=== PATIENT | male | born 1930 | race Caucasian/White ===

== ENCOUNTER → 2016-08-24 | Outpatient (CLI) | payer OTHER ==
[~2016-08-24] MED LIST: ADVIN25/60 INH; ALBUAER2 INH; AMLO-110 PO; ASPEC81 PO; AZITTAB PO; B-COTAB18 PO; FLUO0.0566 TOP; HYDR5SYP11 PO; HYT/2 PO; LOSA1TAB PO; LOSA25TA18 PO; MAGNTAB4 PO; METF-384 PO; METO-217 PO; NTRGSL/4 UT; PRIM50TA29 PO; PRLSR20 PO; SIMV20TA2 PO
--- NOTE | 2016-08-24 12:39 | MAMMOGRAPHY REPORT ---
MALE UNILATERAL LEFT DIGITAL DIAGNOSTIC MAMMOGRAM WITH CAD AND TARGETED LEFT ULTRASOUND: 08/24/2016 CLINICAL HISTORY: The patient reports a palpable lump and associated tenderness in the left breast. TECHNIQUE: Current study was also evaluated with a Computer Aided Detection (CAD) system. Left CC and MLO images were obtained. COMPARISON: Comparison is made to exams dated: 09/23/2015 mammogram and 09/23/2015 ultrasound - [facility]. BREAST COMPOSITION: The tissue of the left breast is predominantly fatty. FINDINGS: There is flame-shaped fibroglandular tissue is seen within the left subareolar breast, co nsistent with benign gynecomastia. This is stable compared to the 09/23/2015 exam. The remainder of the left breast is negative, without suspicious masses, calcifications, or areas of architectural d istortion noted. Targeted ultrasound was performed of the area of the palpable lump pointed out by the patient, in th e left breast at 12:00 periareolar region. Ultrasound was also performed of the left subareolar elen ast. Gynecomastia is again noted in the left breast which corresponds with the palpable lump, witho ut evidence of a mass or other suspicious sonographic abnormality. IMPRESSION: ACR BI-RADS CATEGORY 2: BENIGN, TARGETED ULTRASOUND ACR BI-RADS CATEGORY 2: BENIGN Left breast gynecomastia, stable compared to the August 2015 exam, which accounts for the palpable le ft breast lump. There is no mammographic or targeted sonographic evidence of malignancy. Recommend clinical follow-up as to the possible underlying cause. The patient has been verbally notified of the results. Approximately 10% of breast cancers are not detected with mammography. A negative mammographic repor t should not delay biopsy if a clinically suggestive mass is present. Shivani Lee M.D. /:08/24/2016 11:55:06 Compliance And Control Analyst: Leena HARRIS)([place]), [facility] letter sent: Normal 1/2 BI-RADS Code: ACR BI-RADS Category 2: Benign Ultrasound BI-RADS: ACR BI-RADS Category 2: Benign
== END | disposition home or self-care (01) ==
LOC: C.MAMM 10:59
PROVIDERS: ATTEND General Practice
DX: N64.4 Mastodynia (principal); N62 Hypertrophy of breast

== ENCOUNTER 2016-09-08 09:05 | Emergency (ER) | payer OTHER ==
[~2016-09-08] VITALS: Ht 160 cm; Wt 70.7 kg
[~2016-09-08 09:05] MED LIST changes: -AZITTAB PO; -FLUO0.0566 TOP; -HYDR5SYP11 PO; -LOSA1TAB PO; -LOSA25TA18 PO; -PRIM50TA29 PO
[2016-09-08 09:09] VITALS: TEMP 36.9; Ht 160 cm; Wt 70.7 kg
[2016-09-08] MEDS ORDERED: DEXAMETHASONE SOD INJ 4 MG/ML VIAL IM STA (09:21)
[2016-09-08] MEDS ORDERED: ALBUT/IPRATROP 3MG/0.5MG NEB 3 ML VIAL INH STA (09:21)
[2016-09-08] MEDS ORDERED: HYDROCODONE/HOMATROPINE SYRUP 5MG/1.5MG 5ML UDP PO STA (09:21)
[2016-09-08] MEDS ORDERED: AZITHROMYCIN 250 MG TAB PO STA (09:21)
--- NOTE | 2016-09-08 09:47 | DIAGNOSTIC IMAGING REPORT ---
CHEST 2 VIEWS ROUTINE CLINICAL HISTORY: EVALUATE RESPIRATORY DISTRESS.DYSPNEA, cough dyspnea COMPARISON STUDY: 10/22/2014 FINDINGS: The bones soft tissues and hemidiaphragms are normal. The cardiomediastinal silhouette is normal. The lungs are clear. The pulmonary vasculature is normal. Bipolar cardiac pacemaker in good position. Bilateral shoulder arthroplasties. IMPRESSION: Negative chest. Electronically signed by: Sanjay Mtz M.D. 09/08/2016 9:45 AM Dictated Date/Time: 09/08/2016 9:44 AM
[2016-09-08] MEDS ORDERED: PRIM50TA29 PO (09:56)
[2016-09-08] MEDS ORDERED: FLUO0.0566 TOP (09:56)
[2016-09-08] MEDS ORDERED: LOSA25TA18 PO (09:56)
[2016-09-08] MEDS ORDERED: LOSA1TAB PO (09:56)
[2016-09-08 11:00] VITALS: BP 165/76; PULSE 73; O2SAT 91
[2016-09-08] MEDS ORDERED: AZITTAB PO (11:19)
[2016-09-08] MEDS ORDERED: HYDR5SYP11 PO (11:19)
--- NOTE | 2016-09-08 11:21 | EMERGENCY ROOM VISIT NOTE ---
History Report prepared by Niraj: Kristel Polanco Under the Supervision of: Dr. Aquilino Soriano D.O. First contact with patient: 09:16 Chief Complaint: COUGH Stated Complaint: COUGH, CHEST PAIN History of Present Illness The patient is a 86 year old male who presents to the Emergency Room with complaints of a persistent cough starting 3 days ago. The cough is not productive. He reports SOB and sore throat. He had an ear ache on Monday also. [facility] and [facility] fine then. The cough persisted until today and [facility] he was told to present to [facility]. He has an inhaler at home which he has not been using. He has a history of diabetes and COPD. Source of History: patient Onset: 3 days ago Position: other (global) Quality: other (cough) Timing: other (persistent) Associated Symptoms: + SOB, + sorethroat Note: Pt reports ear ache. Review of Systems See HPI for pertinent positives & negatives. A total of 10 systems reviewed and were otherwise negative. 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 (14) Hypertension Nos (15) Inguinal hernia (16) Old Myocardial Infarct (17) Pure Hypercholesterolem (18) SHOULDER ARTHROSCOPY (19) Transient ischemic attack Family History Diabetes mellitus FHx: cancer Hypertension Social History Smoking Status: Former Smoker Alcohol Use: none Marital Status: Housing Status: lives with significant other Occupation Status: retired Current/Historical Medications Scheduled Amlodipine (Norvasc), 10 MG PO QAM Aspirin Enteric Coated (Ecotrin Or Generic *), 81 MG PO DAILY Azithromycin (Zithromax Z-Jose), 0 PO UD B-Complex Vitamins (Vitamin B Complex), 1 TAB PO 1200 Fluocinonide (Fluocinonide), 1 APPLN TOP BID Losartan Potassium (Cozaar), 25 MG PO DAILY@1200 Magnesium Chloride (Slow-Mag Tab), 64 MG PO BID Metformin Hcl (Glucophage), 500 MG PO BID Metoprolol Succinate (Toprol Xl), 25 MG PO QAM Nitroglycerin (Nitrostat), 0.4 MG UT PRN Omeprazole (Prilosec), 20 MG PO QPM Primidone (Mysoline), 25 MG PO BID Simvastatin (Zocor), 10 MG PO QPM Terazosin Hcl (Hytrin), 2 MG PO HS Scheduled PRN Albuterol (Ventolin Hfa), 2 PUFF INH QID PRN for SOB/Wheezing Fluticasone Prop/Salmeterol (Advair Diskus 250/50 60 Dose), 1 PUFF INH BID PRN for MD ORDER Hydrocodone W/ Homatropine (Hycodan 5/1.5MG 5 Ml), 5 ML PO Q6H PRN for coug Allergies Coded Allergies: Lisinopril (Verified Allergy, Unknown, HIVES, 09/08/16) Physical Exam Vital Signs Date Time Temp Pulse Resp B/P Pulse Ox O2 Delivery O2 Flow Rate FiO2 09/08/16 11:00 73 18 165/76 91 Room Air 09/08/16 09:36 Room Air 09/08/16 09:09 36.9 87 20 174/85 95 Room Air Physical Exam CONSTITUTIONAL/VITAL SIGNS: Reviewed / noted above. GENERAL: Non-toxic in appearance. INTEGUMENTARY: Warm, dry, and [place]. HEAD: Normocephalic. EYES: without scleral icterus or trauma. ENT/OROPHARYNX: clear and moist. Hoarseness in his voice. LYMPHADENOPATHY/NECK: Is supple without lymphadenopathy or meningismus. RESPIRATORY: Lungs clear and equal. Occasional cough. CARDIOVASCULAR: Regular rate and rhythm. GI/ABDOMEN: Soft and nontender. No organomegaly or pulsatile mass. No rebound or guarding. Normal bowel sounds. EXTREMITIES: Warm and well perfused. BACK: No CVA tenderness. NEUROLOGICAL: Intact without focal deficits. PSYCHIATRIC: normal affect. MUSCULOSKELETAL: Normally developed with good muscle tone. Medical Decision & Procedures ER Provider Diagnostic Interpretation: X ray results and stated below per my interpretation and radiology interpretation. CHEST 2 VIEWS ROUTINE CLINICAL HISTORY: EVALUATE RESPIRATORY DISTRESS.DYSPNEA, cough dyspnea COMPARISON STUDY: 10/22/2014 FINDINGS: The bones soft tissues and hemidiaphragms are normal. The cardiomediastinal silhouette is normal. The lungs are clear. The pulmonary vasculature is normal. Bipolar cardiac pacemaker in good position. Bilateral shoulder arthroplasties. IMPRESSION: Negative chest. Electronically signed by: Sanjay Mtz M.D. 09/08/2016 9:45 AM Dictated Date/Time: 09/08/2016 9:44 AM Medications Administered Medications (Trade) Dose Ordered Sig/Zaida Route Start Time Stop Time Status Last Admin Dose Admin Albuterol/ Ipratropium (Duoneb) 3 ml NOW STAT INH 09/08/16 09:21 09/08/16 09:24 DC 09/08/16 09:21 3 ML Dexamethasone Sodium Phosphate (Decadron Inj) 10 mg NOW STAT IM 09/08/16 09:21 09/08/16 09:24 DC 09/08/16 09:30 10 MG Azithromycin (Zithromax Tab) 500 mg NOW STAT PO 09/08/16 09:21 09/08/16 09:24 DC 09/08/16 09:30 500 MG Hydrocodone Bit/ Homatropine Methylb (Hycodan Syrup) 5 ml NOW STAT PO 09/08/16 09:21 09/08/16 09:24 DC 09/08/16 09:29 5 ML ED Course 0917: Previous medical records were reviewed. The patient was evaluated in room B12B. A complete history and physical examination was performed. 0921: Hycodan Syrup 5 ml PO, Azithromycin 500 mg PO, Decadron Inj 10 mg IM, Duoneb 3 ml INH. 1125: On reevaluation, the patient is resting comfortably. I discussed the results and findings with the patient. He verbalized agreement of the treatment plan. He was discharged home. Medical Decision the differential was considered includes acute myocardial infarction, acute coronary syndrome, myocarditis, pericarditis, pericardial effusions /tamponade, esophageal perforation, pulmonary embolism, pneumonia, pneumothorax, cardiomyopathy, congestive heart, anemia , COPD/asthma exacerbation. This is an 86-year-old male who presents to the ED with a chief complaint of a cough. The patient states that he has had a cough for the past 3 days. He reports shortness of breath. His cough is nonproductive. He does have hoarseness as well as a sore throat. His vital signs are stable. His physical exam reveals hoarseness in his voice. He does have an occasional nonproductive cough. His lungs are clear. He is in no respiratory distress. His vital signs are stable and his arms saturations are normal. Chest x-ray did not show acute disease. The patient was treated with Hycodan by mouth, DuoNeb treatment , Zithromax by mouth and Decadron IM. He is felt to be stable for discharge. Hycodan and Zithromax to be prescribed. Impression Primary Impression: Acute bronchitis Scribe Attestation The scribe's documentation has been prepared under my direction and personally reviewed by me in its entirety. I confirm that the note above accurately reflects all work, treatment, procedures, and medical decision making performed by me. Departure Information Dispostion Home / Self-Care Prescriptions Hydrocodone W/ Homatropine (HYCODAN 5/1.5MG 5 ML) 1 Syp Syp 5 ML PO Q6H Y for coug for 5 Days, #100 ML Prov: Aquilino Soriano D.O. 09/08/16 Azithromycin (ZITHROMAX Z-JOSE) 250 Mg Tab 0 PO UD, #1 PKT 2 TABS DAY 1, THEN 1 TAB DAILY FOR 4 DAYS Prov: Aquilino Soriano D.O. 09/08/16 Referrals Gisel Limon DO (PCP) Patient Instructions My [facility] Additional Instructions Hycodan as prescribed/as needed for cough. Zithromax: As prescribed for infection. Follow-up with your doctor as needed. Use your albuterol inhalers or nebulizers as needed. Return for any concerns or worsening.
[2017-03-14] MEDS ORDERED: CYAN10005 PO (15:51)
[2017-03-14] MEDS ORDERED: [UNRECOGNIZED DRUG - CODE] PO (15:51)
[2017-03-14] MEDS ORDERED: SYMIN160 INH (15:51)
[2017-03-14] MEDS ORDERED: ASPI81TA28 PO (15:51)
[2017-03-14] MEDS ORDERED: TPRSR25 PO (15:51)
[2017-03-14] MEDS ORDERED: MAGN500C PO (15:51)
[2017-04-17] MEDS ORDERED: ERGO500011 PO (10:42)
== END 2016-09-08 11:27 | disposition home or self-care (01) ==
LOC: C.EDB 09:07
DX: J44.0 Chronic obstructive pulmonary disease with (acute) lower respiratory infection (principal); E11.9 Type 2 diabetes mellitus without complications; I25.10 Atherosclerotic heart disease of native coronary artery without angina pectoris; K21.9 Gastro-esophageal reflux disease without esophagitis; Z98.1 Arthrodesis status; I10 Essential (primary) hypertension; I25.2 Old myocardial infarction; E78.00 Pure hypercholesterolemia, unspecified; Z86.73 Personal history of transient ischemic attack (TIA), and cerebral infarction without residual deficits; Z83.3 Family history of diabetes mellitus; Z80.9 Family history of malignant neoplasm, unspecified; Z82.49 Family history of ischemic heart disease and other diseases of the circulatory system; Z79.82 Long term (current) use of aspirin; Z79.899 Other long term (current) drug therapy

== ENCOUNTER 2017-04-14 05:11 | Inpatient (IN) | payer OTHER ==
[~2017-04-14] VITALS: Ht 170.2 cm; Wt 67.6 kg
[~2017-04-14 05:11] MED LIST changes: -ADVIN25/60 INH; -ALBUAER2 INH; -ASPEC81 PO; +ASPI81TA28 PO; +CYAN10005 PO; -HYT/2 PO; +LOSA1TAB PO; +MAGN500C PO; -MAGNTAB4 PO; -METO-217 PO; +PRIM50TA29 PO; +SYMIN160 INH; +TPRSR25 PO; +[UNRECOGNIZED DRUG - CODE] PO
[2017-04-14 05:32] LABS: BASO % 0.6 %; BASO ABS # 0.06 K/uL (0-0.2); COMPLETE YES; EOS % 5.6 %; IG% 0.4 %; LYMPH % 30.4 %; LYMPH ABS # 3.13 K/uL (1.2-3.4); MEAN CELL VOLUME 101.1 fL (80-100); MEAN CORPUSCULAR HEMOGLOBIN 35.4 pg (25-34); MEAN PLATELET VOLUME 10.1 fL (7.4-10.4); MONO % 11.1 %; NEUT % 51.9 %; PLATELET COUNT 347 K/uL (130-400); RED BLOOD COUNT 3.56 M/uL (4.7-6.1)
--- NOTE | 2017-04-14 05:33 | EMERGENCY ROOM VISIT NOTE ---
History Report prepared by Niraj: Magy Gupta Under the Supervision of: Dr. Nara Connolly D.O. First contact with patient: 05:14 Stated Complaint: ABDOMINAL PAIN History of Present Illness The patient is a 87 year old male who presents to the Emergency Room with complaints of persistent abdominal pain that started a couple of hours ago. The patient notes he woke up in the middle of night with severe abdominal pain and chest pain. He states he went to the bathroom and felt like his abdomen was "on fire". He also notes he has also been experiencing left shoulder pain. The patient received pain medications and zofran from EMS but said they only helped a little bit. He notes he was feeling nauseous but did not vomit. The patient denies having chest pain or shoulder pain in the ED at this time. He has never had a heart attack in the past. Before he went to bed last night, he felt fine. The patient states he previously had a hernia repair in the RLQ. Source of History: patient Onset: a couple of hours ago Position: abdomen (LLQ) Quality: other (felt like his abdomen was "on fire") Timing: other (persistent) Associated Symptoms: + chest pain, + nausea, No vomiting Note: Additional symptoms: left shoulder pain. Review of Systems See HPI for pertinent positives & negatives. A total of 10 systems reviewed and were otherwise negative. 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 (14) Hypertension Nos (15) Inguinal hernia (16) Old Myocardial Infarct (17) Pure Hypercholesterolem (18) SHOULDER ARTHROSCOPY (19) Transient ischemic attack Family History Diabetes mellitus FHx: cancer Hypertension Social History Smoking Status: Former Smoker Alcohol Use: none Marital Status: Housing Status: lives with significant other Occupation Status: retired Current/Historical Medications Scheduled Amlodipine (Norvasc), 5 MG PO QAM Aspirin (Aspirin Ec), 81 MG PO QAM Atorvastatin (Lipitor), 10 MG PO DAILY B-Complex Vitamins (Vitamin B Complex), 1 TAB PO 1200 Cyanocobalamin (Vitamin B-12), 1,000 MCG PO NOON Losartan Potassium (Cozaar), 25 MG PO DAILY@1200 Magnesium (Magnesium), 200 MG PO HS Metformin Hcl (Glucophage), 1,000 MG PO BID Metoprolol Succinate (Metoprolol Succinate ER), 37.5 MG PO BID Nitroglycerin (Nitrostat), 0.4 MG UT PRN Omeprazole (Prilosec), 20 MG PO QPM Primidone (Mysoline), 25 MG PO BID Terazosin HCl (Terazosin HCl), 5 MG PO HS Scheduled PRN Budesonide/Formoterol Fumarate (Symbicort 160/4.5 Inhaler ), 2 PUFFS INH BID PRN for Shortness of Breath Allergies Coded Allergies: Lisinopril (Verified Allergy, Unknown, HIVES, 04/03/17) Physical Exam Vital Signs Date Time Temp Pulse Resp B/P (MAP) Pulse Ox O2 Delivery O2 Flow Rate FiO2 04/14/17 07:20 74 18 201/94 04/14/17 06:05 207/81 04/14/17 05:36 36.4 04/14/17 05:32 34.6 04/14/17 05:25 68 04/14/17 05:21 72 18 217/84 95 Room Air Physical Exam HEENT: Head - normocephalic and atraumatic Slight scleral icterus in eyes. Extraocular eye muscles are intact, and sclera are anicteric. Nose - moist nasal mucosa without discharge. Mouth - moist buccal mucosa. Oropharynx is nonerythematous and there is no tonsillar exudate or edema noted. Neck: Supple; no JVD, nuchal rigidity, cervical lymphadenopathy. Heart: Regular rate and rhythm. There is a normal S1 and S2 with no murmurs, clicks, or gallops appreciated. Lungs: Clear to auscultation bilaterally with no wheezes, rales, or rhonchi. Abdomen: Epigastric pain with palpation. Distended. Hypoactive bowel sounds. Pain with palpation to right lower quadrant. Extremities: No evidence of cyanosis, clubbing, or edema. There are easily palpable peripheral pulses. Skin: Pale and dry with good turgor. Medical Decision & Procedures ER Provider Diagnostic Interpretation: Radiology results as stated below per my review and the radiologist's interpretation: CHEST/ABDOMEN X-RAY:: No obvious free air, moderate colonic fecal retention and possible fecal impaction. ABD/PELVIS IV CONTRAST ONLY CT DOSE: 302.23 mGy.cm HISTORY: Pain eval for sbo TECHNIQUE: Multiaxial CT images of the abdomen and pelvis were performed following the use of intravenous contrast. A dose lowering technique was utilized adhering to the principles of ALARA. COMPARISON STUDY: 03/06/2011 FINDINGS: Minimal basilar dependent interstitial change. Mild fatty infiltration liver. No evidence for gallbladder distention and possibility of several very small gallbladder polyps. Hyperdense cyst mid aspect left kidney with a small simple cyst upper pole left kidney. No evidence for urinary tract obstructive change. No evidence for hydronephrosis or hydroureter. The bowel pattern is considered nonobstructive. The appendix is normal. Findings of chronic sigmoid diverticulosis. No evidence for acute diverticulitis. IMPRESSION: 1. Chronic sigmoid diverticulosis. 2. No evidence for acute diverticulitis. 3. Several very small gallbladder polyps. 4. Nonobstructive bowel pattern. The above report was generated using voice recognition software. It may contain grammatical, syntax or spelling errors. Electronically signed by: Sanjay Mtz M.D. 04/14/2017 6:45 AM Dictated Date/Time: 04/14/2017 6:41 AM Laboratory Results 04/14/17 05:19 Red Blood Count 3.56, Mean Corpuscular Volume 101.1, Mean Corpuscular Hemoglobin 35.4, Mean Corpuscular Hemoglobin Concent 35.0, Mean Platelet Volume 10.1, Neutrophils (%) (Auto) 51.9, Lymphocytes (%) (Auto) 30.4, Monocytes (%) ( Auto) 11.1, Eosinophils (%) (Auto) 5.6, Basophils (%) (Auto) 0.6, Neutrophils # (Auto) 5.35, Lymphocytes # (Auto) 3.13, Monocytes # (Auto) 1.14, Eosinophils # ( Auto) 0.58, Basophils # (Auto) 0.06 04/14/17 05:19 Test 04/14/17 05:19 04/14/17 05:21 04/14/17 05:26 White Blood Count 10.30 K/uL (4.8-10.8) Red Blood Count 3.56 M/uL (4.7-6.1) Hemoglobin 12.6 g/dL (14.0-18.0) Hematocrit 36.0 % (42-52) Mean Corpuscular Volume 101.1 fL (80-100) Mean Corpuscular Hemoglobin 35.4 pg (25-34) Mean Corpuscular Hemoglobin Concent 35.0 g/dl (32-36) Platelet Count 347 K/uL (130-400) Mean Platelet Volume 10.1 fL (7.4-10.4) Neutrophils (%) (Auto) 51.9 % Lymphocytes (%) (Auto) 30.4 % Monocytes (%) (Auto) 11.1 % Eosinophils (%) (Auto) 5.6 % Basophils (%) (Auto) 0.6 % Neutrophils # (Auto) 5.35 K/uL (1.4-6.5) Lymphocytes # (Auto) 3.13 K/uL (1.2-3.4) Monocytes # (Auto) 1.14 K/uL (0.11-0.59) Eosinophils # (Auto) 0.58 K/uL (0-0.5) Basophils # (Auto) 0.06 K/uL (0-0.2) RDW Standard Deviation 65.3 fL (36.4-46.3) RDW Coefficient of Variation 17.7 % (11.5-14.5) Immature Granulocyte % (Auto) 0.4 % Immature Granulocyte # (Auto) 0.04 K/uL (0.00-0.02) Nucleated RBC Absolute Count (auto) 0.03 K/uL (0-0) Nucleated Red Blood Cells % 0.3 % Anion Gap 11.0 mmol/L (3-11) Est Creatinine Clear Calc Drug Dose 37.9 ml/min Estimated GFR () 56.7 Estimated GFR (Non- 49.0 BUN/Creatinine Ratio 20.2 (10-20) Calcium Level 8.4 mg/dl (8.5-10.1) Total Bilirubin 0.3 mg/dl (0.2-1) Direct Bilirubin < 0.1 mg/dl (0-0.2) Aspartate Amino Transf (AST/SGOT) 15 U/L (15-37) Alanine Aminotransferase (ALT/SGPT) 31 U/L (12-78) Alkaline Phosphatase 58 U/L (45-117) Creatine Kinase MB 1.5 ng/ml (0.5-3.6) Troponin I < 0.015 ng/ml (0-0.045) Pro-B-Type Natriuretic Peptide 211 pg/ml (0-1800) Total Protein 7.0 gm/dl (6.4-8.2) Albumin 3.7 gm/dl (3.4-5.0) Lipase 186 U/L (73-393) Creatine Kinase MB Ratio (0-3.0) Urine Color YELLOW Urine Appearance CLEAR (CLEAR) Urine pH >= 9.0 (4.5-7.5) Urine Specific [place] 1.012 (1.000-1.030) Urine Protein 2+ (NEG) Urine Glucose (UA) 1+ (NEG) Urine Ketones NEG (NEG) Urine Occult Blood NEG (NEG) Urine Nitrite NEG (NEG) Urine Bilirubin NEG (NEG) Urine Urobilinogen NEG (NEG) Urine Leukocyte Esterase NEG (NEG) Urine WBC (Auto) 1-5 /hpf (0-5) Urine RBC (Auto) 0-4 /hpf (0-4) Urine Hyaline Casts (Auto) 0 /lpf (0-5) Urine Epithelial Cells (Auto) 5-10 /lpf (0-5) Urine Bacteria (Auto) NEG (NEG) Laboratory results per my review. Medications Administered Medications (Trade) Dose Ordered Sig/Zaida Route Start Time Stop Time Status Last Admin Dose Admin Ondansetron HCl (Zofran Inj) 4 mg [facility] ONCE .ROUTE 04/14/17 06:01 04/14/17 06:02 DC 04/14/17 06:04 4 MG Sodium Chloride 1,000 ml @ 125 mls/hr Q8H STAT IV 04/14/17 07:28 04/14/17 15:27 04/14/17 07:31 125 MLS/HR Procedure Medications administered: 0601: Zofran Inj 4 mg IV ECG Indication: abdominal pain Rate (beats per minute): 90 Rhythm: atrial fibrillation Findings: no acute ischemic change, no ectopy ED Course 0514: Past medical records reviewed. The patient was evaluated in room B9. A complete history and physical exam was performed. He twelve-lead EKG was obtained. Labs were drawn as above. 0600: The patient is vomiting. I will administer medication to help his nausea. 0601: Zofran Inj 4 mg IV. The patient had an obstruction series as described above. 0650: Upon reevaluation, the patient is feeling much better. He belched a lot and his abdomen is no longer distended. I discussed findings and results with him. He verbalized agreement of the treatment plan. He is going to try drinking water and see how it goes. 0710: The patient drank water and vomited immediately after. He is now going to try sonia skip. The family reveals that the patient ate a large amount of prime rib last night for his birthday. 0725: I reassessed the patient and he is still unable to keep any fluids down. The patient will be evaluated for further management. Medical Decision The patient is a 87 year old male who presents to the ED with abdominal pain. Differential diagnosis includes diverticulitis, colitis, small bowel obstruction , ischemic bowel, ulcerative disease, aortic dissection, cardiac ischemia, pancreatitis. Lab results show: Mildly anemic Hemoglobin 12.6 Normal WBC BUN 26 Creatinine 1.3 Glucose 217 Lipase and LT's are normal Cardiac enzymes are negative Urinalysis is unremarkable. Patient awoke with some abdominal pain. He then had significant nausea and vomiting. His abdominal pain seems to have been relieved but he continues with persistent nausea and vomiting. CT scan of the abdomen and pelvis showed no evidence of a bowel obstruction. Twelve-lead EKG was unremarkable and cardiac enzymes were negative. He has had no further chest pain while here in the emergency department. I discussed the case with the [facility] Hospitalist and they will evaluate for further management. Medication Reconcilliation Current Medication List: was personally reviewed by me Blood Pressure Screening Patient's blood pressure: Elevated blood pressure Blood pressure disposition: Elevated BP felt to be situational (from vomiting and pain) Consults Time Called: 729 Consulting Physician: Paul Trent [facility] Hospitalist Returned Call: [phone] Impression Primary Impression: Intractable vomiting Additional Impression: Chest pain at rest Scribe Attestation The scribe's documentation has been prepared under my direction and personally reviewed by me in its entirety. I confirm that the note above accurately reflects all work, treatment, procedures, and medical decision making performed by me. Departure Information Dispostion Being Evaluated By Hospitalist Referrals Salome Bingham M.D. (PCP) Problem Qualifiers Primary Impression: Intractable vomiting Vomiting type: unspecified Nausea presence: with nausea Qualified Codes: R11.2 - Nausea with vomiting, unspecified
[2017-04-14] MEDS ORDERED: ATOR10TA82 PO (05:38)
[2017-04-14] MEDS ORDERED: MAGN200T3 PO (05:41)
[2017-04-14 05:42] LABS: ALT/SGPT 31 U/L (12-78); AST/SGOT 15 U/L (15-37); BLOOD UREA NITROGEN 26 mg/dl (7-18); BUN/CREATININE RATIO 20.2 (10-20); CALCIUM 8.4 mg/dl (8.5-10.1); CARBON DIOXIDE 24 mmol/L (21-32); CHLORIDE 102 mmol/L (98-107); CREATININE 1.31 mg/dl (0.60-1.40); GLUCOSE 217 mg/dl (70-99); POTASSIUM 3.5 mmol/L (3.5-5.1); SODIUM 137 mmol/L (136-145)
[2017-04-14 05:48] LABS: ALKALINE PHOSPHATASE 58 U/L (45-117)
[2017-04-14 05:51] LABS: URINE APPEARANCE CLEAR (CLEAR); URINE BILIRUBIN NEG (NEG); URINE COLOR YELLOW; URINE NITRITE NEG (NEG); URINE PH >= 9.0 (4.5-7.5); URINE SPECIFIC GRAVITY 1.012 (1.000-1.030); UROBILINOGEN NEG (NEG)
[2017-04-14 05:52] LABS: MANUAL MICROSCOPIC REQUIRED? NO; REVIEW REQ? NO
[2017-04-14 05:53] LABS: SULFASALICYLIC ACID POS (NEG)
[2017-04-14] MEDS ORDERED: ONDANSETRON INJ 2 MG/ML 2 ML VIAL ONE (06:01)
[2017-04-14] MEDS ORDERED: OPTIRAY 320 IV PRN (06:15)
--- NOTE | 2017-04-14 06:46 | DIAGNOSTIC IMAGING REPORT ---
ABD/PELVIS IV CONTRAST ONLY CT DOSE: 302.23 mGy.cm HISTORY: Pain eval for sbo TECHNIQUE: Multiaxial CT images of the abdomen and pelvis were performed following the use of intravenous contrast. A dose lowering technique was utilized adhering to the principles of ALARA. COMPARISON STUDY: 03/06/2011 FINDINGS: Minimal basilar dependent interstitial change. Mild fatty infiltration liver. No evidence for gallbladder distention and possibility of several very small gallbladder polyps. Hyperdense cyst mid aspect left kidney with a small simple cyst upper pole left kidney. No evidence for urinary tract obstructive change. No evidence for hydronephrosis or hydroureter. The bowel pattern is considered nonobstructive. The appendix is normal. Findings of chronic sigmoid diverticulosis. No evidence for acute diverticulitis. IMPRESSION: 1. Chronic sigmoid diverticulosis. 2. No evidence for acute diverticulitis. 3. Several very small gallbladder polyps. 4. Nonobstructive bowel pattern. The above report was generated using voice recognition software. It may contain grammatical, syntax or spelling errors. Electronically signed by: Sanjay Mtz M.D. 04/14/2017 6:45 AM Dictated Date/Time: 04/14/2017 6:41 AM
--- NOTE | 2017-04-14 06:58 | DIAGNOSTIC IMAGING REPORT ---
ABDOMEN 2VIEW W/PA CHEST RTN CLINICAL HISTORY: eval for sbo COMPARISON STUDY: 09/08/2016 FINDINGS: Permanent bipolar cardiac pacemaker in good position bilateral shoulder arthroplasties. Lungs are clear. No evidence of pneumothorax. Nonobstructive bowel pattern. Degenerative change lumbar spine. IMPRESSION: No acute process of the chest or abdomen. The above report was generated using voice recognition software. It may contain grammatical, syntax or spelling errors. Electronically signed by: Sanjay Mtz M.D. 04/14/2017 6:56 AM Dictated Date/Time: 04/14/2017 6:55 AM
[2017-04-14] MEDS ORDERED: SODIUM CHLORIDE 0.9% 1000ML 1,000 ML IV STA (07:28)
[2017-04-14 08:15] VITALS: O2SAT 95; Ht 170.2 cm; Wt 67.6 kg
[2017-04-14] MEDS ORDERED: ONDANSETRON INJ 2 MG/ML 2 ML VIAL IV STA (08:22)
[2017-04-14] MEDS ORDERED: ACETAMINOPHEN 325 MG TAB PO PRN (09:00)
[2017-04-14] MEDS ORDERED: GLUCOSE 10 TABS/TUBE PO PRN (09:00)
[2017-04-14] MEDS ORDERED: DEXTROSE 50% 50 ML SYR IV PRN (09:00)
[2017-04-14] MEDS ORDERED: ONDANSETRON INJ 2 MG/ML 2 ML VIAL IV PRN (09:00)
[2017-04-14] MEDS ORDERED: GLUCAGON FOR INJ 1 MG VIAL SQ PRN (09:00)
[2017-04-14] MEDS ORDERED: GLUCOSE 40% GEL 15 GM TUBE PO PRN (09:00)
[2017-04-14] MEDS ORDERED: NITROGLYCERIN 0.4 MG SL PER TAB CHARGE UT SCH (09:15)
[2017-04-14] MEDS ORDERED: BUDESONIDE/FORMOTEROL FUMARATE 160/4.5 60 PUFFS/INHALER INH PRN (09:15)
[2017-04-14] MEDS ORDERED: SODIUM CHLORIDE 0.9% 1000ML 1,000 ML IV SCH (09:30)
[2017-04-14 09:45] VITALS: BP 185/78; PULSE 65; TEMP 36.6; O2SAT 94
[2017-04-14] MEDS: POLYETHYLENE (MIRALAX) 17 GM PACK PO SCH (09:48)
[2017-04-14] MEDS ORDERED: PNEUMOCOCCAL POLYSACCHARIDES 25 MCG/0.5 ML VIAL/SYR IM. ONE (10:00)
[2017-04-14] MEDS ORDERED: PNEUMOCOCCAL ADMINISTRATION CHARGE ONE (10:00)
[2017-04-14] MEDS ORDERED: AMLODIPINE BESYLATE 5 MG TAB PO SCH (10:00)
[2017-04-14] MEDS: LOSARTAN POTASSIUM 25 MG TAB PO SCH (10:07)
[2017-04-14] MEDS: CYANOCOBALAMIN 500 MCG TAB (VIT B-12) PO SCH (10:07)
[2017-04-14] MEDS: METOPROLOL SUCC 25MG EXT REL TAB PO SCH ×2 (10:08→21:09)
[2017-04-14 10:09] LABS: INR 0.9 (0.9-1.1)
--- NOTE | 2017-04-14 10:37 | History and Physical ---
History & Physical Date & Time of Service: Apr 14, 2017 at 09:54 Chief Complaint: Intractable Vomiting Primary Care Physician: Salome Bingham M.D. 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 Patient was in a normal state of health last evening when he went out to dinner with family to celebrate his birthday. Per family, patient ate a large rare steak. Woke up early this morning with burning lower abdominal pain with some radiation to his chest. Had associated nausea, sweating , dizziness chills. Vomited food contents multiple times. Denies hematemesis. Came to ER by EMS for further evaluation. Abdominal pain has decreased and radiation of pain to chest has resolved. Patient still nauseous with episodes of vomiting since arrival. Still complaining of feeling as though the room is spinning. 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 Pain medication and zofran have helped improve symptoms. In ER, was thought to be in A Fib at 90bpm on EKG but cardiology confirmed rhythm as normal sinus with PACs. Endorses palpitations and fatigue. 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 Molina. Denies any fever, chills, headache, visual changes, CP, SOB, diarrhea, LE swelling. Past Medical/Surgical History Medical Problems: (1) Asthma with COPD Status: Chronic (2) Coronary Atherosclerosis Of [place] Coronary Vessel Status: Chronic (3) Diabetes mellitus, type II Status: Chronic (4) Diastolic HF (heart failure) Status: Chronic (5) Diverticulosis Colon (W/O Ment Of Hemorrhage) Status: Chronic (6) GERD (gastroesophageal reflux disease) Status: Chronic (7) HLD (hyperlipidemia) Status: Chronic (8) HTN (hypertension) Status: Chronic (9) Tachy-kirstie syndrome Status: Chronic Family History Diabetes mellitus FHx: cancer Hypertension Social History Smoking Status: Former Smoker Marital Status: Housing status: lives with family Occupational Status: retired Immunizations History of Influenza Vaccine: Yes Influenza Vaccine Date: Feb 17, 2011 History of Tetanus Vaccine?: Yes Tetanus Immunization Date: Aug 06, 2012 History of Pneumococcal: Unknown Pneumococcal Date: Sep 06, 2010 History of Hepatitis B Vaccine: No Multi-Drug Resistant Organisms History of MDRO: No Allergies Coded Allergies: Lisinopril (Verified Allergy, Unknown, HIVES, 04/03/17) Home Medications Scheduled Amlodipine (Norvasc), 5 MG PO QAM Aspirin (Aspirin Ec), 81 MG PO QAM Atorvastatin (Lipitor), 10 MG PO DAILY B-Complex Vitamins (Vitamin B Complex), 1 TAB PO 1200 Cyanocobalamin (Vitamin B-12), 1,000 MCG PO NOON Losartan Potassium (Cozaar), 25 MG PO DAILY@1200 Magnesium (Magnesium), 200 MG PO HS Metformin Hcl (Glucophage), 1,000 MG PO BID Metoprolol Succinate (Metoprolol Succinate ER), 37.5 MG PO BID Nitroglycerin (Nitrostat), 0.4 MG UT PRN Omeprazole (Prilosec), 20 MG PO QPM Primidone (Mysoline), 25 MG PO BID Terazosin HCl (Terazosin HCl), 5 MG PO HS Scheduled PRN Budesonide/Formoterol Fumarate (Symbicort 160/4.5 Inhaler ), 2 PUFFS INH BID PRN for Shortness of Breath Review of Systems Ten systems reviewed and negative except as noted in the HPI. Physical Exam Vital Signs Date Time Temp Pulse Resp B/P (MAP) Pulse Ox O2 Delivery O2 Flow Rate FiO2 04/14/17 09:45 36.6 65 17 185/78 (113) 94 Room Air 04/14/17 08:15 95 Room Air 04/14/17 08:00 182/84 04/14/17 07:20 74 18 201/94 04/14/17 06:05 207/81 04/14/17 05:36 36.4 04/14/17 05:32 34.6 04/14/17 05:25 68 04/14/17 05:21 72 18 217/84 95 Room Air General Appearance: no apparent distress, + mild distress (Pale, sweating, ill appearing) Head: normocephalic, atraumatic Eyes: normal inspection, PERRL, sclerae normal ENT: normal ENT inspection, hearing grossly normal, pharynx normal (Dry mucous membranes ) Neck: supple, thyroid normal, no JVD, trachea midline Respiratory/Chest: chest non-tender, lungs clear, normal breath sounds, no respiratory distress, no accessory muscle use Cardiovascular: normal peripheral pulses, + irregularly irregular Abdomen/GI: soft (Distended but soft ), + tenderness (LLQ tenderness ), + pertinent finding (Hypoactive bowel sounds) Back: normal inspection Extremities/Musculoskelatal: normal inspection, no calf tenderness, no pedal edema Neurologic/Psych: no motor/sensory deficits, alert, normal mood/affect, oriented x 3 Skin: normal color, warm/dry, no rash Diagnostics Laboratory Results Results Past 24 Hours Test 04/14/17 05:19 04/14/17 05:21 04/14/17 05:26 04/14/17 09:37 Range/Units White Blood Count 10.30 4.8-10.8 K/uL Red Blood Count 3.56 4.7-6.1 M/uL Hemoglobin 12.6 14.0-18.0 g/dL Hematocrit 36.0 42-52 % Mean Corpuscular Volume 101.1 80-100 fL Mean Corpuscular Hemoglobin 35.4 25-34 pg Mean Corpuscular Hemoglobin Concent 35.0 32-36 g/dl Platelet Count 347 130-400 K/uL Mean Platelet Volume 10.1 7.4-10.4 fL Neutrophils (%) (Auto) 51.9 % Lymphocytes (%) (Auto) 30.4 % Monocytes (%) (Auto) 11.1 % Eosinophils (%) (Auto) 5.6 % Basophils (%) (Auto) 0.6 % Neutrophils # (Auto) 5.35 1.4-6.5 K/uL Lymphocytes # (Auto) 3.13 1.2-3.4 K/uL Monocytes # (Auto) 1.14 0.11-0.59 K/uL Eosinophils # (Auto) 0.58 0-0.5 K/uL Basophils # (Auto) 0.06 0-0.2 K/uL RDW Standard Deviation 65.3 36.4-46.3 fL RDW Coefficient of Variation 17.7 11.5-14.5 % Immature Granulocyte % (Auto) 0.4 % Immature Granulocyte # (Auto) 0.04 0.00-0.02 K/uL Nucleated RBC Absolute Count (auto) 0.03 0-0 K/uL Nucleated Red Blood Cells % 0.3 % Sodium Level 137 136-145 mmol/L Potassium Level 3.5 3.5-5.1 mmol/L Chloride Level 102 98-107 mmol/L Carbon Dioxide Level 24 21-32 mmol/L Anion Gap 11.0 3-11 mmol/L Blood Urea Nitrogen 26 7-18 mg/dl Creatinine 1.31 0.60-1.40 mg/dl Est Creatinine Clear Calc Drug Dose 37.9 ml/min Estimated GFR () 56.7 Estimated GFR (Non- 49.0 BUN/Creatinine Ratio 20.2 10-20 Random Glucose 217 70-99 mg/dl Calcium Level 8.4 8.5-10.1 mg/dl Total Bilirubin 0.3 0.2-1 mg/dl Direct Bilirubin < 0.1 0-0.2 mg/dl Aspartate Amino Transf (AST/SGOT) 15 15-37 U/L Alanine Aminotransferase (ALT/SGPT) 31 12-78 U/L Alkaline Phosphatase 58 45-117 U/L Creatine Kinase MB 1.5 0.5-3.6 ng/ml Troponin I < 0.015 0-0.045 ng/ml Pro-B-Type Natriuretic Peptide 211 0-1800 pg/ml Total Protein 7.0 6.4-8.2 gm/dl Albumin 3.7 3.4-5.0 gm/dl Lipase 186 73-393 U/L Creatine Kinase MB Ratio 0-3.0 Urine Color YELLOW Urine Appearance CLEAR CLEAR Urine pH >= 9.0 4.5-7.5 Urine Specific [place] 1.012 1.000-1.030 Urine Protein 2+ NEG Urine Glucose (UA) 1+ NEG Urine Ketones NEG NEG Urine Occult Blood NEG NEG Urine Nitrite NEG NEG Urine Bilirubin NEG NEG Urine Urobilinogen NEG NEG Urine Leukocyte Esterase NEG NEG Urine WBC (Auto) 1-5 0-5 /hpf Urine RBC (Auto) 0-4 0-4 /hpf Urine Hyaline Casts (Auto) 0 0-5 /lpf Urine Epithelial Cells (Auto) 5-10 0-5 /lpf Urine Bacteria (Auto) NEG NEG Diagnostic Radiology CT abd/pelvis: IMPRESSION: 1. Chronic sigmoid diverticulosis. 2. No evidence for acute diverticulitis. 3. Several very small gallbladder polyps. 4. Nonobstructive bowel pattern. Chest/abdomen XR: IMPRESSION: No acute process of the chest or abdomen. 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 Intractable nausea/vomiting: -Likely viral gastroenteritis -IVF resuscitation -Antiemetics -Pain control Abdominal pain: -Likely 2/2 constipation, gastro -TTP of LLQ, slightly distended -Chronic h/o constipation but did have bowel movement this AM -CT abd pelvis without any acute diverticulitis, bowel obstruction -Milk of mag enema Tachy kirstie syndrome: -S/p pacemaker placement in 2014 -Endorsing palpitations on exam -Initial EKG looked like a fib but is NS with PACs -Pacemaker interrogation without any A Fib -Cont metoprolol -Monitor on tele CAD: -No active CP, EKG without ischemic changes -Continue baby aspirin, statin HTN: -Elevated 2/2 pain -BP historically elevated in hospital setting, per chart review -Gave morning amlodipine, metoprolol -Monitor and give IV hydralazine if indicated DM II: uncontrolled -Hgb a1c of 12 in Feb 2017 -Hold home agents -SSI while in-patient -BSG checks AC HS Asthma/COPD: -Stable -Denies cough, SOB -Cont home inhalers Diastolic HF: -Echo (10/10) with mild concentric LVH, preserved EF of 60-65% -Compensated -Continue home regimen DVT Ppx: SQ heparin Code status: FULL PCP: Ashly Dispo: Plan to return home once medically stable Patient seen in collaboration with Dr. Miller. Please see addendum. ADDENDUM: I have seen and evaluated the patient and discussed the case with the provider above. I was only able to perform a limited exam on my initial visit with the patient today as he consistently vomited at least 2 times while I was in the room. A phenergan suppository was given and Zofran IV was scheduled with good result. Later he was more spry and was able to stand up at the side of the bed and urinate into a urinal with minimal assistance. There were normal cranial nerves, no nystagmus on exam, cerebellar function tests were normal although patient was unable to walk without assist 2/[address] head was performed and was negative for stroke findings. Repeat troponin was negative and suspect chest pain was related to heartburn overnight after his big holiday dinner and insomnia. Otherwise physical exam was unremarkable. Cont supportive care as above and monitor progress. I otherwise agree with the assessment and plan as stated. IV hydralazine was started later in the day, as well as Lantus with stricter parameters to tighten control of blood glucose. DO Paul Level of Care Telemetry Advanced Directives Existing Living Will: No Existing Power of Compacting Machine Operator/Tender: No Resuscitation Status FULL RESUSCITATION VTE Prophylaxis VTE Risk Assessment Done? Y/N: Yes Risk Level: Moderate
[2017-04-14] MEDS ORDERED: POTASSIUM CHLORIDE INJ 40 MEQ in SODIUM CHLORIDE 0.9% 1000ML 1,000 ML IV SCH (11:00)
[2017-04-14] MEDS ORDERED: INSULIN ASPART 100 UNITS/ML 3 ML PEN SC SCH ×2 (11:00→18:00)
[2017-04-14] MEDS ORDERED: MILK AND MOLASSES ENEMA PR ONE (11:30)
[2017-04-14 11:55] LABS: INFLUENZA A PCR Neg for Influ A (NEG); INFLUENZA B PCR Neg for Influ B (NEG)
[2017-04-14] MEDS ORDERED: NON-FORMULARY MEDICATION (B-Complex Vitamins (Vitamin B Complex) 1 TAB) PO SCH (12:00)
[2017-04-14 14:58] VITALS: BP_SYST 194; BP_SYST 196; BP_DIAS 79; BP_DIAS 89; PULSE 74; TEMP 36.4; O2SAT 94
[2017-04-14] MEDS ORDERED: PROMETHAZINE HCL 12.5 MG SUPP PR ONE (15:00)
[2017-04-14] MEDS ORDERED: D5NSS + 20MEQ KCL 1,000 ML IV SCH (15:00)
--- NOTE | 2017-04-14 15:36 | DIAGNOSTIC IMAGING REPORT ---
HEAD CT NONCONTRAST CT DOSE: 638.56 mGycm HISTORY: Vomiting. Dizziness. TECHNIQUE: Multiaxial CT images of the head were performed without the use of intravenous contrast. Automated exposure control was utilized for this study. A dose lowering technique was utilized adhering to the principles of ALARA. Comparison: Head CT 10/22/2014. Findings: The paranasal sinuses and mastoid air cells are clear. The calvarium and skull base are intact. There is no mass, hematoma, midline shift, acute infarct. White matter hypodensity is nonspecific but suggestive of microvascular ischemic change. The ventricles and sulci demonstrate mild age-related involutional changes. Impression: No acute intracranial abnormality. Atrophy and microvascular ischemic changes. Electronically signed by: Greg Gray M.D. 04/14/2017 3:35 PM Dictated Date/Time: 04/14/2017 3:29 PM
[2017-04-14] MEDS: ONDANSETRON INJ 2 MG/ML 2 ML VIAL IV SCH (15:47)
[2017-04-14] MEDS ORDERED: NURSING VERBAL MED ORDER ONE ×2 (16:45→23:00)
[2017-04-14] MEDS: NSS + 20MEQ KCL 1000ML 1,000 ML IV SCH (19:25)
[2017-04-14 20:04] VITALS: BP 192/79; PULSE 76; TEMP 36.3; O2SAT 97
[2017-04-14] MEDS ORDERED: NON-FORMULARY MEDICATION (Magnesium 200 MG) PO SCH (21:00)
[2017-04-14] MEDS: HEPARIN SOD 5000 UNIT/0.5 ML CARP SQ SCH (21:10)
[2017-04-14] MEDS: INSULIN GLARGINE SOLOSTAR 100 UNITS/ML 3 ML PEN SC SCH (21:11)
[2017-04-14] MEDS: PRIMIDONE 50 MG TAB PO SCH (21:12)
[2017-04-14] MEDS: PANTOprazole SOD 40 MG TAB PO SCH (21:12)
[2017-04-14] MEDS ORDERED: HydrALAZINE HCL 20 MG/ML VIAL IV. STA (23:06)
[2017-04-14] MEDS ORDERED: HydrALAZINE HCL 20 MG/ML VIAL IV. PRN (23:15)
[2017-04-14 23:55] VITALS: BP 159/78; PULSE 81; TEMP 37.1; O2SAT 94
[2017-04-15] VITALS (7 sets, daily range): BP systolic 153–179; BP diastolic 66–83; PULSE 65–80; TEMP 36.7–37.2; O2SAT 91–96
[2017-04-15] MEDS: ONDANSETRON INJ 2 MG/ML 2 ML VIAL IV SCH ×5 (00:03→23:36)
[2017-04-15] MEDS ORDERED: INSULIN ASPART 100 UNITS/ML 3 ML PEN SC ONE (01:00)
[2017-04-15] MEDS: NSS + 20MEQ KCL 1000ML 1,000 ML IV SCH (05:17)
[2017-04-15] MEDS ORDERED: AMLODIPINE BESYLATE 5 MG TAB PO ONE (06:22)
[2017-04-15 07:20] LABS: HEMATOCRIT 32.1 % (42-52); MEAN CELL VOLUME 101.9 fL (80-100); MEAN CORPUSCULAR HEMOGLOBIN 34.9 pg (25-34); MEAN CORPUSCULAR HGB CONC 34.3 g/dl (32-36); PLATELET COUNT 297 K/uL (130-400); RED BLOOD COUNT 3.15 M/uL (4.7-6.1); WHITE BLOOD COUNT 14.05 K/uL (4.8-10.8)
[2017-04-15 07:26] LABS: ESTIMATED AVERAGE GLUCOSE 151 mg/dl; HA1C FLAG Normal (Normal); PROTHROMBIN TIME (PATIENT) 10.6 SECONDS (9.0-12.0)
[2017-04-15] MEDS: ASPIRIN 81 MG ECTAB PO SCH (07:50)
[2017-04-15] MEDS: ATORVASTATIN 10 MG TAB PO SCH (07:50)
[2017-04-15] MEDS: METOPROLOL SUCC 25MG EXT REL TAB PO SCH ×2 (07:51→21:33)
[2017-04-15] MEDS: POLYETHYLENE (MIRALAX) 17 GM PACK PO SCH (07:51)
[2017-04-15] MEDS: CYANOCOBALAMIN 500 MCG TAB (VIT B-12) PO SCH (07:51)
[2017-04-15 07:52] LABS: BUN/CREATININE RATIO 23.3 (10-20); CALCIUM 7.6 mg/dl (8.5-10.1); CREATININE 1.08 mg/dl (0.60-1.40); MAGNESIUM 1.6 mg/dl (1.8-2.4); POTASSIUM 3.9 mmol/L (3.5-5.1)
[2017-04-15 07:53] LABS: PHOSPHORUS 2.7 mg/dl (2.5-4.9)
[2017-04-15] MEDS: INSULIN ASPART 100 UNITS/ML 3 ML PEN SC SCH ×4 (07:55→21:00)
[2017-04-15] MEDS: HEPARIN SOD 5000 UNIT/0.5 ML CARP SQ SCH ×2 (07:55→21:28)
[2017-04-15] MEDS: INSULIN GLARGINE SOLOSTAR 100 UNITS/ML 3 ML PEN SC SCH ×2 (07:55→21:28)
[2017-04-15] MEDS: PRIMIDONE 50 MG TAB PO SCH ×2 (07:56→21:35)
[2017-04-15] MEDS ORDERED: MAG SULFATE IV SCH (09:00)
[2017-04-15] MEDS ORDERED: CALCIUM GLUCONATE IV SCH (09:00)
[2017-04-15] MEDS ORDERED: POLYETHYLENE (MIRALAX) 17 GM PACK PO SCH (09:00)
[2017-04-15] MEDS ORDERED: [UNRECOGNIZED DRUG - OTHER] IV SCH (09:00)
[2017-04-15] MEDS: LOSARTAN POTASSIUM 25 MG TAB PO SCH (12:20)
[2017-04-15] MEDS ORDERED: LOSARTAN POTASSIUM 25 MG TAB PO ONE (13:00)
[2017-04-15] MEDS ORDERED: HydrALAZINE HCL 20 MG/ML VIAL IV. STA (16:22)
--- NOTE | 2017-04-15 16:48 | Progress Note ---
Medicine Progress Note Date & Time of Visit: Apr 15, 2017 at 09:36. Subjective 87 yoM presents with intractable nausea and vomiting yesterday morning. He was put on IV Zofran scheduled and had a good response to a phenergan suppository with some IVF. He tolerated clear liquids this morning without issue and progressed to tolerating solids today for lunch. Earlier this morning he denied any abdominal pain, fevers, chills, or nausea and was feeling weak generally but improved from yesterday. Objective Last 8 Hrs Date Time Temp Pulse Resp B/P (MAP) Pulse Ox O2 Delivery O2 Flow Rate FiO2 04/15/17 07:45 Room Air 04/15/17 04:43 36.9 80 18 172/83 (112) 96 Room Air 04/15/17 04:00 95 Room Air Physical Exam: GEN: WNWD, in no acute distress, alert and appropriate HEENT: NC/AT, normal sclerae, MMM CARDIO: reg rate, S1/2 heard without m/g/r LUNGS: CTA bilaterally, no crackles, rales or wheezes, good diaphragmatic excursion ABD: +BS, soft, non-tender, non-distended, no rebound or guarding EXTREMITY: RP and DP palpable 2+ bilat, no LE swelling or edema, extremities are warm and well-perfused NEURO: CN 2-12 grossly intact, no gross focal deficits. MUSC: moves all extremities equally, no gross focal deficits. SKIN: warm and dry Laboratory Results: 04/15/17 06:47 04/15/17 06:47 Test 04/14/17 00:00 04/14/17 05:19 04/14/17 05:21 04/14/17 05:26 Influenza Type A (RT-PCR) Neg for Influ A (NEG) Influenza Type B (RT-PCR) Neg for Influ B (NEG) Immature Granulocyte % (Auto) 0.4 % White Blood Count 10.30 K/uL (4.8-10.8) Red Blood Count 3.56 M/uL (4.7-6.1) Hemoglobin 12.6 g/dL (14.0-18.0) Hematocrit 36.0 % (42-52) Mean Corpuscular Volume 101.1 fL (80-100) Mean Corpuscular Hemoglobin 35.4 pg (25-34) Mean Corpuscular Hemoglobin Concent 35.0 g/dl (32-36) Platelet Count 347 K/uL (130-400) Mean Platelet Volume 10.1 fL (7.4-10.4) Neutrophils (%) (Auto) 51.9 % Lymphocytes (%) (Auto) 30.4 % Monocytes (%) (Auto) 11.1 % Eosinophils (%) (Auto) 5.6 % Basophils (%) (Auto) 0.6 % Neutrophils # (Auto) 5.35 K/uL (1.4-6.5) Lymphocytes # (Auto) 3.13 K/uL (1.2-3.4) Monocytes # (Auto) 1.14 K/uL (0.11-0.59) Eosinophils # (Auto) 0.58 K/uL (0-0.5) Basophils # (Auto) 0.06 K/uL (0-0.2) Immature Granulocyte # (Auto) 0.04 K/uL (0.00-0.02) Total Bilirubin 0.3 mg/dl (0.2-1) Direct Bilirubin < 0.1 mg/dl (0-0.2) Aspartate Amino Transf (AST/SGOT) 15 U/L (15-37) Alanine Aminotransferase (ALT/SGPT) 31 U/L (12-78) Alkaline Phosphatase 58 U/L (45-117) Creatine Kinase MB 1.5 ng/ml (0.5-3.6) Pro-B-Type Natriuretic Peptide 211 pg/ml (0-1800) Total Protein 7.0 gm/dl (6.4-8.2) Albumin 3.7 gm/dl (3.4-5.0) Lipase 186 U/L (73-393) Creatine Kinase MB Ratio (0-3.0) Urine Color YELLOW Urine Appearance CLEAR (CLEAR) Urine pH >= 9.0 (4.5-7.5) Urine Specific [place] 1.012 (1.000-1.030) Urine Protein 2+ (NEG) Urine Glucose (UA) 1+ (NEG) Urine Ketones NEG (NEG) Urine Occult Blood NEG (NEG) Urine Nitrite NEG (NEG) Urine Bilirubin NEG (NEG) Urine Urobilinogen NEG (NEG) Urine Leukocyte Esterase NEG (NEG) Urine WBC (Auto) 1-5 /hpf (0-5) Urine RBC (Auto) 0-4 /hpf (0-4) Urine Hyaline Casts (Auto) 0 /lpf (0-5) Urine Epithelial Cells (Auto) 5-10 /lpf (0-5) Urine Bacteria (Auto) NEG (NEG) Test 04/14/17 09:37 04/14/17 15:01 04/15/17 06:47 04/15/17 07:33 Thyroid Stimulating Hormone (TSH) 2.120 uIu/ml (0.300-4.500) Troponin I < 0.015 ng/ml (0-0.045) Red Blood Count 3.15 M/uL (4.7-6.1) Mean Corpuscular Volume 101.9 fL (80-100) Mean Corpuscular Hemoglobin 34.9 pg (25-34) Mean Corpuscular Hemoglobin Concent 34.3 g/dl (32-36) RDW Standard Deviation 66.5 fL (36.4-46.3) RDW Coefficient of Variation 18.1 % (11.5-14.5) Mean Platelet Volume 10.0 fL (7.4-10.4) Nucleated RBC Absolute Count (auto) 0.02 K/uL (0-0) Nucleated Red Blood Cells % 0.2 % Prothrombin Time 10.6 SECONDS (9.0-12.0) Prothromb Time International Ratio 1.0 (0.9-1.1) Anion Gap 7.0 mmol/L (3-11) Est Creatinine Clear Calc Drug Dose 45.9 ml/min Estimated GFR () 71.6 Estimated GFR (Non- 61.8 BUN/Creatinine Ratio 23.3 (10-20) Estimated Average Glucose 151 mg/dl Hemoglobin A1c 6.9 % (4.5-5.6) Calcium Level 7.6 mg/dl (8.5-10.1) Phosphorus Level 2.7 mg/dl (2.5-4.9) Magnesium Level 1.6 mg/dl (1.8-2.4) Bedside Glucose 178 mg/dl (70-99) Test 04/15/17 09:40 25-Hydroxy Vitamin D Total 21.8 ng/ml (30-100) Last 24 Hours Test 04/14/17 09:37 04/14/17 11:31 04/14/17 15:01 04/14/17 17:53 Prothrombin Time 10.0 SECONDS Prothromb Time International Ratio 0.9 Thyroid Stimulating Hormone (TSH) 2.120 uIu/ml Bedside Glucose 286 mg/dl 271 mg/dl Troponin I < 0.015 ng/ml Test 04/14/17 20:39 04/15/17 01:25 04/15/17 06:47 04/15/17 07:33 Bedside Glucose 241 mg/dl 162 mg/dl 178 mg/dl White Blood Count 14.05 K/uL Red Blood Count 3.15 M/uL Hemoglobin 11.0 g/dL Hematocrit 32.1 % Mean Corpuscular Volume 101.9 fL Mean Corpuscular Hemoglobin 34.9 pg Mean Corpuscular Hemoglobin Concent 34.3 g/dl RDW Standard Deviation 66.5 fL RDW Coefficient of Variation 18.1 % Platelet Count 297 K/uL Mean Platelet Volume 10.0 fL Nucleated RBC Absolute Count (auto) 0.02 K/uL Nucleated Red Blood Cells % 0.2 % Prothrombin Time 10.6 SECONDS Prothromb Time International Ratio 1.0 Sodium Level 139 mmol/L Potassium Level 3.9 mmol/L Chloride Level 107 mmol/L Carbon Dioxide Level 25 mmol/L Anion Gap 7.0 mmol/L Blood Urea Nitrogen 25 mg/dl Creatinine 1.08 mg/dl Est Creatinine Clear Calc Drug Dose 45.9 ml/min Estimated GFR () 71.6 Estimated GFR (Non- 61.8 BUN/Creatinine Ratio 23.3 Random Glucose 169 mg/dl Estimated Average Glucose 151 mg/dl Hemoglobin A1c 6.9 % Calcium Level 7.6 mg/dl Phosphorus Level 2.7 mg/dl Magnesium Level 1.6 mg/dl Test 04/15/17 09:35 Assessment & Plan 87 yoM presents with intractable nausea and vomiting yesterday morning. He was put on IV Zofran scheduled and had a good response to a phenergan suppository with some IVF. He tolerated clear liquids this morning without issue and progressed to tolerating solids today for lunch. Earlier this morning he denied any abdominal pain, fevers, chills, or nausea and was feeling weak generally but improved from yesterday. 1. Nausea and vomiting-resolved. Will change Zofran back to PRN. IVF were stopped. Electrolytes were replaced. 2. Abdominal pain -resolved. Was likely 2/2 constipation with an improvement with pain and abdominal distention after MOM enema yesterday. 3. Sick sinus syndrome s/p pacemaker in 2015. Interrogation performed and no atrial fibrillation was present. Atrial fibrillation seen on initial EKG was not considered to be afib per Cardiology. cont metoprolol 4. CAD-had some chest pain prior to arrival, however, this resolved and has not returned. Workup including serial cardiac enzymes was negative. PM interrogation as above. Suspect patient had heartburn after his birthday dinner while lying flat with insomnia overnight. Cont ASA 81 and statin for medical management. 5. HTN-elevated. Per chart review he does have a h/o elevated BP while in the hospital. Losartan was increased to 50mg daily and amlodipine was increased to 10mg. Cont PRN hydralazine as needed. 6. DMII-was uncontrolled but improved with addition of Lantus and tightening of BS control. 7. COPD-not on home oxygen, stable. Cont home inhalers. 8. Chronic diastolic heart failure-compensated. 9. Leukocytosis-likely stress response 10. vitamin D insufficiency-replacing with ergocalciferol x 12 weeks. 11. Multiple falls at home-patient reported this to me. vit D replacement as above. PT/OT evaluation pending. I discussed with his the importance of removing obstacles such as runner rugs in the home and encouraged her to bring this up at the PCP follow-up appointment. She verbalized understanding with intent to comply. DVT Ppx: SQ heparin Code status: FULL PCP: Ashly Dispo: Plan to return home once medically stable; pending PT evaluation. I called the and spoke with her by phone and updated her on the plan. All questions were answered to her satisfaction. Rosalia Miller DO [facility] Hospitalist Current Inpatient Medications: Current Inpatient Medications Medications (Trade) Dose Ordered Sig/Zaida Route Start Time Stop Time Status Last Admin Dose Admin Ioversol (Optiray 320) 100 ml UD PRN IV 04/14/17 06:15 04/18/17 06:14 Acetaminophen (Tylenol Tab) 650 mg Q4H PRN PO 04/14/17 09:00 05/14/17 08:59 Glucose (Glucose 40% Gel) 15-30 GRAMS 15 GRAMS... UD PRN PO 04/14/17 09:00 05/14/17 08:59 Glucose (Glucose Chew Tab) 4-8 Tablets 4 Tabl... UD PRN PO 04/14/17 09:00 05/14/17 08:59 Dextrose (Dextrose 50% 50ML Syringe) 25-50ML OF 50% DW IV FOR... UD PRN IV 04/14/17 09:00 05/14/17 08:59 Glucagon (Glucagon Inj) 1 mg UD PRN SQ 04/14/17 09:00 05/14/17 08:59 Aspirin (Ecotrin Tab) 81 mg QAM PO 04/15/17 09:00 05/15/17 08:59 04/15/17 07:50 81 MG Atorvastatin Calcium (Lipitor Tab) 10 mg DAILY PO 04/15/17 09:00 05/15/17 08:59 04/15/17 07:50 10 MG Budesonide/ Formoterol Fumarate (Symbicort 160/ 4.5 Inh) 2 puffs BID PRN INH 04/14/17 09:15 05/14/17 09:14 Cyanocobalamin (Vitamin B-12 Tab) 1,000 mcg DAILY PO 04/14/17 12:00 05/14/17 11:59 04/15/17 07:51 1,000 MCG Losartan Potassium (coZAAR TAB) 25 mg DAILY@1200 PO 04/14/17 12:00 05/14/17 11:59 04/14/17 10:07 25 MG Metoprolol Succinate (Toprol Xl Tab) 37.5 mg BID PO 04/14/17 10:00 05/14/17 09:59 04/15/17 07:51 37.5 MG Nitroglycerin (Nitrostat Tab) 0.4 mg PRN UT 04/14/17 09:15 05/14/17 09:14 Primidone (Mysoline Tab) 25 mg BID PO 04/14/17 21:00 05/14/17 20:59 04/15/17 07:56 25 MG Terazosin HCl (Hytrin Cap) 5 mg HS PO 04/14/17 21:00 05/14/17 20:59 04/14/17 21:12 5 MG Pantoprazole Sodium (Protonix Tab) 40 mg QPM PO 04/14/17 21:00 05/14/17 20:59 04/14/17 21:12 40 MG Polyethylene (Miralax Powder Packet) 17 gm DAILY PO 04/14/17 10:00 05/15/17 08:59 04/15/17 07:51 17 GM Heparin Sodium (Porcine) (Heparin Sq 5000 Unit/0.5ml) 5,000 unit Q12 SQ 04/14/17 21:00 05/14/17 20:59 04/15/17 07:55 5,000 UNIT Ondansetron HCl (Zofran Inj) 4 mg Q6 IV 04/14/17 15:00 05/14/17 14:59 04/15/17 05:52 4 MG Potassium Chloride/Sodium Chloride 1,000 ml @ 100 mls/hr Q10H IV 04/14/17 19:00 05/14/17 18:59 04/15/17 05:17 100 MLS/HR Insulin Glargine (Lantus Solostar Pen) 10 units Q12 SC 04/14/17 21:00 05/14/17 20:59 04/15/17 07:55 10 UNITS Insulin Aspart (novoLOG ASPART) SLIDING SCALE If C... ACHS SC 04/15/17 06:30 05/15/17 06:29 04/15/17 07:55 5 UNITS Hydralazine HCl (HydrALAZINE INJ) 10 mg Q6H PRN IV. 04/14/17 23:15 05/14/17 23:14 Amlodipine Besylate (Norvasc Tab) 10 mg QAM PO 04/16/17 09:00 05/14/17 09:59 Magnesium Sulfate 4 gm/Calcium Gluconate 2000 mg/ Sodium Chloride 528 ml @ 125 mls/hr Q4H14M IV 04/15/17 09:00 04/15/17 13:13 04/15/17 09:34 125 MLS/HR
[2017-04-15] MEDS ORDERED: ERGOCALCIFEROL 50,000 INTER.UNIT CAP PO SCH (18:00)
[2017-04-15] MEDS: PANTOprazole SOD 40 MG TAB PO SCH (21:33)
[2017-04-16] MEDS ORDERED: LORAZEPAM 0.5 MG TAB PO STA (01:48)
[2017-04-16 04:11] VITALS: BP 176/72; PULSE 84; TEMP 36.8; O2SAT 92
[2017-04-16] MEDS: ONDANSETRON INJ 2 MG/ML 2 ML VIAL IV SCH (05:52)
[2017-04-16 07:11] LABS: HEMATOCRIT 29.9 % (42-52); MEAN CELL VOLUME 100.3 fL (80-100); MEAN CORPUSCULAR HEMOGLOBIN 34.9 pg (25-34); MEAN CORPUSCULAR HGB CONC 34.8 g/dl (32-36); MEAN PLATELET VOLUME 9.6 fL (7.4-10.4); PLATELET COUNT 259 K/uL (130-400); RED BLOOD COUNT 2.98 M/uL (4.7-6.1); WHITE BLOOD COUNT 10.53 K/uL (4.8-10.8)
[2017-04-16] MEDS: AMLODIPINE BESYLATE 5 MG TAB PO SCH (07:33)
[2017-04-16] MEDS: LOSARTAN POTASSIUM 50 MG TAB PO SCH (07:33)
[2017-04-16] MEDS: METOPROLOL SUCC 25MG EXT REL TAB PO SCH ×2 (07:33→19:59)
[2017-04-16] MEDS: PRIMIDONE 50 MG TAB PO SCH ×2 (07:33→20:00)
[2017-04-16] MEDS: CYANOCOBALAMIN 500 MCG TAB (VIT B-12) PO SCH (07:33)
[2017-04-16] MEDS: ATORVASTATIN 10 MG TAB PO SCH (07:33)
[2017-04-16] MEDS: ASPIRIN 81 MG ECTAB PO SCH (07:33)
[2017-04-16] MEDS: POLYETHYLENE (MIRALAX) 17 GM PACK PO SCH (07:34)
[2017-04-16] MEDS: HEPARIN SOD 5000 UNIT/0.5 ML CARP SQ SCH ×2 (07:35→20:59)
[2017-04-16 07:43] VITALS: BP_SYST 147; BP_SYST 168; BP_DIAS 67; BP_DIAS 75; PULSE 60; PULSE 75; TEMP 36.7; O2SAT 94; O2SAT 97
[2017-04-16 07:48] LABS: BUN/CREATININE RATIO 17.3 (10-20); CALCIUM 8.4 mg/dl (8.5-10.1); CREATININE 1.09 mg/dl (0.60-1.40); MAGNESIUM 2.1 mg/dl (1.8-2.4); POTASSIUM 3.7 mmol/L (3.5-5.1)
[2017-04-16] MEDS: INSULIN ASPART 100 UNITS/ML 3 ML PEN SC SCH ×4 (08:04→20:55)
[2017-04-16] MEDS: INSULIN GLARGINE SOLOSTAR 100 UNITS/ML 3 ML PEN SC SCH ×2 (08:04→20:59)
[2017-04-16 11:25] VITALS: O2SAT 97
[2017-04-16 14:25] VITALS: BP 129/75; PULSE 64; TEMP 36.9; O2SAT 93
--- NOTE | 2017-04-16 14:25 | Progress Note ---
Medicine Progress Note Date & Time of Visit: Apr 16, 2017 at 0900. Subjective 87 yoM presents with intractable nausea and vomiting which resolved within 24 hours with scheduled Zofran and a phenergan suppository. He has progressed to tolerating PO but began to feel some bloating without acute abdominal pain last night and this morning. He is on scheduled Miralax and last BM was two days ago. PT evaluation still pending. -tolerating PO but having some bloating -encouraged ambulation with assist today -denies abdominal pain, but reports some chronic abdominal pain in his LLQ -denies nausea or vomiting and no fevers or chills. Objective Last 8 Hrs Date Time Temp Pulse Resp B/P (MAP) Pulse Ox O2 Delivery O2 Flow Rate FiO2 04/16/17 11:25 97 Room Air 04/16/17 08:00 Room Air 04/16/17 07:43 36.7 60 18 168/75 (106) 97 Physical Exam: GEN: WNWD, in no acute distress, alert and appropriate HEENT: NC/AT, normal sclerae, MMM CARDIO: reg rate, S1/2 heard without m/g/r LUNGS: CTA bilaterally, no crackles, rales or wheezes, good diaphragmatic excursion ABD: +BS, soft, slight discomfort in LLQ (baseline per patient), non-distended, no rebound or guarding EXTREMITY: RP and DP palpable 2+ bilat, no LE swelling or edema, extremities are warm and well-perfused NEURO: CN 2-12 grossly intact, no gross focal deficits. MUSC: moves all extremities equally, no gross focal deficits. SKIN: warm and dry Laboratory Results: 04/16/17 06:46 04/16/17 06:46 Test 04/14/17 00:00 04/14/17 05:19 04/14/17 05:21 04/14/17 05:26 Influenza Type A (RT-PCR) Neg for Influ A (NEG) Influenza Type B (RT-PCR) Neg for Influ B (NEG) Immature Granulocyte % (Auto) 0.4 % White Blood Count 10.30 K/uL (4.8-10.8) Red Blood Count 3.56 M/uL (4.7-6.1) Hemoglobin 12.6 g/dL (14.0-18.0) Hematocrit 36.0 % (42-52) Mean Corpuscular Volume 101.1 fL (80-100) Mean Corpuscular Hemoglobin 35.4 pg (25-34) Mean Corpuscular Hemoglobin Concent 35.0 g/dl (32-36) Platelet Count 347 K/uL (130-400) Mean Platelet Volume 10.1 fL (7.4-10.4) Neutrophils (%) (Auto) 51.9 % Lymphocytes (%) (Auto) 30.4 % Monocytes (%) (Auto) 11.1 % Eosinophils (%) (Auto) 5.6 % Basophils (%) (Auto) 0.6 % Neutrophils # (Auto) 5.35 K/uL (1.4-6.5) Lymphocytes # (Auto) 3.13 K/uL (1.2-3.4) Monocytes # (Auto) 1.14 K/uL (0.11-0.59) Eosinophils # (Auto) 0.58 K/uL (0-0.5) Basophils # (Auto) 0.06 K/uL (0-0.2) Immature Granulocyte # (Auto) 0.04 K/uL (0.00-0.02) Total Bilirubin 0.3 mg/dl (0.2-1) Direct Bilirubin < 0.1 mg/dl (0-0.2) Aspartate Amino Transf (AST/SGOT) 15 U/L (15-37) Alanine Aminotransferase (ALT/SGPT) 31 U/L (12-78) Alkaline Phosphatase 58 U/L (45-117) Creatine Kinase MB 1.5 ng/ml (0.5-3.6) Pro-B-Type Natriuretic Peptide 211 pg/ml (0-1800) Total Protein 7.0 gm/dl (6.4-8.2) Albumin 3.7 gm/dl (3.4-5.0) Lipase 186 U/L (73-393) Creatine Kinase MB Ratio (0-3.0) Urine Color YELLOW Urine Appearance CLEAR (CLEAR) Urine pH >= 9.0 (4.5-7.5) Urine Specific [place] 1.012 (1.000-1.030) Urine Protein 2+ (NEG) Urine Glucose (UA) 1+ (NEG) Urine Ketones NEG (NEG) Urine Occult Blood NEG (NEG) Urine Nitrite NEG (NEG) Urine Bilirubin NEG (NEG) Urine Urobilinogen NEG (NEG) Urine Leukocyte Esterase NEG (NEG) Urine WBC (Auto) 1-5 /hpf (0-5) Urine RBC (Auto) 0-4 /hpf (0-4) Urine Hyaline Casts (Auto) 0 /lpf (0-5) Urine Epithelial Cells (Auto) 5-10 /lpf (0-5) Urine Bacteria (Auto) NEG (NEG) Test 04/14/17 09:37 04/14/17 15:01 04/15/17 06:47 04/15/17 09:40 Thyroid Stimulating Hormone (TSH) 2.120 uIu/ml (0.300-4.500) Troponin I < 0.015 ng/ml (0-0.045) Nucleated RBC Absolute Count (auto) 0.02 K/uL (0-0) Nucleated Red Blood Cells % 0.2 % Prothrombin Time 10.6 SECONDS (9.0-12.0) Prothromb Time International Ratio 1.0 (0.9-1.1) Estimated Average Glucose 151 mg/dl Hemoglobin A1c 6.9 % (4.5-5.6) Phosphorus Level 2.7 mg/dl (2.5-4.9) 25-Hydroxy Vitamin D Total 21.8 ng/ml (30-100) Test 04/16/17 06:46 04/16/17 11:33 Red Blood Count 2.98 M/uL (4.7-6.1) Mean Corpuscular Volume 100.3 fL (80-100) Mean Corpuscular Hemoglobin 34.9 pg (25-34) Mean Corpuscular Hemoglobin Concent 34.8 g/dl (32-36) RDW Standard Deviation 66.4 fL (36.4-46.3) RDW Coefficient of Variation 18.0 % (11.5-14.5) Mean Platelet Volume 9.6 fL (7.4-10.4) Anion Gap 1.0 mmol/L (3-11) Est Creatinine Clear Calc Drug Dose 45.5 ml/min Estimated GFR () 70.9 Estimated GFR (Non- 61.1 BUN/Creatinine Ratio 17.3 (10-20) Calcium Level 8.4 mg/dl (8.5-10.1) Magnesium Level 2.1 mg/dl (1.8-2.4) Bedside Glucose 143 mg/dl (70-99) Last 24 Hours Test 04/15/17 16:34 04/15/17 19:58 04/16/17 06:46 04/16/17 07:23 Bedside Glucose 116 mg/dl 166 mg/dl 155 mg/dl White Blood Count 10.53 K/uL Red Blood Count 2.98 M/uL Hemoglobin 10.4 g/dL Hematocrit 29.9 % Mean Corpuscular Volume 100.3 fL Mean Corpuscular Hemoglobin 34.9 pg Mean Corpuscular Hemoglobin Concent 34.8 g/dl RDW Standard Deviation 66.4 fL RDW Coefficient of Variation 18.0 % Platelet Count 259 K/uL Mean Platelet Volume 9.6 fL Sodium Level 133 mmol/L Potassium Level 3.7 mmol/L Chloride Level 106 mmol/L Carbon Dioxide Level 26 mmol/L Anion Gap 1.0 mmol/L Blood Urea Nitrogen 19 mg/dl Creatinine 1.09 mg/dl Est Creatinine Clear Calc Drug Dose 45.5 ml/min Estimated GFR () 70.9 Estimated GFR (Non- 61.1 BUN/Creatinine Ratio 17.3 Random Glucose 130 mg/dl Calcium Level 8.4 mg/dl Magnesium Level 2.1 mg/dl Test 04/16/17 11:33 Bedside Glucose 143 mg/dl Assessment & Plan 87 yoM presents with intractable nausea and vomiting which resolved within 24 hours with scheduled Zofran and a phenergan suppository. He has progressed to tolerating PO but began to feel some bloating without acute abdominal pain last night and this morning. He is on scheduled Miralax and last BM was two days ago. PT evaluation still pending. 1. Nausea and vomiting-resolved. Will change Zofran back to PRN. IVF were stopped. Electrolytes were replaced. 2. Abdominal pain -resolved. Was likely 2/2 constipation with an improvement with pain and abdominal distention after MOM enema yesterday. 3. Bloating-poss related to system adjusting to food after significant vomiting from acute GI illness. Bowel sounds are present, no acute abdominal pain present and no distention on exam. No imaging at this point but will consider KUB if symptoms worsen. 3. Sick sinus syndrome s/p pacemaker in 2014. Interrogation performed and no atrial fibrillation was present. Atrial fibrillation seen on initial EKG was not considered to be afib per Cardiology. cont metoprolol 4. CAD-had some chest pain prior to arrival, however, this resolved and has not returned. Workup including serial cardiac enzymes was negative. PM interrogation as above. Suspect patient had heartburn after his birthday dinner while lying flat with insomnia overnight. Cont ASA 81 and statin for medical management of known CAD. 5. HTN-still elevated. Will consider increasing losartan to 100mg daily. Was increased to 50mg yesterday so it is still early to see full response. Hydralazine PRN. 6. DMII-controlled on ISS/glargine with carb coverage. 7. COPD-not on home oxygen, stable. Cont home inhalers. 8. Chronic diastolic heart failure-compensated. 9. Leukocytosis-likely stress response, resolved. 10. vitamin D insufficiency-replacing with ergocalciferol x 12 weeks. 11. Multiple falls at home-patient reported this to me. vit D replacement as above. PT/OT evaluation pending. I discussed with his the importance of removing obstacles such as runner rugs in the home and encouraged her to bring this up at the PCP follow-up appointment. She verbalized understanding with intent to comply. DVT Ppx: SQ heparin Code status: FULL PCP: Ashly Dispo: Plan to return home once medically stable; pending PT evaluation. Rosalia Miller DO [facility] Hospitalist Current Inpatient Medications: Current Inpatient Medications Medications (Trade) Dose Ordered Sig/Zaida Route Start Time Stop Time Status Last Admin Dose Admin Ioversol (Optiray 320) 100 ml UD PRN IV 04/14/17 06:15 04/18/17 06:14 Acetaminophen (Tylenol Tab) 650 mg Q4H PRN PO 04/14/17 09:00 05/14/17 08:59 Glucose (Glucose 40% Gel) 15-30 GRAMS 15 GRAMS... UD PRN PO 04/14/17 09:00 05/14/17 08:59 Glucose (Glucose Chew Tab) 4-8 Tablets 4 Tabl... UD PRN PO 04/14/17 09:00 05/14/17 08:59 Dextrose (Dextrose 50% 50ML Syringe) 25-50ML OF 50% DW IV FOR... UD PRN IV 04/14/17 09:00 05/14/17 08:59 Glucagon (Glucagon Inj) 1 mg UD PRN SQ 04/14/17 09:00 05/14/17 08:59 Aspirin (Ecotrin Tab) 81 mg QAM PO 04/15/17 09:00 05/15/17 08:59 04/16/17 07:33 81 MG Atorvastatin Calcium (Lipitor Tab) 10 mg DAILY PO 04/15/17 09:00 05/15/17 08:59 04/16/17 07:33 10 MG Budesonide/ Formoterol Fumarate (Symbicort 160/ 4.5 Inh) 2 puffs BID PRN INH 04/14/17 09:15 05/14/17 09:14 Cyanocobalamin (Vitamin B-12 Tab) 1,000 mcg DAILY PO 04/14/17 12:00 05/14/17 11:59 04/16/17 07:33 1,000 MCG Metoprolol Succinate (Toprol Xl Tab) 37.5 mg BID PO 04/14/17 10:00 05/14/17 09:59 04/16/17 07:33 37.5 MG Nitroglycerin (Nitrostat Tab) 0.4 mg PRN UT 04/14/17 09:15 05/14/17 09:14 Primidone (Mysoline Tab) 25 mg BID PO 04/14/17 21:00 05/14/17 20:59 04/16/17 07:33 25 MG Terazosin HCl (Hytrin Cap) 5 mg HS PO 04/14/17 21:00 05/14/17 20:59 04/15/17 21:35 5 MG Pantoprazole Sodium (Protonix Tab) 40 mg QPM PO 04/14/17 21:00 05/14/17 20:59 04/15/17 21:33 40 MG Polyethylene (Miralax Powder Packet) 17 gm DAILY PO 04/14/17 10:00 05/15/17 08:59 04/16/17 07:34 17 GM Heparin Sodium (Porcine) (Heparin Sq 5000 Unit/0.5ml) 5,000 unit Q12 SQ 04/14/17 21:00 05/14/17 20:59 04/16/17 07:35 5,000 UNIT Insulin Glargine (Lantus Solostar Pen) 10 units Q12 SC 04/14/17 21:00 05/14/17 20:59 04/16/17 08:04 10 UNITS Insulin Aspart (novoLOG ASPART) SLIDING SCALE If C... ACHS SC 04/15/17 06:30 05/15/17 06:29 04/16/17 12:37 9 UNITS Hydralazine HCl (HydrALAZINE INJ) 10 mg Q6H PRN IV. 04/14/17 23:15 05/14/17 23:14 Amlodipine Besylate (Norvasc Tab) 10 mg QAM PO 04/16/17 09:00 05/14/17 09:59 04/16/17 07:33 10 MG Losartan Potassium (coZAAR TAB) 50 mg QAM PO 04/16/17 09:00 05/16/17 08:59 04/16/17 07:33 50 MG Ergocalciferol (Vitamin D Cap) 50,000 interunit Q7D@1800 PO 04/15/17 18:00 05/15/17 17:59 04/15/17 18:16 50,000 INTERUNIT
[2017-04-16] MEDS: PANTOprazole SOD 40 MG TAB PO SCH (19:58)
[2017-04-16 20:00] VITALS: O2SAT 93
[2017-04-16 23:42] VITALS: BP_SYST 120; BP_SYST 128; BP_DIAS 61; BP_DIAS 63; PULSE 64; PULSE 71; TEMP 36.5; TEMP 37; O2SAT 94; O2SAT 95
[2017-04-17] VITALS: O2SAT 93; O2SAT 98
[2017-04-17 04:55] VITALS: BP 148/70; PULSE 60; TEMP 36.4; O2SAT 92
[2017-04-17 06:24] LABS: BUN/CREATININE RATIO 13.6 (10-20); CALCIUM 8.2 mg/dl (8.5-10.1); CREATININE 1.21 mg/dl (0.60-1.40); POTASSIUM 3.9 mmol/L (3.5-5.1)
[2017-04-17 07:37] VITALS: BP 156/78; PULSE 57; TEMP 36.5; O2SAT 97
[2017-04-17] MEDS: CYANOCOBALAMIN 500 MCG TAB (VIT B-12) PO SCH (07:57)
[2017-04-17] MEDS: AMLODIPINE BESYLATE 5 MG TAB PO SCH (07:57)
[2017-04-17] MEDS: ASPIRIN 81 MG ECTAB PO SCH (07:57)
[2017-04-17] MEDS: ATORVASTATIN 10 MG TAB PO SCH (07:57)
[2017-04-17] MEDS: PRIMIDONE 50 MG TAB PO SCH (07:58)
[2017-04-17] MEDS: LOSARTAN POTASSIUM 50 MG TAB PO SCH (07:58)
[2017-04-17] MEDS: METOPROLOL SUCC 25MG EXT REL TAB PO SCH (07:58)
[2017-04-17] MEDS: POLYETHYLENE (MIRALAX) 17 GM PACK PO SCH (07:59)
[2017-04-17] MEDS: INSULIN ASPART 100 UNITS/ML 3 ML PEN SC SCH ×2 (08:01→12:13)
[2017-04-17] MEDS: INSULIN GLARGINE SOLOSTAR 100 UNITS/ML 3 ML PEN SC SCH (08:02)
[2017-04-17 08:10] VITALS: O2SAT 97
[2017-04-17] MEDS: HEPARIN SOD 5000 UNIT/0.5 ML CARP SQ SCH (08:50)
[2017-04-17] MEDS ORDERED: ERGO500011 PO (10:42)
--- NOTE | 2017-04-17 10:51 | Discharge Summary ---
Discharge Summary Date of Service Apr 17, 2017. Discharge Summary Admission Date: Apr 14, 2017 at 07:59 Discharge Date: Apr 17, 2017 Discharge Disposition: Home with services Principal Diagnosis: nausea and vomiting-resolved abdominal pain-resolved Sick sinus syndrome s.p pacemaker in 2014 CAD HTN DMII COPD Chronic diastolic heart failure Leukocytosis vitamin D insuficiency Ambulatory dysfunction Multiple falls at home Procedures: Pacemaker interrogation-04/17 Vaccinations: None. Consultations: None. Pending Studies/Follow-Up: see instructions below. Medication Reconciliation New Medications: Ergocalciferol (Vitamin D 21754 Unit) 50,000 Unit Cap 14740 INTERUNIT PO Q7D@1800 for 90 Days, #12 CAP Take one pill weekly for 12 weeks. Continued Medications: Amlodipine (Norvasc) 5 Mg Tab 5 MG PO QAM Aspirin (Aspirin Ec) 81 Mg Tab 81 MG PO QAM Atorvastatin (Lipitor) 10 Mg Tab 10 MG PO DAILY, TAB B-Complex Vitamins (Vitamin B Complex) 1 Tab Tab 1 TAB PO 1200 Budesonide/Formoterol Fumarate (Symbicort 160/4.5 Inhaler ) Aero 2 PUFFS INH BID PRN for Shortness of Breath, INHALER Cyanocobalamin (Vitamin B-12) 1,000 Mcg Tab 1000 MCG PO NOON, TAB Losartan Potassium (Cozaar) 25 Mg Tab 25 MG PO DAILY@1200 Magnesium (Magnesium) 200 Mg Tab 200 MG PO HS Metformin Hcl (Glucophage) 1,000 Mg Tab 1000 MG PO BID Metoprolol Succinate (Metoprolol Succinate ER) 25 Mg Tabcr 37.5 MG PO BID Nitroglycerin (Nitrostat) 0.4 Mg Tab 0.4 MG UT PRN Omeprazole (Prilosec) 20 Mg Capcr 20 MG PO QPM Primidone (Mysoline) 50 Mg Tab 25 MG PO BID Terazosin HCl (Terazosin HCl) 5 Mg Cap 5 MG PO HS Admission Information HPI (per Admitting provider): This is a 87yo M with a PMH of Tachybrady syndrome s/p PM in 2014, HTN, diastolic HF, CAD, HLD and asthma in COPD who presents with nausea/vomiting that began at 4am today. Patient was in a normal state of health last evening when he went out to dinner with family to celebrate his birthday. Per family, patient ate a large rare steak. Woke up early this morning with burning lower abdominal pain with some radiation to his chest. Had associated nausea, sweating , dizziness chills. Vomited food contents multiple times. Denies hematemesis. Came to ER by EMS for further evaluation. Abdominal pain has decreased and radiation of pain to chest has resolved. Patient still nauseous with episodes of vomiting since arrival. Still complaining of feeling as though the room is spinning. States that he has chronic bouts of constipation but had one hard bowel movement this morning [employer]. Pain medication and zofran have helped improve symptoms. In ER, was thought to be in A Fib at 90bpm on EKG but cardiology confirmed rhythm as normal sinus with PACs. Endorses palpitations and fatigue. 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 Denies any problems since then, and recently had a follow-up with his manager pharmaceutical, Dr. Molina. Denies any fever, chills, headache, visual changes, CP, SOB, diarrhea, LE swelling. Physical Exam (per Admitting): General Appearance: no apparent distress, + mild distress (Pale, sweating, ill appearing) Head: normocephalic, atraumatic Eyes: normal inspection, PERRL, sclerae normal ENT: normal ENT inspection, hearing grossly normal, pharynx normal (Dry mucous membranes ) Neck: supple, thyroid normal, no JVD, trachea midline Respiratory/Chest: chest non-tender, lungs clear, normal breath sounds, no respiratory distress, no accessory muscle use Cardiovascular: normal peripheral pulses, + irregularly irregular Abdomen/GI: soft (Distended but soft ), + tenderness (LLQ tenderness ), + pertinent finding (Hypoactive bowel sounds) Back: normal inspection Extremities/Musculoskelatal: normal inspection, no calf tenderness, no pedal edema Neurologic/Psych: no motor/sensory deficits, alert, normal mood/affect, oriented x 3 Skin: normal color, warm/dry, no rash Hospital Course 87 yoM presents with intractable nausea and vomiting which resolved within 24 hours with scheduled Zofran and a phenergan suppository. He had eaten a large meal the night before for his birthday and was unable to sleep following this. 1. Nausea and vomiting-resolved. Will change Zofran back to PRN. IVF were stopped. Electrolytes were replaced. 2. Abdominal pain -resolved. Was likely 2/2 constipation with an improvement with pain and abdominal distention after MOM enema yesterday. 3. Bloating-poss related to system adjusting to food after significant vomiting from acute GI illness. Bowel sounds are present, no acute abdominal pain present and no distention on exam. No imaging at this point but will consider KUB if symptoms worsen. 3. Sick sinus syndrome s/p pacemaker in 2015. Interrogation performed and no atrial fibrillation was present. Atrial fibrillation seen on initial EKG was not considered to be afib per Cardiology. Cont metoprolol 4. CAD-had some chest pain prior to arrival, however, this resolved and has not returned. Workup including serial cardiac enzymes was negative. PM interrogation as above. Suspect patient had heartburn after his birthday dinner while lying flat with insomnia overnight. Cont ASA 81 and statin for medical management of known CAD. 5. HTN-still elevated. Will consider increasing losartan to 100mg daily. Was increased to 50mg yesterday so it is still early to see full response. Hydralazine PRN. 6. DMII-controlled on ISS/glargine with carb coverage. 7. COPD-not on home oxygen, stable. Cont home inhalers. 8. Chronic diastolic heart failure-compensated. 9. Leukocytosis-likely stress response, resolved. 10. vitamin D insufficiency-replacing with ergocalciferol x 12 weeks. 11. Multiple falls at home-patient reported this to me. vit D replacement as above. PT/OT evaluation pending. I discussed with his the importance of removing obstacles such as runner rugs in the home and encouraged her to bring this up at the PCP follow-up appointment. She verbalized understanding with intent to comply. On day of discharge he was tolerating PO and abdominal exam was unremarkable aside from some chronic LLQ pain that was at his baseline. Abdomen was soft and non-distended with bowel sounds present. He was tolerating PO, mentating and ambulating at baseline. PT/OT had evaluated him and recommended it was safe to send him home. He was prescribed a walker at discharge for assistance with walking at home. He was afebrile and hemodynamically stable and had moved his bowels daily. He was sent home in good condition with close PCP follow-up. Total time spent on discharge = 60 minutes This includes examination of the patient, discharge planning, medication reconciliation, and communication with other providers. Discharge Instructions [facility] [address] [place] [address] Discharge Medical Patient Name: Lucas Torrez Unit Number: [id number] Date of : 1930 Patient Status: Admitted Inpatient Attending Doctor: Rosalia Miller DO DI: Medical v4 Discharge Instructions Date of Service Apr 17, 2017. Admission Reason for Admission: Intractable Vomiting Discharge Discharge Diagnosis / Problem: Nausea and vomiting-resolved. Discharge Goals Goal(s): Prevent Disease Progression Activity Recommendations Activity Limitations: per Instructions/Follow-up section . Instructions / Follow-Up Instructions / Follow-Up Please take all medications as instructed. You have been placed on ERGOCALCIFEROL which is a vitamin D replacement to be take once weekly for 12 weeks. I recommend Home Health for Physical and Occupational therapy as you transition home with your history of falls. You were also provided with a prescription for a walker. Please continue to discuss the fall frequency with your primary care physician who may be able to provide more resources. You have a follow-up appointment with Dr. Limon for 04/24 @ 11:00 for follow- up from this hospitalization. It was a pleasure taking care of you! Call if you have any questions or problems. You can reach a [facility] hospitalist on duty at [facility] 24 hours a day by calling [phone]. Take care of yourself. Rosalia Miller DO [facility] Hospitalist Current Hospital Diet Patient's current hospital diet: Diabetes Type 2 Diet Discharge Diet Recommended Diet: Diabetes Type 2 Diet Procedures Procedures Performed: pacemaker interrogation-04/17 Pending Studies Studies pending at discharge: no Laboratory Results Hemoglobin A1c Test 04/15/17 06:47 Range/Units Estimated Average Glucose 151 mg/dl Hemoglobin A1c 6.9 H 4.5-5.6 % Medical Emergencies . Who to Call and When: Medical Emergencies: If at any time you feel your situation is an emergency, please call 911 immediately. . Non-Emergent Contact Non-Emergency issues call your: Primary Care Provider . . "Provider Documentation" section prepared by Rosalia Miller. . VTE Core Measure Inpt VTE Proph given/why not?: Unfractionated heparin SQ Additional Copies To Gisel Limon,DO
[2017-04-17 11:09] VITALS: BP 156/78; PULSE 57; TEMP 36.5; O2SAT 97
== END 2017-04-17 12:28 | disposition home or self-care (01) | DRG 392 ==
LOC: EDBD 05:11 → C.EDB 05:12 → C.MED 07:59 → ENRESERV 08:44
PROVIDERS: ADMIT Hospitalist; ATTEND Hospitalist
DX: A08.4 Viral intestinal infection, unspecified (principal); I50.32 Chronic diastolic (congestive) heart failure; I49.5 Sick sinus syndrome; E11.65 Type 2 diabetes mellitus with hyperglycemia; J45.909 Unspecified asthma, uncomplicated; K21.9 Gastro-esophageal reflux disease without esophagitis; I11.0 Hypertensive heart disease with heart failure; I25.2 Old myocardial infarction; J44.9 Chronic obstructive pulmonary disease, unspecified; I25.10 Atherosclerotic heart disease of native coronary artery without angina pectoris; K59.00 Constipation, unspecified; Z79.82 Long term (current) use of aspirin; Z79.84 Long term (current) use of oral hypoglycemic drugs; Z79.899 Other long term (current) drug therapy; Z95.0 Presence of cardiac pacemaker; Z86.73 Personal history of transient ischemic attack (TIA), and cerebral infarction without residual deficits; Z87.891 Personal history of nicotine dependence; Z83.3 Family history of diabetes mellitus

== ENCOUNTER → 2017-05-01 | Day surgery (SDC) | payer OTHER ==
[2017-04-18 13:40] VITALS: Ht 162.6 cm; Wt 65.0 kg
[~2017-05-01] VITALS: Ht 162.6 cm; Wt 65.0 kg
[~2017-05-01] MED LIST changes: +500ML BSS 0.3ML EPI 1:1000PF IRRIG ONE; +ACETAMINOPHEN 325 MG TAB PO PRN; +AMVISC PLUS 0.8ML SYRINGE INT OCU ONE; +ATOR10TA82 PO; +ATROPINE SULFATE 0.1 MG/ML 5ML SYR IV PRN; +BRIMONIDINE TART 0.2% OP SOLN PER DROP CHARGE ONE; +BSS FLUSH ONE; +ENDOCOAT 0.85ML SYRINGE INT OCU ONE; +ERGO500011 PO; +EpHEDrine SULFATE INJ 50 MG/ML AMP IV PRN; +EpINEphrine INJ 1MG/ML AMP 1 MG/ML AMP ONE; +FENTANYL CITRATE INJ 50 MCG/1 ML 2 ML VIAL IV PRN; +FLUMAZENIL 0.1 MG/1 ML 10 ML VIAL IV PRN; +HYDROmorphone INJ 2 MG/ML SYR/VIAL IV PRN; +LABETALOL HCL IV 5 MG/ML 20ML IV PRN; +LACTATED RINGER'S 1000ML 500 ML IV SCH; +LIDOCAINE 4% OP SOLN DROP CHARGE ONE; +LIDOCAINE 4% OP SOLN DROP CHARGE OPR SCH; +LIDOCAINE HCL 1% MPF 2 ML VIAL ONE; +MAGN200T3 PO; -MAGN500C PO; +MEPERIDINE HCL 25 MG/ML CARP IV PRN; +MIDAZOLAM HCL 1 MG/ML 2ML VIAL ONE; +MIX: 3ML BSS AND 1ML EPI(PF) TOP ONE; +MOXIFLOXACIN OPH SOLN PER DROP CHARGE ONE; +NALOXONE HCL 0.4 MG/1 ML VIAL/CARP IV PRN; +ONDANSETRON INJ 2 MG/ML 2 ML VIAL IV PRN; +PHENYLEPHRINE 100MCG/ML 5ML SYR IV PRN; +POVIDONE-IODINE OP SOLN 30 ML BTL ONE; +PROPARACAINE 0.5% OP SOLN PER DROP CHARGE OPR SCH; -SIMV20TA2 PO; +TOBRAMYCIN/DEXAMETHASONE OPH OINT PER APPLN CHARGE ONE; +VISCOAT 0.5ML SYRINGE INT OCU ONE
[2017-05-01] MEDS: PHENYLEPHRINE HCL 2.5% OP SOLN PER DROP CHARGE OPR SCH ×2 (06:50→06:57)
[2017-05-01] MEDS: TROPICAMIDE 1% OP SOLN PER DROP CHARGE OPR SCH ×2 (06:51→06:58)
[2017-05-01] MEDS: CYCLOPENTOLATE HCL 1% OP SOLN PER DROP CHARGE OPR SCH ×2 (06:52→06:59)
[2017-05-01] MEDS: KETOROLAC 0.5% OP SOLN PER DROP CHARGE OPR SCH ×2 (06:54→07:00)
[2017-05-01] MEDS: MOXIFLOXACIN OPH SOLN PER DROP CHARGE OPR SCH ×2 (06:55→07:01)
--- NOTE | 2017-05-01 07:06 | History & Physical Bridge - SC ---
H&P Re-Evaluation Bridge Note: I have examined the patient, reviewed the History & Physical and in the interval since the performance of the History & Physical I have noted the following changes of clinical significance: No changes noted
--- NOTE | 2017-05-01 08:04 | Discharge Instructions-SurgCtr ---
Discharge Instructions Date of Service May 01, 2017. Visit Reason for Visit: Cataract Right Eye Discharge Discharge Diagnosis / Problem: cataract right eye Discharge Goals Goal(s): Improve function Medications Stopped Medications Name(s): Stopped Metformin 04/28/17 Activity Recommendations Activity Limitations: per Instructions/Follow-up section Lifting Limitations: no more than 5 pounds Anesthesia . Post Anesthesia Instructions: If you have had General Anesthesia or IV Sedation: * Do not drive today. * Resume driving when surgeon permits. * Do not make important decisions or sign legal documents today. * Call surgeon for: 1. Temperature elevations greater than 101 degrees F. 2. Uncontrollable pain. 3. Excessive bleeding. 4. Persistent nausea and vomiting. 5. Medication intolerance (nausea, vomiting or rash). * For nausea and vomiting use only clear liquids such as: tea, soda, bouillon until nausea subsides, then gradually increase diet as tolerated. * If you have any concerns or questions, call your surgeon's office. If physician is unavailable and it is an emergency, call 911 or go to the nearest emergency room. . Instructions / Follow-Up Instructions / Follow-Up ACTIVITY RECOMMENDATIONS: * Light activities * You may walk outside, read, watch television. * Mild irritation and blurred vision are common for the first few days, redness around the white part of the eye is common. MEDICATIONS: Resume previous medications unless instructed otherwise by your surgeon. Eye drops (today and tomorrow): Gatifloxacin - one drop in operative eye every 2 hours while awake Prednisolone 1% - one drop in operative eye every 2 hours while awake Ilevro - one drop operative eye 1 times daily SPECIAL CARE INSTRUCTIONS: * If any problems or concerns, please call Dr. Zepeda's office at . * Keep plastic shield taped over eye to sleep at night. * Keep plastic shield taped over eye except to administer eye drops. * Keep plastic shield on until office visit the following day. FOLLOW UP VISIT: Follow-up with Dr. Zepeda in the [place] office as scheduled. If not already scheduled, please call the office at . Diet Recommendations Home Diet: resume previous diet Procedures Procedures Performed: Right Eye Cataract Phacoemulsification With Intraocular Lens Implant Pending Studies Studies pending at discharge: no Medical Emergencies . Who to Call and When: Medical Emergencies: If at any time you feel your situation is an emergency, please call 911 immediately. . Non-Emergent Contact Non-Emergency issues call your: [facility] . . "Provider Documentation" section prepared by Demario Zepeda. .
[2017-05-01 08:06] VITALS: TEMP 36.2
--- NOTE | 2017-05-01 08:06 | [facility] Operative Report ---
Operative Report Operative Date May 01, 2017. Pre-Operative Diagnosis Right Eye Cataract Post-Operative Diagnosis Same Procedure(s) Performed Right Eye Cataract Phacoemulsification With Intraocular Lens Implant Surgeon Dr. Zepeda Veneer Jointer Offbearer Surgeon(s) None Estimated Blood Loss None Findings cataract right eye Fluids (cc crystalloids) see anesthesia record Specimens None Drains none Anesthesia local with sedation Complication(s) None Disposition Recovery Room / PACU Implants [id number] 23.0 Indications decreased vision right eye Description of Procedure After informed consent was obtained in the holding area the patient was wheeled back to the operating room where cardiac monitoring leads and oxygen by nasal cannula was administered by Anesthesia. Gentle IV sedation was given, and the patient's right eye was prepped and draped in usual sterile fashion. A wire lid speculum was placed into the right eye and the operating microscope was swung into position. Using 0.12 forceps and a Supersharp blade a paracentesis port was made 2 o'clock hours away from the 9 o'clock position of the patient's right eye. 1% non-preserved Lidocaine was then injected into the anterior chamber for anesthesia. A mixture of 1ml non preserved epinephrine in 3ml of BSS was injected to aid with pupillary dilation. A 2.0 mm keratotome blade was then used to make a shelved clear corneal incision at the 9 o'clock position of the right eye. Amvisc was injected into the anterior chamber and a cystotome and Utrata forceps were used to perform a curvilinear capsulorrhexis. BSS on a hydrodissection cannula was used to hydrodissect the lens nucleus away from the capsular bag. The phacoemulsification handpiece was then used in a stop and chop fashion to remove the lens nucleus. The irrigation and aspiration handpiece was then used to remove the residual cortical material. Amvisc was injected into the capsular bag and anterior chamber and a [employer]ch [employer] Lomb MX60 23.0 Diopter intraocular lens was injected into the capsular bag. Irrigation and aspiration handpiece was used to remove the residual viscoelastic material. The wounds were hydrated and noted to be watertight. The wire lid speculum was removed from the eye. Vigamox, Brimonidine, and TobraDex ointment were placed on the eye and it was shielded. It should be noted that EndoCoat was used extensively during the case to protect the cornea endothelium. DISPOSITION: The patient tolerated the procedure well and was wheeled to the post anesthesia care unit in stable condition. I attest to the content of the Intraoperative Record and any orders documented therein. Any exceptions are noted below. I attest to the content of the Intraoperative Record and any orders documented therein. Any exceptions are noted below.
[2017-05-01 08:32] VITALS: BP 161/77; PULSE 66; O2SAT 99
--- NOTE | 2017-05-01 08:32 | Anesthesia Progress Nt - [facility] ---
Anesthesia Post Op Note Date & Time May 01, 2017 at 08:32 Vital Signs Pain Intensity: 0 Vital Signs Past 12 Hours Date Time Temp Pulse Resp B/P (MAP) Pulse Ox O2 Delivery O2 Flow Rate FiO2 05/01/17 08:06 36.2 62 18 163/76 (105) 97 Room Air 05/01/17 06:37 36.3 67 18 145/79 (101) 100 Room Air Notes Mental Status: alert / awake / arousable, participated in evaluation Pt Amnestic to Procedure: Yes Nausea / Vomiting: adequately controlled Pain: adequately controlled Airway Patency, RR, SpO2: stable & adequate BP & HR: stable & adequate Hydration State: stable & adequate Anesthetic Complications: no major complications apparent
== END | disposition home or self-care (01) ==
LOC: X.SURG 06:22
PROVIDERS: ATTEND Ophthalmology
DX: H25.11 Age-related nuclear cataract, right eye (principal); I10 Essential (primary) hypertension; E11.36 Type 2 diabetes mellitus with diabetic cataract; J45.909 Unspecified asthma, uncomplicated; Z79.82 Long term (current) use of aspirin; Z79.84 Long term (current) use of oral hypoglycemic drugs; Z79.899 Other long term (current) drug therapy

== ENCOUNTER → 2018-01-15 | Outpatient (CLI) | payer OTHER ==
[~2018-01-15] MED LIST changes: -500ML BSS 0.3ML EPI 1:1000PF IRRIG ONE; -ACETAMINOPHEN 325 MG TAB PO PRN; -AMLO-110 PO; +AMLO5TAB3 PO; -AMVISC PLUS 0.8ML SYRINGE INT OCU ONE; -ATROPINE SULFATE 0.1 MG/ML 5ML SYR IV PRN; -BRIMONIDINE TART 0.2% OP SOLN PER DROP CHARGE ONE; -BSS FLUSH ONE; -ENDOCOAT 0.85ML SYRINGE INT OCU ONE; -EpHEDrine SULFATE INJ 50 MG/ML AMP IV PRN; -EpINEphrine INJ 1MG/ML AMP 1 MG/ML AMP ONE; -FENTANYL CITRATE INJ 50 MCG/1 ML 2 ML VIAL IV PRN; -FLUMAZENIL 0.1 MG/1 ML 10 ML VIAL IV PRN; -HYDROmorphone INJ 2 MG/ML SYR/VIAL IV PRN; -LABETALOL HCL IV 5 MG/ML 20ML IV PRN; -LACTATED RINGER'S 1000ML 500 ML IV SCH; -LIDOCAINE 4% OP SOLN DROP CHARGE ONE; -LIDOCAINE 4% OP SOLN DROP CHARGE OPR SCH; -LIDOCAINE HCL 1% MPF 2 ML VIAL ONE; -MEPERIDINE HCL 25 MG/ML CARP IV PRN; -MIDAZOLAM HCL 1 MG/ML 2ML VIAL ONE; -MIX: 3ML BSS AND 1ML EPI(PF) TOP ONE; -MOXIFLOXACIN OPH SOLN PER DROP CHARGE ONE; -NALOXONE HCL 0.4 MG/1 ML VIAL/CARP IV PRN; -ONDANSETRON INJ 2 MG/ML 2 ML VIAL IV PRN; -PHENYLEPHRINE 100MCG/ML 5ML SYR IV PRN; -POVIDONE-IODINE OP SOLN 30 ML BTL ONE; -PROPARACAINE 0.5% OP SOLN PER DROP CHARGE OPR SCH; +TERA2CAP PO; -TOBRAMYCIN/DEXAMETHASONE OPH OINT PER APPLN CHARGE ONE; -VISCOAT 0.5ML SYRINGE INT OCU ONE; -[UNRECOGNIZED DRUG - CODE] PO
--- NOTE | 2018-01-15 12:31 | DIAGNOSTIC IMAGING REPORT ---
THORACIC SPINE WITHOUT HISTORY: 87 years-old Male ORDER IN chronic mid thoracic spine and low back pain with history of multiple falls. COMPARISON: Cervical spine MRI of same day, lumbar spine MRI 10/26/2017, CT abdomen and pelvis 04/14/2017 TECHNIQUE: Multiplanar multisequence MRI of the thoracic spine was obtained without the use of IV contrast. FINDINGS: The large [id number] animal science instructor localizer images demonstrate no gross abnormality. T2 hyperintense lesions about the bilateral kidneys measuring up to 1.3 cm on the left suggest renal cysts. Mild nonspecific bilateral perinephric stranding. Partially imaged 2.7 x 2.8 cm lesion about the interpolar left kidney with layering T2 hypointense material suggests probable complex renal cyst. Heterogeneously demineralized appearance of the bones. There is no acute fracture, subluxation or focal bone marrow edema. No acute compression deformity. There is multilevel intervertebral disc space narrowing with spondylitic spurring, annular disc bulging and facet arthrosis. Retrolisthesis C3 on C4 with disc osteophyte complex relation is better characterized described on comparison MRI cervical spine of same day. There is mild central canal stenosis at T10-T11. Moderate severe multilevel facet arthropathy, most pronounced within the lower thoracic spine and imaged cervical spine. There is multilevel foraminal narrowing. At T9-T10 there is and moderate bilateral foraminal narrowing. At T10-T11 there is moderate right and moderate to severe left foraminal stenosis. At T11-T12 there is moderate left with no right foraminal narrowing. At T12-L1 there is moderate to severe left and mild right foraminal narrowing. IMPRESSION: 1. No acute fracture or subluxation. 2. Multilevel intervertebral disc space narrowing with spondylitic spurring, annular disc bulging and facet arthrosis. 3. Mild central canal narrowing at T10-T11 with multilevel foraminal stenosis as detailed above. The above report was generated using voice recognition software. It may contain grammatical, syntax or spelling errors. Electronically signed by: Sd Mireles M.D. 01/15/2018 12:30 PM Dictated Date/Time: 01/15/2018 12:09 PM
--- NOTE | 2018-01-15 12:53 | DIAGNOSTIC IMAGING REPORT ---
MRI OF THE CERVICAL SPINE WITHOUT IV CONTRAST CLINICAL HISTORY: Neck pain. History of multiple falls. COMPARISON STUDY: No priors. TECHNIQUE: MRI of the cervical spine is performed utilizing various T1 and T2 sequences in the axial and sagittal planes. IV contrast was not administered for this examination. Examination is modestly degraded by motion artifact. FINDINGS: Cervical spine: Marrow signal intensity is heterogeneous. Vertebral body height is maintained throughout the cervical spine. There is grade 1 retrolisthesis at C3-C4 and C4-C5. Alignment is otherwise maintained. There is straightening of the cervical lordosis with reversal centered at C3-C4. The atlantodental articulation appears maintained. The spinous processes appear intact. Large anterior osteophytes are seen throughout. There is no marrow edema or evidence of fracture. Intervertebral discs: There is degenerative disc desiccation seen throughout the cervical spine. There is nearly complete loss of the disc spaces with partial bony fusion seen at C3-C4 and C4-C5. Moderate disc space narrowing is seen at C5-C6 and C6-C7. Spinal cord: The cervical spinal cord is normal in morphology and signal intensity. C2-C3: Uncovertebral and facet arthropathy cause moderate left neural foraminal stenosis. The central canal is clear. C3-C4: A posterior disc osteophyte complex effaces the ventral subarachnoid space. Uncovertebral and facet arthropathy cause severe left greater than right neural foraminal stenosis. C4-C5: Uncovertebral and facet arthropathy cause severe right and moderate to severe left neural foraminal stenosis. C5-C6: A posterior disc osteophyte complex effaces the right aspect of the ventral subarachnoid space. Uncovertebral and facet arthropathy cause severe bilateral neural foraminal stenosis. C6-C7: Uncovertebral and facet arthropathy cause severe right and moderate left neural foraminal stenosis. C7-T1: Facet arthropathy is of no consequence. The central canal and neural foramina are patent. Soft tissues: The prevertebral and paraspinous soft tissues are normal as imaged. Brain parenchyma: The visualized brain parenchyma at the skull base is grossly unremarkable. IMPRESSION: 1. No acute osseous abnormality is identified. 2. The cervical spinal cord is normal in morphology and signal intensity. 3. Moderate to advanced multilevel cervical spondylosis as detailed above. See discussion for detailed level by level analysis. Dictated: 01/15/2018 12:03 PM Transcribed: 01/15/2018 12:53 PM [facility] Electronically signed by: Rafal Colon M.D. 01/15/2018 1:20 PM Dictated Date/Time: 01/15/2018 12:03 PM
== END | disposition home or self-care (01) ==
LOC: C.MRI 09:38
PROVIDERS: ATTEND Family Medicine
DX: M47.12 Other spondylosis with myelopathy, cervical region (principal); M46.02 Spinal enthesopathy, cervical region; M48.04 Spinal stenosis, thoracic region; M47.814 Spondylosis without myelopathy or radiculopathy, thoracic region

== ENCOUNTER 2019-05-07 17:25 | Inpatient (IN) ==
[2019-05-07 18:03] LABS: Hematocrit (blood only) 33.2 % (42-52); Hemoglobin 11.7 g/dL (14.0-18.0); Mean Corpuscular Hemoglobin 35.5 pg (25-34); Mean Corpuscular Hgb Conc 35.2 g/dL (32-36); Mean Corpuscular Volume 100.6 fL (80-100); Mean Platelet Volume 10.1 fL (7.4-10.4); Nucleated RBC # (auto) 0.05 K/uL (0-0); Nucleated RBC % (auto) 0.2 %; Platelet Count 329 K/uL (130-400); RDW Coefficient of Variation 17.9 % (11.5-14.5); RDW Standard Deviation 65.9 fL (36.4-46.3); White Blood Count 24.77 K/uL (4.8-10.8)
--- NOTE | 2019-05-07 18:05 | XRay Report ---
XR chest 1V portable CLINICAL HISTORY: cp dyspnea COMPARISON STUDY: 11/25/2017 FINDINGS: Poorly defined parenchymal infiltrate left base. Lungs otherwise are clear. Postoperative c hanges including pacemaker and bilateral shoulder arthroplasties are present. IMPRESSION: Infiltrate left base. The above report was generated using voice recognition software. It may contain grammatical, syntax or spelling errors. Electronically signed by: Sanjay Mtz M.D. 05/07/2019 6:04 PM
[2019-05-07 18:27] LABS: Alanine Aminotransferase 25 U/L (12-78); Albumin Level 3.4 gm/dl (3.4-5.0); Aspartate Aminotransferase 9 U/L (15-37); BUN Creatinine Ratio 22.6 (10-20); Blood Urea Nitrogen 36 mg/dl (7-18); Calcium 8.7 mg/dl (8.5-10.1); Carbon Dioxide 20 mmol/L (21-32); Chloride 104 mmol/L (98-107); Creatinine Clr Calc Pharmacy 26.6 ml/min; Est GFR (African American) 43.6; Est GFR (Non-African American) 37.6; Glucose 281 mg/dl (70-99); Lipase 147 U/L (73-393); Potassium 4.2 mmol/L (3.5-5.1); Sodium 135 mmol/L (136-145)
[2019-05-07 18:31] LABS: Basophils # (auto) 0.02 K/uL (0-0.2); Basophils % (auto) 0.1 %; Echinocytes 1+; Eosinophils # (auto) 0.01 K/uL (0-0.5); Immature Granulocytes # (auto) 0.08 K/uL (0.00-0.02); Immature Granulocytes % (auto) 0.3 %; Lymphocytes # (auto) 0.47 K/uL (1.2-3.4); Lymphocytes % (auto) 1.9 %; Monocytes # (auto) 0.87 K/uL (0.11-0.59); Monocytes % (auto) 3.5 %; Neutrophils # (auto) 23.32 K/uL (1.4-6.5); Neutrophils % (auto) 94.2 %
[2019-05-07 18:32] LABS: Alkaline Phosphatase 47 U/L (45-117); Bilirubin,Total 0.5 mg/dl (0.2-1); Globulin 3.5 gm/dl (2.5-4.0); Total Protein 6.9 gm/dl (6.4-8.2); Troponin I < 0.015 ng/ml (0-0.045)
[2019-05-07] MEDS ORDERED: IOVERSOL 100ml IV PRN (19:09)
--- NOTE | 2019-05-07 19:19 | CT Scan Report ---
CT abd pelvis IV con only CT DOSE: 347.84 mGy.cm HISTORY: Pain abd TECHNIQUE: Multiaxial CT images of the abdomen and pelvis were performed following the use of intrave nous contrast. A dose lowering technique was utilized adhering to the principles of ALARA. COMPARISON STUDY: 04/14/2017 FINDINGS: Progressive infiltrate left lower lobe compared to the prior exam. Minimal dependent right basilar atelectatic change. Fatty replacement of the liver. Spleen and pancreas are unremarkable. There is a small 5 mm pancreati c tail cyst unchanged from the prior exam. This most likely represents a high p.m. and. No additional parenchymal abnormality is identified. There is a small diverticulum of third portion of duodenal sw eep. Bowel pattern is nonobstructive. Nonspecific proximal left upper to mid abdominal enteritis. No evide nce for abscess collection or obstruction. Chronic sigmoid diverticulosis. No evidence for acute diverticulitis. No evidence for abscess collection or obstruction. Several renal cysts stable compared to the prior exam. IMPRESSION: 1. Chronic sigmoid and colonic diverticulosis. 2. Hyperemia and mild wall thickening of several left mid to left upper quadrant small bowel loops. T his is consistent with a nonspecific enteritis. 3. Fatty replacement of liver. 4. Left lower lobe infiltrate with a minimal infiltrate right lung base. The above report was generated using voice recognition software. It may contain grammatical, syntax or spelling errors. Electronically signed by: Sanjay Mtz M.D. 05/07/2019 7:18 PM
[2019-05-07] MEDS ORDERED: PIPERACILLIN/TAZOBACTAM 4.5 GM/120 ML BAG IV ONE (19:21)
[2019-05-07] MEDS ORDERED: PIPERACILL/TAZOBAC CONSULT ACTIVE PRN (19:21)
[2019-05-07] MEDS ORDERED: LEVOFLOXACIN/D5W 500 MG/100 ML BAG IV STA (19:21)
[2019-05-07] MEDS ORDERED: SODIUM CHLORIDE 0.9% 1000ML 1,000 ML IV ONE ×2 (19:25→20:14)
[2019-05-07] MEDS ORDERED: ONDANSETRON INJ 2 MG/ML 2 ML VIAL IV STA (19:25)
[2019-05-07] MEDS ORDERED: METOPROLOL TARTRATE 1 MG/ML VIAL IV STA (19:52)
--- NOTE | 2019-05-07 20:27 | History & Physical Report ---
Date of Service May 07, 2019 Assessment & Plan (1) Severe sepsis: SIRS plus ARF plus lactic acidosis secondary to aspiration pneumonia Hemoptysis secondary to above Hemoglobin stable at baseline chronic diastolic heart failure (EF 60 to 65%, TTE 2014), patient clinically dry SSS sp PPM, patient NSR CAD as per records hypertension, BP elevated History PE status post Coumadin DM2 on oral medications, reasonable control as of recent outpatient hemoglobin A1c of 7.26 February 2019 past tobacco abuse Medical telemetry Cultures, Unasyn Aspiration precautions IVF, follow lactic acid Solu-Medrol 1 dose for hemoptysis symptoms Nebs RTC given bronchospasm Pulmonary consult if with worsening hemoptysis Hold antiplatelet Rx for now given hemoptysis, trend H&H, transfuse PRBC if hemoglobin less than 8 and/or for symptomatic anemia Basal insulin, ISS BG goal [id number], carb count coverage DVT prophylaxis. SCDs RE hemoptysis Full code History of Present Illness Chief Complaint: Abdominal pain, nausea, vomiting, cough Primary Care Provider: Gisel Limon, DO History obtained from patient, family, and records. Medical history significant for chronic diastolic heart failure (EF 60 to 65%, TTE 2014), SSS sp PPM, CAD as per records, hypertension, hyperlipidemia, COPD as per records, history PE status post Coumadin, essential tremors on primidone Rx, DM 2 on oral medications, chronic anemia (baseline hemoglobin 11-12), past tobacco abuse. Recent confinement March 2017 for intractable nausea, emesis symptoms. Today patient had sudden onset achy epigastric pain, nausea, emesis symptoms with good bowel movement. Subsequently noted junky cough symptoms followed by hemoptysis episode. No chest pain. Some shortness of breath noted. At the ER, patient received Zosyn for pneumonia. Medical History as above Surgical History : Carpal tunnel surgery, eardrum surgery, PPM, shoulder surgery, neck surgery, hernia repair Family History : Colon cancer, diabetes, heart disease Personal/Social history : Past tobacco abuse, no EtOH intake, retired [employer], [employer] Allergies Allergy/AdvReac Type Severity Reaction Status Date / Time lisinopril Allergy Unknown HIVES Verified 05/07/19 18:08 Home Medications Home Medications Medication Instructions Recorded Confirmed Type amlodipine 5 mg PO DAILY 05/07/19 05/07/19 History aspirin 81 mg PO DAILY 05/07/19 05/07/19 History atorvastatin 10 mg PO DAILY 05/07/19 05/07/19 History budesonide-formoterol [Symbicort] 2 puff INHALATION BID PRN 05/07/19 05/07/19 History cyanocobalamin (vitamin B-12) 1,000 mcg PO DAILY@1200 05/07/19 05/07/19 History ergocalciferol (vitamin D2) 50,000 unit PO Q7D@1800 05/07/19 05/07/19 History [Vitamin D2] losartan 100 mg PO DAILY@1200 05/07/19 05/07/19 History magnesium 200 mg PO HS 05/07/19 05/07/19 History metformin 1,000 mg PO BID 05/07/19 05/07/19 History metoprolol succinate 25 mg PO BID 05/07/19 05/07/19 History omeprazole 20 mg PO QPM 05/07/19 05/07/19 History primidone 25 mg PO BID 05/07/19 05/07/19 History terazosin 5 mg PO HS 05/07/19 05/07/19 History vitamin B complex 1 tab PO DAILY@1200 05/07/19 05/07/19 History Past Med/Surg History Medical History GERD (gastroesophageal reflux disease) (Chronic) HTN (hypertension) (Chronic) Social History Preferred Language: Bhutanese Communication Ability: Effective Concrete Hopper Operator Required: No Beliefs That Will Affect Care: None Current Living Situation: Spouse Feels Safe at Home: Yes Smoking Status: Former smoker Hx Alcohol Use: No Hx Substance Use: No Review of Systems Review of Systems: As per HPI, all 10 systems reviewed, all other ROS negative Physical Exam Physical Exam: GENERAL: Comfortable, pleasant, slightly hard of hearing, no respiratory distress, obese SKIN: Pallor, warm HEENT: Partial alopecia, pale palpebral conjunctivae, no ptosis, dry buccal mucosa NECK : Supple, short neck, no tenderness CHEST : Decreased breath sounds, occasional no wheezes , no tenderness HEART : RRR, no obvious murmurs ABDOMEN: Some distention, nontender EXTREMITIES : Minimal LE swelling, no LE tenderness, no other conspicuous deformities noted NEUROLOGIC : Coherent, no facial asymmetry, intention tremors, no other gross focality Results & Data Vital Signs (Past 12 Hours) Vital Signs Temp Pulse Pulse Resp BP BP Pulse Ox 05/07/19 19:32 92 H 20 170/75 H 95 05/07/19 17:45 96 05/07/19 17:32 36.7 C 94 H 20 170/79 H 94 Laboratory Results Laboratory Results WBC 24.77 K/uL (4.8-10.8) H 05/07/19 17:40 RBC 3.30 M/uL (4.7-6.1) L 05/07/19 17:40 Hgb 11.7 g/dL (14.0-18.0) L 05/07/19 17:40 Hct 33.2 % (42-52) L 05/07/19 17:40 MCV 100.6 fL (80-100) H 05/07/19 17:40 MCH 35.5 pg (25-34) H 05/07/19 17:40 MCHC 35.2 g/dL (32-36) 05/07/19 17:40 RDW Std Deviation 65.9 fL (36.4-46.3) H 05/07/19 17:40 RDW Coeff of Marlen 17.9 % (11.5-14.5) H 05/07/19 17:40 Plt Count 329 K/uL (130-400) 05/07/19 17:40 MPV 10.1 fL (7.4-10.4) 05/07/19 17:40 Immature Gran % (Auto) 0.3 % 05/07/19 17:40 Neut % (Auto) 94.2 % 05/07/19 17:40 Lymph % (Auto) 1.9 % 05/07/19 17:40 Rock % (Auto) 3.5 % 05/07/19 17:40 Eos % (Auto) 0.0 % 05/07/19 17:40 Baso % (Auto) 0.1 % 05/07/19 17:40 Immature Gran # (Auto) 0.08 K/uL (0.00-0.02) H 05/07/19 17:40 Neut # (Auto) 23.32 K/uL (1.4-6.5) H 05/07/19 17:40 Lymph # (Auto) 0.47 K/uL (1.2-3.4) L 05/07/19 17:40 Rock # (Auto) 0.87 K/uL (0.11-0.59) H 05/07/19 17:40 Eos # (Auto) 0.01 K/uL (0-0.5) 05/07/19 17:40 Baso # (Auto) 0.02 K/uL (0-0.2) 05/07/19 17:40 Absolute Nucleated RBC 0.05 K/uL (0-0) H 05/07/19 17:40 Nucleated RBC % (auto) 0.2 % 05/07/19 17:40 Echinocytes 1+ 05/07/19 17:40 Sodium 135 mmol/L (136-145) L 05/07/19 17:40 Potassium 4.2 mmol/L (3.5-5.1) 05/07/19 17:40 Chloride 104 mmol/L (98-107) 05/07/19 17:40 Carbon Dioxide 20 mmol/L (21-32) L 05/07/19 17:40 Anion Gap 11.0 (3-11) 05/07/19 17:40 BUN 36 mg/dl (7-18) H 05/07/19 17:40 Creatinine 1.61 mg/dl (0.6-1.4) H 05/07/19 17:40 Est Cr Clr Drug Dosing 26.6 ml/min 05/07/19 17:40 Est GFR ( Amer) 43.6 05/07/19 17:40 Est GFR (Non-Af Amer) 37.6 05/07/19 17:40 BUN/Creatinine Ratio 22.6 (10-20) H 05/07/19 17:40 Glucose 281 mg/dl (70-99) H 05/07/19 17:40 Lactate 4.8 mmol/L (0.4-2.0) H* 05/07/19 19:41 Calcium 8.7 mg/dl (8.5-10.1) 05/07/19 17:40 Total Bilirubin 0.5 mg/dl (0.2-1) 05/07/19 17:40 AST 9 U/L (15-37) L 05/07/19 17:40 ALT 25 U/L (12-78) 05/07/19 17:40 Alkaline Phosphatase 47 U/L (45-117) 05/07/19 17:40 Troponin I < 0.015 ng/ml (0-0.045) 05/07/19 17:40 Total Protein 6.9 gm/dl (6.4-8.2) 05/07/19 17:40 Albumin 3.4 gm/dl (3.4-5.0) 05/07/19 17:40 Globulin 3.5 gm/dl (2.5-4.0) 05/07/19 17:40 Albumin/Globulin Ratio 1.0 (0.9-2) 05/07/19 17:40 Lipase 147 U/L (73-393) 05/07/19 17:[address] chest: Left and to a lesser extent right lower lobe parenchymal infiltrates. Study is otherwise negative. CT abdomen pelvis: 1. Chronic sigmoid and colonic diverticulosis. 2. Hyperemia and mild wall thickening of several left mid to left upper quadrant small bowel loops. This is consistent with a nonspecific enteritis. 3. Fatty replacement of liver. 4. Left lower lobe infiltrate with a minimal infiltrate right lung base. EKG as per my interpretation rate 95, NSR, LAD, LAFB, septal infarct
[2019-05-07] MEDS ORDERED: ALBUT/IPRATROP 3MG/0.5MG NEB 3 ML VIAL NEB STA (20:31)
[2019-05-07] MEDS ORDERED: INSULIN GLARGINE SOLOSTAR 100 UNITS/ML 3 ML PEN SC STA ×2 (20:37→23:43)
[2019-05-07 20:47] LABS: Appearance Urine Clear (Clear); Bacteria Urine Automated Negative (Negative); Bilirubin Urine Negative (Negative); Blood Urine Negative (Negative); Color Urine Yellow; Glucose Urine UA 3+ (Negative); Ketones Urine Trace (Negative); Leukocyte Esterase Urine Negative (Negative); Nitrite Urine Negative (Negative); Protein Urine 1+ (Negative); RBC Urine Automated 0-4 /hpf (0-4); Urobilinogen Urine Negative (Negative); WBC Urine Automated 0 /hpf (0-5)
[2019-05-07] MEDS: LACTATED RINGER'S 1,000 ML IV SCH (21:01)
--- NOTE | 2019-05-07 22:44 | CT Scan Report ---
CT chest wo con CT DOSE: 358.74 mGy.cm HISTORY: Dyspnea hemoptysis TECHNIQUE: Multiaxial CT images of the chest were performed without contrast. A dose lowering techni que was utilized adhering to the principles of ALARA. COMPARISON: Chest series 05/07/2019 FINDINGS: Diffuse left lower lobe infiltrate. Smaller infiltrate posterior aspect right lower lobe. M id upper lungs are considered clear. No significant mediastinal or hilar nodes. Cardiac pacemaker in good position. IMPRESSION: Left and to a lesser extent right lower lobe parenchymal infiltrates. Study is otherwise negative. The above report was generated using voice recognition software. It may contain grammatical, syntax or spelling errors. Electronically signed by: Sanjay Mtz M.D. 05/07/2019 10:43 PM
[2019-05-07] MEDS ORDERED: TRAMADOL HCL 50 MG TABLET PO PRN (22:48)
[2019-05-07] MEDS ORDERED: CARBOHYDRATES FOR HYPOGLYCEMIA PO PRN (22:48)
[2019-05-07] MEDS ORDERED: TERAZOSIN HCL 5 MG CAP PO SCH (22:48)
[2019-05-07] MEDS ORDERED: BENZONATATE 100 MG CAPSULE PO PRN (22:48)
[2019-05-07] MEDS ORDERED: HYDROmorphone INJ 0.5 MG/0.5 ML SYR IV PRN (22:48)
[2019-05-07] MEDS ORDERED: GLUCAGON FOR INJ 1 MG VIAL SQ PRN (22:48)
[2019-05-07] MEDS ORDERED: DEXTROSE 50% 50 ML SYRINGE IV PRN (22:48)
[2019-05-07] MEDS ORDERED: GLUCOSE 40% GEL 15 GM TUBE PO PRN (22:48)
[2019-05-07] MEDS ORDERED: PROMETHAZINE HCL 12.5 MG in SODIUM CHLORIDE 0.9% 50 ML IV PRN (22:48)
[2019-05-07] MEDS ORDERED: GLUCOSE 10 TABS/TUBE PO PRN (22:48)
[2019-05-07] MEDS ORDERED: ACETAMINOPHEN 325 MG TAB PO PRN (22:48)
--- NOTE | 2019-05-07 23:12 | Emergency Department Note ---
Entered by Anh Rios acting as a scribe for Cristofer Vega DO History of Present Illness General Chief complaint: Vomiting Stated complaint: CHEST PAIN, VOMITING Source: patient History of Present Illness Provider complaint: abdominal pain Onset (ago): hour(s) 6 Location: abdomen (upper) Radiation: non-radiation Current Pain Intensity: 5 Relieved By: + none Associated symptoms: + chest pain, + nausea/vomiting and + other (+lower back pain, -pain/burning during urination) The patient is a 89 year old male who presents to the Emergency Room with complaints of upper abdominal pain since 1100 today. He notes that after the pain started he had 4-5 episodes of nausea and vomiting. He states that he had occasional episodes of chest pain today as well. Pain starts in the epigastric and goes up into the chest and feels like a burning/bubble. He notes that he has lower back pain. He denies any pain or burning during urination. He notes that his pain is now a 5/10. No other exacerbating or remitting factors. Home Medications Home Medications Medication Instructions Recorded Confirmed Type amlodipine 5 mg PO DAILY 05/07/19 05/07/19 History aspirin 81 mg PO DAILY 05/07/19 05/07/19 History atorvastatin 10 mg PO DAILY 05/07/19 05/07/19 History budesonide-formoterol [Symbicort] 2 puff INHALATION BID PRN 05/07/19 05/07/19 History cyanocobalamin (vitamin B-12) 1,000 mcg PO DAILY@1200 05/07/19 05/07/19 History ergocalciferol (vitamin D2) 50,000 unit PO Q7D@1800 05/07/19 05/07/19 History [Vitamin D2] losartan 100 mg PO DAILY@1200 05/07/19 05/07/19 History magnesium 200 mg PO HS 05/07/19 05/07/19 History metformin 1,000 mg PO BID 05/07/19 05/07/19 History metoprolol succinate 25 mg PO BID 05/07/19 05/07/19 History omeprazole 20 mg PO QPM 05/07/19 05/07/19 History primidone 25 mg PO BID 05/07/19 05/07/19 History terazosin 5 mg PO HS 05/07/19 05/07/19 History vitamin B complex 1 tab PO DAILY@1200 05/07/19 05/07/19 History Allergies Allergy/AdvReac Type Severity Reaction Status Date / Time lisinopril Allergy Unknown HIVES Verified 05/07/19 18:08 Past Med/Surg History Medical History GERD (gastroesophageal reflux disease) (Chronic) HTN (hypertension) (Chronic) Social History Feels Safe at Home: Yes Smoking Status: Former smoker Review of Systems See HPI for pertinent positives & negatives. and A total of 10 systems reviewed and were otherwise negative Physical Exam Vital Signs Vital Signs - 24 hr 05/07/19 17:32 05/07/19 17:45 05/07/19 19:32 Temperature 36.7 C Temperature Source Oral Pulse Rate 94 H Pulse Rate [Apical] 92 H Respiratory Rate 20 20 Respiratory Effort / Characteristics Non-Labored Spontaneous Non-Labored Spontaneous Respiratory Depth Normal Normal Respiratory Pattern Regular Regular Blood Pressure 170/79 H Blood Pressure [Left Arm] 170/75 H Blood Pressure Mean 109 Blood Pressure Mean [Left Arm] 106 Blood Pressure Position Sitting Blood Pressure Position [Left Arm] Sitting Pulse Oximetry 94 96 95 Oxygen Delivery Method Room Air Room Air Room Air Sepsis Recent Fever Within 48 Hours No Sepsis New/Unexplained Change in Mental Status No Sepsis Action Taken by Nursing No Action Required GENERAL: sitting up in bed, chronically ill, disheveled EYE EXAM: normal conjunctiva OROPHARYNX: no exudate, no erythema, lips, buccal mucosa, and tongue normal and mucous membranes are moist NECK: supple, no nuchal rigidity, no adenopathy, non-tender LUNGS: Clear to auscultation. Normal chest wall mechanics HEART: no murmurs, S1 normal and S2 normal ABDOMEN: abdomen soft, tenderness to palpation in epigastric region, normo- active bowel sounds, no masses, no rebound or guarding. BACK: Back is symmetrical on inspection and there is no deformity, no midline tenderness, no CVA tenderness. SKIN: no rashes and no bruising UPPER EXTREMITIES: upper extremities are grossly normal. LOWER EXTREMITIES: No pitting edema. NEURO EXAM: Normal sensorium, cranial nerves II-XII grossly intact, normal speech, no gross weakness of arms, no gross weakness of legs. Course Course ED COURSE: Vital signs were reviewed and showed hypertensive. The patients medical record was reviewed The above diagnostic studies were performed and reviewed. ED treatments and interventions as stated above. 1740: The patient was evaluated in room B2. A complete history and physical examination was performed. 1924: Upon reevaluation, the patient is resting comfortably. I discussed my findings with the patient and he understands and agrees with the treatment plan. 1934: I discussed the patient's case with Dr. Bibiana Morales Hospitalist, she will accept the patient for further evaluation. Based on the patients age, coexisting illnesses, exam and lab findings the decision to treat as an inpatient was made. The patient remained stable while under my care. The patient will be evaluated for further management. Administered Medications Lactated Ringer's (Lr) 1,000 mls @ 250 mls/hr IV .Q4H TOMAS Stop: 06/06/19 20:44 Last Admin: 05/07/19 21:01 Dose: 250 mls/hr Documented by: [id number] Discontinued Medications Albuterol (Duoneb) 3 ml NEB NOW STA Stop: 05/07/19 20:32 Last Admin: 05/07/19 21:07 Dose: 3 ml Documented by: [id number] Piperacillin Sod/Tazobactam Sod (Zosyn) 4.5 gm in 120 mls @ 240 mls/hr IV NOW ONE; Protocol Stop: 05/07/19 19:50 Last Infusion: 05/07/19 21:03 Dose: 0 mls/hr Documented by: [id number] Admin: 05/07/19 19:39 Dose: 240 mls/hr Documented by: [id number] Levofloxacin/Dextrose (Levaquin/D5w) 500 mg in 100 mls @ 100 mls/hr IV NOW STA Stop: 05/07/19 20:20 Last Infusion: 05/07/19 21:53 Dose: 0 mls/hr Documented by: [id number] Admin: 05/07/19 20:30 Dose: 100 mls/hr Documented by: [id number] Sodium Chloride (Nss 1000ml) 1,000 mls @ 999 mls/hr IV .Q1H1M ONE Stop: 05/07/19 20:25 Last Infusion: 05/07/19 21:03 Dose: 0 mls/hr Documented by: [id number] Infusion: 05/07/19 20:48 Dose: 0 mls/hr Documented by: [id number] Admin: 05/07/19 19:38 Dose: 999 mls/hr Documented by: [id number] Sodium Chloride (Nss 1000ml) 1,000 mls @ 999 mls/hr IV .Q1H1M ONE Stop: 05/07/19 21:14 Last Infusion: 05/07/19 22:16 Dose: 0 mls/hr Documented by: [id number] Admin: 05/07/19 20:55 Dose: 999 mls/hr Documented by: [id number] Insulin Glargine (Lantus Solostar Pen) 20 units SC NOW STA Stop: 05/07/19 20:38 Last Admin: 05/07/19 21:16 Dose: 20 units Documented by: [id number] Cosigned by: [id number] Ioversol (Optiray 320 100ml) 94 ml IV ONCE PRN PRN Reason: Interaction Checking Stop: 05/11/19 19:08 Last Admin: 05/07/19 19:09 Dose: 94 ml Documented by: [id number] Methylprednisolone (Solumedrol) 20 mg IV NOW STA Stop: 05/07/19 20:32 Last Admin: 05/07/19 21:02 Dose: Not Given Documented by: [id number] Methylprednisolone (Solumedrol) Confirm Administered Dose 40 mg .ROUTE .STK-MED ONE Stop: 05/07/19 20:57 Last Admin: 05/07/19 20:59 Dose: 20 mg Documented by: [id number] Metoprolol Tartrate (Lopressor) 2.5 mg IV NOW STA Stop: 05/07/19 19:53 Last Admin: 05/07/19 20:54 Dose: 2.5 mg Documented by: [id number] Ondansetron HCl (Zofran) 4 mg IV NOW STA Stop: 05/07/19 19:26 Last Admin: 05/07/19 19:38 Dose: 4 mg Documented by: [id number] Critical Care Time Critical Care Time: Yes Total Critical Care Time: 32 I have personally spent 32 minutes of critical care time in the direct management of this patient. This includes bedside care, interpretation of diagnostic studies, and testing, discussion with consultants, patient, and family members, and other required patient management activities. This 32 minutes is in excess of all separately billable procedures. Medical Decision Making Differential Diagnosis Differential diagnoses includes but is not limited to gastritis, peptic ulcer disease, GERD, gallbladder disease, pancreatitis, small bowel obstruction, acute coronary syndrome, pericarditis, ischemic bowel, irritable bowel disease, irritable bowel syndrome, appendicitis, diverticulitis, malignancy, hernia, urinary tract infection, torsion, perforation, trauma, infectious. Medical Records Attestation: I reviewed the patient's medical records. Home Medications Current Medication List: was personally reviewed by me Laboratory Data Attestation: I reviewed the patient's lab results. Result diagrams: 05/07/19 17:40 05/07/19 17:40 Lab Results 05/07/19 05/07/19 05/07/19 Range/Units 17:40 17:40 19:41 WBC 24.77 H (4.8-10.8) K/uL RBC 3.30 L (4.7-6.1) M/uL Hgb 11.7 L (14.0-18.0) g/dL Hct 33.2 L (42-52) % MCV 100.6 H (80-100) fL MCH 35.5 H (25-34) pg MCHC 35.2 (32-36) g/dL RDW Std Deviation 65.9 H (36.4-46.3) fL RDW Coeff of Marlen 17.9 H (11.5-14.5) % Plt Count 329 (130-400) K/uL MPV 10.1 (7.4-10.4) fL Immature Gran % (Auto) 0.3 % Neut % (Auto) 94.2 % Lymph % (Auto) 1.9 % Rosebud % (Auto) 3.5 % Eos % (Auto) 0.0 % Baso % (Auto) 0.1 % Immature Gran # (Auto) 0.08 H (0.00-0.02) K/uL Neut # (Auto) 23.32 H (1.4-6.5) K/uL Lymph # (Auto) 0.47 L (1.2-3.4) K/uL Rosebud # (Auto) 0.87 H (0.11-0.59) K/uL Eos # (Auto) 0.01 (0-0.5) K/uL Baso # (Auto) 0.02 (0-0.2) K/uL Absolute Nucleated RBC 0.05 H (0-0) K/uL Nucleated RBC % (auto) 0.2 % Echinocytes 1+ Sodium 135 L (136-145) mmol/L Potassium 4.2 (3.5-5.1) mmol/L Chloride 104 (98-107) mmol/L Carbon Dioxide 20 L (21-32) mmol/L Anion Gap 11.0 (3-11) BUN 36 H (7-18) mg/dl Creatinine 1.61 H (0.6-1.4) mg/dl Est Cr Clr Drug Dosing 26.6 ml/min Est GFR ( Amer) 43.6 Est GFR (Non-Af Amer) 37.6 BUN/Creatinine Ratio 22.6 H (10-20) Glucose 281 H (70-99) mg/dl Lactate 4.8 H* (0.4-2.0) mmol/L Calcium 8.7 (8.5-10.1) mg/dl Total Bilirubin 0.5 (0.2-1) mg/dl AST 9 L (15-37) U/L ALT 25 (12-78) U/L Alkaline Phosphatase 47 (45-117) U/L Troponin I < 0.015 (0-0.045) ng/ml Total Protein 6.9 (6.4-8.2) gm/dl Albumin 3.4 (3.4-5.0) gm/dl Globulin 3.5 (2.5-4.0) gm/dl Albumin/Globulin Ratio 1.0 (0.9-2) Lipase 147 (73-393) U/L Urine Color Urine Appearance (Clear) Urine pH (4.5-7.5) Ur Specific Dunbar (1.000-1.030) Urine Protein (Negative) Urine Glucose (UA) (Negative) Urine Ketones (Negative) Urine Blood (Negative) Urine Nitrite (Negative) Urine Bilirubin (Negative) Urine Urobilinogen (Negative) Ur Leukocyte Esterase (Negative) Urine WBC (Auto) (0-5) /hpf Urine RBC (Auto) (0-4) /hpf U Hyaline Cast (Auto) (0-5) /lpf U Epithel Cells (Auto) (0-5) /lpf Urine Bacteria (Auto) (Negative) 05/07/19 Range/Units 20:30 WBC (4.8-10.8) K/uL RBC (4.7-6.1) M/uL Hgb (14.0-18.0) g/dL Hct (42-52) % MCV (80-100) fL MCH (25-34) pg MCHC (32-36) g/dL RDW Std Deviation (36.4-46.3) fL RDW Coeff of Marlen (11.5-14.5) % Plt Count (130-400) K/uL MPV (7.4-10.4) fL Immature Gran % (Auto) % Neut % (Auto) % Lymph % (Auto) % Rosebud % (Auto) % Eos % (Auto) % Baso % (Auto) % Immature Gran # (Auto) (0.00-0.02) K/uL Neut # (Auto) (1.4-6.5) K/uL Lymph # (Auto) (1.2-3.4) K/uL Rosebud # (Auto) (0.11-0.59) K/uL Eos # (Auto) (0-0.5) K/uL Baso # (Auto) (0-0.2) K/uL Absolute Nucleated RBC (0-0) K/uL Nucleated RBC % (auto) % Echinocytes Sodium (136-145) mmol/L Potassium (3.5-5.1) mmol/L Chloride (98-107) mmol/L Carbon Dioxide (21-32) mmol/L Anion Gap (3-11) BUN (7-18) mg/dl Creatinine (0.6-1.4) mg/dl Est Cr Clr Drug Dosing ml/min Est GFR ( Amer) Est GFR (Non-Af Amer) BUN/Creatinine Ratio (10-20) Glucose (70-99) mg/dl Lactate (0.4-2.0) mmol/L Calcium (8.5-10.1) mg/dl Total Bilirubin (0.2-1) mg/dl AST (15-37) U/L ALT (12-78) U/L Alkaline Phosphatase (45-117) U/L Troponin I (0-0.045) ng/ml Total Protein (6.4-8.2) gm/dl Albumin (3.4-5.0) gm/dl Globulin (2.5-4.0) gm/dl Albumin/Globulin Ratio (0.9-2) Lipase (73-393) U/L Urine Color Yellow Urine Appearance Clear (Clear) Urine pH 5.0 (4.5-7.5) Ur Specific Dunbar 1.040 H (1.000-1.030) Urine Protein 1+ H (Negative) Urine Glucose (UA) 3+ H (Negative) Urine Ketones Trace H (Negative) Urine Blood Negative (Negative) Urine Nitrite Negative (Negative) Urine Bilirubin Negative (Negative) Urine Urobilinogen Negative (Negative) Ur Leukocyte Esterase Negative (Negative) Urine WBC (Auto) 0 (0-5) /hpf Urine RBC (Auto) 0-4 (0-4) /hpf U Hyaline Cast (Auto) 1-5 (0-5) /lpf U Epithel Cells (Auto) 5-10 H (0-5) /lpf Urine Bacteria (Auto) Negative (Negative) Imaging Data Radiologist's Impression: Radiology results as stated below per my review and the radiologist's interpretation: XR chest 1V portable CLINICAL HISTORY: cp dyspnea COMPARISON STUDY: 11/25/2017 FINDINGS: Poorly defined parenchymal infiltrate left base. Lungs otherwise are clear. Postoperative changes including pacemaker and bilateral shoulder arthroplasties are present. IMPRESSION: Infiltrate left base The above report was generated using voice recognition software. It may contain grammatical, syntax or spelling errors. Electronically signed by: Sanjay Mtz M.D. 05/07/2019 6:[address] abd pelvis IV con only CT DOSE: 347.84 mGy.cm HISTORY: Pain abd TECHNIQUE: Multiaxial CT images of the abdomen and pelvis were performed following the use of intravenous contrast. A dose lowering technique was utilized adhering to the principles of ALARA. COMPARISON STUDY: 04/14/2017 FINDINGS: Progressive infiltrate left lower lobe compared to the prior exam. Minimal dependent right basilar atelectatic change. Fatty replacement of the liver. Spleen and pancreas are unremarkable. There is a small 5 mm pancreatic tail cyst unchanged from the prior exam. This most likely represents a high p.m. and. No additional parenchymal abnormality is identified. There is a small diverticulum of third portion of duodenal sweep. Bowel pattern is nonobstructive. Nonspecific proximal left upper to mid abdominal enteritis. No evidence for abscess collection or obstruction. Chronic sigmoid diverticulosis. No evidence for acute diverticulitis. No evidence for abscess collection or obstruction. Several renal cysts stable compared to the prior exam. IMPRESSION: 1. Chronic sigmoid and colonic diverticulosis. 2. Hyperemia and mild wall thickening of several left mid to left upper quadrant small bowel loops. This is consistent with a nonspecific enteritis. 3. Fatty replacement of liver. 4. Left lower lobe infiltrate with a minimal infiltrate right lung base. The above report was generated using voice recognition software. It may contain grammatical, syntax or spelling errors. Electronically signed by: Sanjay Mtz M.D. 05/07/2019 7:18 PM ECG Data Attestation: I personally reviewed and interpreted this ECG as follows: Indication: + chest pain Rate (beats per minute): 95 Rhythm: + sinus rhythm ECG Intervals/blocks: + Normal QT ECG Findings: + Other (T wave flattening in avl and septal leads); no PVCs Blood Pressure Blood Pressure Findings: Elevated blood pressure Blood Pressure Disposition: further management by hospitalist LAURA Narrative Patient is an 89-year-old male who presents the ER for epigastric abdominal pain rating upwards into his chest. IV was established blood work was obtained. Labs show a leukocytosis of 24 thousand. No significant anemia. BMP with creatinine 1.6. Glucose was elevated at 340 but was not gapped. Lactate was elevated initially at 4 and was repeated. He was given 1 L of IV fluids prior to the repeat and did go up to 5. He is still waiting to get his second liter of fluids. LFTs was unremarkable. Troponin was negative. Lipase is unremarkable. He was covered with IV Zosyn and Levaquin as on the CT of the abdomen pelvis which showed an enteritis did also show a pneumonia. Do favor that he likely aspirated as this is in the right lower. Question of the leukocytosis secondary to the vomiting. Case was discussed with the hospitalist and patient will be observed and admitted overnight. Family and patient was updated at bedside. Impression & Plan Sepsis, Pneumonia, Abdominal pain, Chest pain, Leukocytosis Discharge Plan Visit Data Chief Complaint: Vomiting Stated Complaint: CHEST PAIN, VOMITING ED Provider: Cristofer Vega Discharge Problem: Sepsis, Pneumonia, Abdominal pain, Chest pain, Leukocytosis Patient Disposition: Being Evaluated by Hospitalist Discharge Problem: Sepsis Qualifiers: Sepsis type: sepsis due to unspecified organism Sepsis acute organ dysfunction status: unspecified Qualified Code(s): A41.9 - Sepsis, unspecified organism Pneumonia Qualifiers: Pneumonia type: due to unspecified organism Laterality: right Lung location: lower lobe of lung Qualified Code(s): J18.9 - Pneumonia, unspecified organism Abdominal pain Qualifiers: Abdominal location: epigastric Qualified Code(s): R10.13 - Epigastric pain Chest pain Qualifiers: Chest pain type: unspecified Qualified Code(s): R07.9 - Chest pain, unspecified Leukocytosis Qualifiers: Leukocytosis type: unspecified Qualified Code(s): D72.829 - Elevated white blood cell count, unspecified The scribe's documentation has been prepared under my direction and personally reviewed by me in its entirety. I confirm that the note above accurately reflects all work, treatment, procedures, and medical decision making performed by me.
[2019-05-07] MEDS ORDERED: AMPICILLIN/SULBACTAM CONSULT ACTIVE PRN (23:13)
[2019-05-07] MEDS: PRIMIDONE 50 MG TAB PO SCH (23:54)
[2019-05-07] MEDS: PANTOprazole 40 MG TAB PO SCH (23:55)
[2019-05-07] MEDS: INSULIN ASPART 100 UNITS/ML 3 ML PEN SC SCH (23:58)
[2019-05-08] MEDS ORDERED: AMPICILLIN/SULBACTAM SOD 3,000 MG in 0.9 % SODIUM CHLORIDE 100 ML IV SCH
[2019-05-08 00:26] LABS: Hematocrit (blood only) 29.3 % (42-52); Hemoglobin 10.2 g/dL (14.0-18.0)
[2019-05-08] MEDS: MAGNESIUM SULFATE / D5W 1 GM/100 ML BAG IV SCH ×3 (00:27→02:18)
[2019-05-08] MEDS ORDERED: XOPENEX/ATROVENT 1.25mg/0.5MG NEB COMBO NEB SCH (01:00)
[2019-05-08] MEDS: LEVALBUTEROL 1.25MG/0.5ML NEB INH SCH ×2 (01:00→06:57)
[2019-05-08] MEDS: IPRATROPIUM BROMIDE NEB SOLN 0.02% 2.5 ML VIAL INH SCH ×2 (01:00→06:57)
[2019-05-08] MEDS: LACTATED RINGER'S 1,000 ML IV SCH ×3 (02:18→11:17)
[2019-05-08 05:58] LABS: Basophils # (auto) 0.01 K/uL (0-0.2); Hematocrit (blood only) 27.5 % (42-52); Hemoglobin 9.8 g/dL (14.0-18.0); Immature Granulocytes # (auto) 0.06 K/uL (0.00-0.02); Immature Granulocytes % (auto) 0.3 %; Lymphocytes # (auto) 0.48 K/uL (1.2-3.4); Lymphocytes % (auto) 2.4 %; Mean Corpuscular Hemoglobin 35.8 pg (25-34); Mean Corpuscular Hgb Conc 35.6 g/dL (32-36); Mean Corpuscular Volume 100.4 fL (80-100); Mean Platelet Volume 9.6 fL (7.4-10.4); Neutrophils # (auto) 19.22 K/uL (1.4-6.5); Neutrophils % (auto) 95.3 %; Platelet Count 251 K/uL (130-400); RDW Coefficient of Variation 18.3 % (11.5-14.5); Red Blood Count 2.74 M/uL (4.7-6.1); White Blood Count 20.17 K/uL (4.8-10.8)
[2019-05-08 06:35] LABS: BUN Creatinine Ratio 20.4 (10-20); Calcium 8.2 mg/dl (8.5-10.1); Creatinine Clr Calc Pharmacy 35.5 ml/min; Est GFR (African American) 52.1; Est GFR (Non-African American) 44.9; Magnesium 2.1 mg/dl (1.8-2.4); Potassium 4.2 mmol/L (3.5-5.1)
[2019-05-08 06:37] LABS: Estimated Average Glucose 197 mg/dl; Hemoglobin A1C 8.5 % (4.5-5.6)
[2019-05-08] MEDS ORDERED: ACETAMINOPHEN 325 MG TAB PO PRN (07:55)
[2019-05-08] MEDS: AMLODIPINE BESYLATE 5 MG TAB PO SCH (08:19)
[2019-05-08] MEDS: ATORVASTATIN 10 MG TAB PO SCH (08:19)
[2019-05-08] MEDS: PRIMIDONE 50 MG TAB PO SCH ×2 (08:20→20:45)
[2019-05-08] MEDS: INSULIN GLARGINE SOLOSTAR 100 UNITS/ML 3 ML PEN SC SCH (08:21)
[2019-05-08] MEDS: INSULIN ASPART 100 UNITS/ML 3 ML PEN SC SCH ×4 (08:24→20:42)
[2019-05-08] MEDS: AMPICILLIN/SULBACTAM SOD 3,000 MG in 0.9 % SODIUM CHLORIDE 100 ML IV SCH ×3 (09:43→20:41)
[2019-05-08] MEDS ORDERED: ALBUT/IPRATROP 3MG/0.5MG NEB 3 ML VIAL NEB PRN (10:50)
[2019-05-08] MEDS: VITAMIN B COMPLEX TAB PO SCH (13:06)
--- NOTE | 2019-05-08 18:14 | Hospitalist Progress Note ---
Date of Service May 08, 2019 Assessment & Plan (1) Severe sepsis: -This is a patient who was admitted by [facility] physician on 05/08/19 for aspiration pneumonia and because of SIRS plus Acute kidney injury plus lactic acidosis, the patient met diagnosis of severe sepsis -patient has been hemodynamically stable -lactic acid has been chronically elevated on repeat labs in the 4 to 5 ranges but patient did not appear to be in acute distress -as high volume IV fluids did not significantly lower lactic acid levels, scheduled nebulizers were held as beta agonists can increase or maintain the lactic acid levels -subsequently lactic acid coming to the 3.2 by evening of 05/08/19 without further aggressive IV fluids -continue empiric antibiotics of ampicillin, nebulizers on a prn basis Hemoptysis secondary to cough -reported by patient -appears to be resolved -continued to monitor Hemoglobin acute kidney injury -admission creatinine is 1.6 -after IV fluids creatinine is 1.3 which is around baseline chronic diastolic heart failure (EF 60 to 65%, TTE 2014) CAD as per records presence of pacemaker -monitor volume status -on telemetry Hypertension -can continue amlodipine 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 SCD Full Code Family [phone] Subjective Patient currently sleeping. Was seen earlier and not in distress. has been breathing on room air. lactic acid downtrended. Patient did not have any pain complaints. Physical exam with right lower lung mtz with crackles Review of Systems Review of Systems: All systems reviewed & are unremarkable except as noted in HPI & below Physical Exam Constitutional: comfortable Eyes: PERRL, conjunctivae normal, anicteric sclerae ENMT: external ear and nose normal, oropharynx normal Neck: normal visual inspection Respiratory: normal respiratory effort right lower lung mtz with crackles Cardiovascular: Rate/Rhythm: regular rate and regular rhythm Gastrointestinal (Abdomen): normal bowel sounds, soft, nontender, no hepatosplenomegaly Musculoskeletal: Head/Neck/Chest: normocephalic and head atraumatic Neurologic: PERRL, EOMI, accommodation nl, no face palsy, no dysarthria Results & Data Vital Signs (Past 12 Hours) Vital Signs Temp Pulse Pulse Pulse Resp BP BP 05/08/19 15:59 37.1 C 76 18 135/73 05/08/19 14:57 75 05/08/19 11:32 36.4 C L 81 18 145/70 H 05/08/19 07:32 36.6 C 83 18 155/62 H 05/08/19 07:14 70 05/08/19 06:57 95 H 20 Pulse Ox 05/08/19 15:59 93 05/08/19 14:57 05/08/19 11:32 91 05/08/19 07:32 90 05/08/19 07:14 05/08/19 06:57 91
[2019-05-08] MEDS: TERAZOSIN HCL 5 MG CAP PO SCH (20:44)
[2019-05-08] MEDS: METOPROLOL SUCC 25MG EXT REL TAB PO SCH (20:46)
[2019-05-08] MEDS: PANTOprazole 40 MG TAB PO SCH (20:46)
[2019-05-09] MEDS: AMPICILLIN/SULBACTAM SOD 3,000 MG in 0.9 % SODIUM CHLORIDE 100 ML IV SCH (04:03)
[2019-05-09 06:57] LABS: Basophils # (auto) 0.01 K/uL (0-0.2); Basophils % (auto) 0.1 %; Eosinophils # (auto) 0.16 K/uL (0-0.5); Eosinophils % (auto) 1.5 %; Hematocrit (blood only) 27.2 % (42-52); Hemoglobin 9.6 g/dL (14.0-18.0); Immature Granulocytes # (auto) 0.03 K/uL (0.00-0.02); Immature Granulocytes % (auto) 0.3 %; Lymphocytes # (auto) 0.85 K/uL (1.2-3.4); Lymphocytes % (auto) 7.8 %; Mean Corpuscular Hemoglobin 35.7 pg (25-34); Mean Corpuscular Hgb Conc 35.3 g/dL (32-36); Mean Corpuscular Volume 101.1 fL (80-100); Mean Platelet Volume 9.4 fL (7.4-10.4); Monocytes # (auto) 0.52 K/uL (0.11-0.59); Monocytes % (auto) 4.8 %; Neutrophils # (auto) 9.29 K/uL (1.4-6.5); Neutrophils % (auto) 85.5 %; Nucleated RBC # (auto) 0.02 K/uL (0-0); Nucleated RBC % (auto) 0.2 %; Platelet Count 269 K/uL (130-400); RDW Coefficient of Variation 18.5 % (11.5-14.5); Red Blood Count 2.69 M/uL (4.7-6.1); White Blood Count 10.86 K/uL (4.8-10.8)
[2019-05-09 07:34] LABS: Albumin Level 2.5 gm/dl (3.4-5.0); BUN Creatinine Ratio 14.5 (10-20); Calcium 8.7 mg/dl (8.5-10.1); Creatinine Clr Calc Pharmacy 34.9 ml/min; Est GFR (African American) 56.5; Est GFR (Non-African American) 48.7; Potassium 3.8 mmol/L (3.5-5.1)
[2019-05-09 07:46] LABS: Albumin Globulin Ratio 0.7 (0.9-2); Bilirubin,Total 0.6 mg/dl (0.2-1); Globulin 3.5 gm/dl (2.5-4.0)
[2019-05-09] MEDS: ATORVASTATIN 10 MG TAB PO SCH (08:28)
[2019-05-09] MEDS: AMLODIPINE BESYLATE 5 MG TAB PO SCH (08:28)
[2019-05-09] MEDS: PRIMIDONE 50 MG TAB PO SCH ×2 (08:28→21:08)
[2019-05-09] MEDS: METOPROLOL SUCC 25MG EXT REL TAB PO SCH ×2 (08:28→21:08)
[2019-05-09] MEDS: INSULIN GLARGINE SOLOSTAR 100 UNITS/ML 3 ML PEN SC SCH (08:30)
[2019-05-09] MEDS: cefTRIAXone SODIUM 2,000 MG in DEXTROSE 5% 50 ML IV SCH (08:33)
[2019-05-09] MEDS: INSULIN ASPART 100 UNITS/ML 3 ML PEN SC SCH ×4 (08:37→21:09)
[2019-05-09] MEDS ORDERED: LOSARTAN POTASSIUM 50 MG TAB PO SCH (09:00)
[2019-05-09] MEDS: AZITHROMYCIN 500 MG in DEXTROSE 5% 250 ML IV SCH (09:26)
--- NOTE | 2019-05-09 11:43 | Hospitalist Progress Note ---
Date of Service May 09, 2019 Assessment & Plan (1) Severe sepsis: -This is a patient who was admitted by [facility] physician on 05/08/19 for aspiration pneumonia and because of SIRS plus Acute kidney injury plus lactic acidosis, the patient met diagnosis of severe sepsis -patient has been hemodynamically stable -lactic acid has been chronically elevated on repeat labs in the 4 to 5 ranges but patient did not appear to be in acute distress -as high volume IV fluids did not significantly lower lactic acid levels, scheduled nebulizers were held as beta agonists can increase or maintain the lactic acid levels -subsequently lactic acid coming to the 3.2 by evening of 05/08/19 without further aggressive IV fluids -nebulizers on a prn basis -antibiotics changed from ampicillin to ceftriaxone and azithromycin starting on 05/09/19, titrate off supplementary oxygen if needed Hemoptysis secondary to cough -continued to monitor Hemoglobin acute kidney injury -admission creatinine is 1.6 -after IV fluids creatinine on this admission the creatinine is 1.3 which is around baseline chronic diastolic heart failure (EF 60 to 65%, TTE 2014) CAD as per records presence of pacemaker -monitor volume status -on telemetry Hypertension -can continue amlodipine Type 2 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 SCD Full Code Family [phone] Subjective Patient seen and examined while on nasal cannula oxygen. Patient denies acute discomforts. no chest pain. no abdominal pain. no vomiting. able to tolerate diet. still some coughing Review of Systems Review of Systems: All systems reviewed & are unremarkable except as noted in HPI & below Physical Exam Constitutional: comfortable Eyes: PERRL, conjunctivae normal, anicteric sclerae ENMT: external ear and nose normal, oropharynx normal Neck: normal visual inspection Respiratory: normal respiratory effort Cardiovascular: Rate/Rhythm: regular rate and regular rhythm Gastrointestinal (Abdomen): normal bowel sounds, soft, nontender, no hepatosplenomegaly Musculoskeletal: Head/Neck/Chest: normocephalic and head atraumatic Neurologic: PERRL, EOMI, accommodation nl, no face palsy, no dysarthria Results & Data Vital Signs (Past 12 Hours) Vital Signs Temp Pulse Pulse Resp BP BP Pulse Ox 05/09/19 11:29 36.4 C L 70 20 160/76 H 95 05/09/19 07:35 66 20 182/74 H 90 05/09/19 05:54 36.5 C 66 20 162/77 H 92 05/09/19 04:34 36.8 C 75 20 164/81 H 91 05/09/19 00:17 70
[2019-05-09] MEDS ORDERED: POLYETHYLENE (MIRALAX) 17 GM PACK PO PRN (11:44)
--- NOTE | 2019-05-09 11:59 | Internal Medicine Consult Note ---
Date of Consultation May 09, 2019 Assessment & Plan (1) Encounter for rehabilitation: Given his age and underlying acute and chronic medical issues, he falls into our higher risk group. Special care with pulmonary toilet and volume assessments will be provided. Onsite RT at [facility] would benefit him. Will accept him when primary medical team has determined completion of the acute care measures. History of Present Illness Reason for Consultation: High Medical Risk Assessment for Rehab Hospital care Attending Physician: John Lacey MD History of Present Illness He developed N/V with possible aspiration &/or LL pneumonia associated with sepsis. He appears to be responding to current acute care treatment. A referral for Acute Inpatient Rehab requested. Underlying performance is fair. Underlying diastolic CHF and gait dysfunction noted. He is profoundly weak and likely has element of critical illness related weakness. He would benefit from care in the acute rehab hospital environment. Allergies Allergy/AdvReac Type Severity Reaction Status Date / Time lisinopril Allergy Unknown HIVES Verified 05/07/19 18:08 Home Medications Home Medications Medication Instructions Recorded Confirmed Type amlodipine 5 mg PO DAILY 05/07/19 05/07/19 History aspirin 81 mg PO DAILY 05/07/19 05/07/19 History atorvastatin 10 mg PO DAILY 05/07/19 05/07/19 History budesonide-formoterol [Symbicort] 2 puff INHALATION BID PRN 05/07/19 05/07/19 History cyanocobalamin (vitamin B-12) 1,000 mcg PO DAILY@1200 05/07/19 05/07/19 History ergocalciferol (vitamin D2) 50,000 unit PO Q7D@1800 05/07/19 05/07/19 History [Vitamin D2] losartan 100 mg PO DAILY@1200 05/07/19 05/07/19 History magnesium 200 mg PO HS 05/07/19 05/07/19 History metformin 1,000 mg PO BID 05/07/19 05/07/19 History metoprolol succinate 25 mg PO BID 05/07/19 05/07/19 History omeprazole 20 mg PO QPM 05/07/19 05/07/19 History primidone 25 mg PO BID 05/07/19 05/07/19 History terazosin 5 mg PO HS 05/07/19 05/07/19 History vitamin B complex 1 tab PO DAILY@1200 05/07/19 05/07/19 History Patient History Medical History GERD (gastroesophageal reflux disease) (Chronic) HTN (hypertension) (Chronic) Social History Preferred Language: Jordanian Communication Ability: Effective Line Technician Required: No Beliefs That Will Affect Care: None Current Living Situation: Spouse Feels Safe at Home: Yes Smoking Status: Former smoker Hx Alcohol Use: No Hx Substance Use: No Review of Systems Review of Systems: No ROS targets Physical Exam Physical Exam: Afeb and Hemodynamics stable. HEENT-negative Respiratory--comfortable Cardio--volume status ok GI--functional Musculo--no acute target Neuro--appropriate and nonfocal Psych--appropriate Results & Data Vital Signs (Past 12 Hours) Vital Signs Temp Pulse Pulse Resp BP BP Pulse Ox 05/09/19 11:29 36.4 C L 70 20 160/76 H 95 05/09/19 07:35 66 20 182/74 H 90 05/09/19 05:54 36.5 C 66 20 162/77 H 92 05/09/19 04:34 36.8 C 75 20 164/81 H 91 05/09/19 00:17 70
[2019-05-09] MEDS ORDERED: MAGNESIUM HYDROXIDE SUSP 30 ML UDC PO ONE (12:00)
[2019-05-09] MEDS: VITAMIN B COMPLEX TAB PO SCH (13:10)
[2019-05-09] MEDS: TERAZOSIN HCL 5 MG CAP PO SCH (21:08)
[2019-05-09] MEDS: PANTOprazole 40 MG TAB PO SCH (21:08)
[2019-05-10 06:26] LABS: Basophils # (auto) 0.01 K/uL (0-0.2); Basophils % (auto) 0.1 %; Eosinophils # (auto) 0.63 K/uL (0-0.5); Eosinophils % (auto) 7.7 %; Hematocrit (blood only) 27.7 % (42-52); Hemoglobin 9.6 g/dL (14.0-18.0); Immature Granulocytes # (auto) 0.04 K/uL (0.00-0.02); Immature Granulocytes % (auto) 0.5 %; Lymphocytes % (auto) 12.2 %; Mean Corpuscular Hemoglobin 35.4 pg (25-34); Mean Corpuscular Hgb Conc 34.7 g/dL (32-36); Mean Corpuscular Volume 102.2 fL (80-100); Mean Platelet Volume 9.2 fL (7.4-10.4); Monocytes # (auto) 0.48 K/uL (0.11-0.59); Monocytes % (auto) 5.9 %; Neutrophils # (auto) 6.02 K/uL (1.4-6.5); Neutrophils % (auto) 73.6 %; Platelet Count 278 K/uL (130-400); RDW Coefficient of Variation 18.2 % (11.5-14.5); RDW Standard Deviation 66.8 fL (36.4-46.3); Red Blood Count 2.71 M/uL (4.7-6.1); White Blood Count 8.18 K/uL (4.8-10.8)
[2019-05-10 07:01] LABS: Albumin Level 2.5 gm/dl (3.4-5.0); BUN Creatinine Ratio 12.6 (10-20); Calcium 8.7 mg/dl (8.5-10.1); Creatinine Clr Calc Pharmacy 37.8 ml/min; Est GFR (African American) 62.2; Est GFR (Non-African American) 53.7; Potassium 3.7 mmol/L (3.5-5.1)
[2019-05-10 07:05] LABS: Albumin Globulin Ratio 0.7 (0.9-2); Bilirubin,Total 0.6 mg/dl (0.2-1); Globulin 3.5 gm/dl (2.5-4.0)
--- NOTE | 2019-05-10 08:19 | XRay Report ---
XR chest 2V PA/lateral HISTORY: follow lung infiltrates COMPARISON: Chest CT 05/07/2019. FINDINGS: No pneumothorax. The heart is borderline enlarged. Left dual-chamber pacemaker is again not ed. No evidence for pulmonary edema. Interval progression of the bilateral lower lobe densities and s mall bilateral pleural effusions. IMPRESSION: Interval progression of the bilateral lower lobe airspace opacities and small bilateral pleural effus ions. This is concerning for a pneumonia. Electronically signed by: Greg Gray M.D. 05/10/2019 8:18 AM
[2019-05-10] MEDS: INSULIN ASPART 100 UNITS/ML 3 ML PEN SC SCH ×4 (08:45→21:27)
[2019-05-10] MEDS: INSULIN GLARGINE SOLOSTAR 100 UNITS/ML 3 ML PEN SC SCH (08:46)
[2019-05-10] MEDS: PRIMIDONE 50 MG TAB PO SCH ×2 (08:47→21:26)
[2019-05-10] MEDS: LOSARTAN POTASSIUM 50 MG TAB PO SCH (08:47)
[2019-05-10] MEDS: ATORVASTATIN 10 MG TAB PO SCH (08:48)
[2019-05-10] MEDS: METOPROLOL SUCC 25MG EXT REL TAB PO SCH ×2 (08:48→21:27)
[2019-05-10] MEDS: AMLODIPINE BESYLATE 5 MG TAB PO SCH (08:49)
[2019-05-10] MEDS: cefTRIAXone SODIUM 2,000 MG in DEXTROSE 5% 50 ML IV SCH (08:50)
[2019-05-10] MEDS: AZITHROMYCIN 500 MG in DEXTROSE 5% 250 ML IV SCH (10:10)
--- NOTE | 2019-05-10 12:32 | Hospitalist Progress Note ---
Date of Service May 10, 2019 Assessment & Plan (1) Severe sepsis: Sepsis from Left Lower Lobe pneumonia with progression to bilateral pneumonia -This is a patient who was admitted by [facility] physician on 05/08/19 for aspiration pneumonia and because of SIRS plus Acute kidney injury plus lactic acidosis, the patient met diagnosis of severe sepsis -patient has been hemodynamically stable -lactic acid has been chronically elevated on repeat labs in the 4 to 5 ranges but patient did not appear to be in acute distress -as high volume IV fluids did not significantly lower lactic acid levels, scheduled nebulizers were held as beta agonists can increase or maintain the lac tic acid levels -subsequently lactic acid coming to the 3.2 by evening of 05/08/19 without further aggressive IV fluids -nebulizers on a prn basis -antibiotics changed from ampicillin to ceftriaxone and azithromycin starting on 05/09/19 -05/10/19: 2 view Chest X ray shows Interval progression of the bilateral lower lobe airspace opacities and small bilateral pleural effusions. This is concerning for a pneumonia. clinically however patient is improved and better respiratory lung exam, lactic acid is normalized, white blood cell count normalized. continue ceftriaxone and azithromycin. 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 SCD Full Code Family [phone] trimming caser to discuss with patient and family whether they would like him to go to inpatient physical rehabilitation after hospital stay or not Subjective Patient was taken off of nasal cannula oxygen after waking up in the AM. Seen and examined on room air while eating the lunch. family members at the bedside. Patient appears to be having difficulty deciding whether he would agree to do inpatient physical rehabilitation after the hospital stay. episode of cough during exam which was transient and short in duration. no vomiting. no nausea. no abdominal pain Review of Systems Review of Systems: All systems reviewed & are unremarkable except as noted in HPI & below Physical Exam Constitutional: comfortable Eyes: PERRL, conjunctivae normal, anicteric sclerae ENMT: external ear and nose normal, oropharynx normal Neck: normal visual inspection Respiratory: normal respiratory effort Cardiovascular: Rate/Rhythm: regular rate and regular rhythm Gastrointestinal (Abdomen): normal bowel sounds, soft, nontender, no hepatosplenomegaly Musculoskeletal: Head/Neck/Chest: normocephalic and head atraumatic Neurologic: PERRL, EOMI, accommodation nl, no face palsy, no dysarthria Results & Data Vital Signs (Past 12 Hours) Vital Signs Temp Pulse Pulse Resp BP Pulse Ox 05/10/19 11:52 36.4 C L 72 16 160/76 H 92 05/10/19 08:22 91 05/10/19 07:15 37.0 C 64 20 187/73 H 96 05/10/19 01:22 62
[2019-05-10] MEDS ORDERED: BUDESONIDE/FORMOTEROL FUMARATE 160/4.5 60 PUFFS/INHALER INH PRN (13:04)
[2019-05-10] MEDS: VITAMIN B COMPLEX TAB PO SCH (13:11)
[2019-05-10] MEDS ORDERED: FUROSEMIDE 40 MG in SYRINGE 0 ML IV ONE (13:15)
[2019-05-10] MEDS: TERAZOSIN HCL 5 MG CAP PO SCH (21:27)
[2019-05-10] MEDS: PANTOprazole 40 MG TAB PO SCH (21:27)
[2019-05-11] MEDS ORDERED: FUROSEMIDE 40 MG in SYRINGE 0 ML IV ONE (08:00)
[2019-05-11] MEDS: ATORVASTATIN 10 MG TAB PO SCH (08:05)
[2019-05-11] MEDS: METOPROLOL SUCC 25MG EXT REL TAB PO SCH ×2 (08:05→20:23)
[2019-05-11] MEDS: AMLODIPINE BESYLATE 5 MG TAB PO SCH (08:05)
[2019-05-11] MEDS: LOSARTAN POTASSIUM 50 MG TAB PO SCH (08:05)
[2019-05-11] MEDS: PRIMIDONE 50 MG TAB PO SCH ×2 (08:06→20:21)
[2019-05-11] MEDS: INSULIN GLARGINE SOLOSTAR 100 UNITS/ML 3 ML PEN SC SCH (08:06)
[2019-05-11] MEDS: INSULIN ASPART 100 UNITS/ML 3 ML PEN SC SCH ×4 (08:11→20:20)
[2019-05-11] MEDS: ASPIRIN 81 MG ECTAB PO SCH (08:22)
[2019-05-11] MEDS: cefTRIAXone SODIUM 2,000 MG in DEXTROSE 5% 50 ML IV SCH (08:22)
[2019-05-11] MEDS: AZITHROMYCIN 500 MG in DEXTROSE 5% 250 ML IV SCH (09:02)
--- NOTE | 2019-05-11 09:23 | Hospitalist Progress Note ---
Date of Service May 11, 2019 Assessment & Plan (1) Severe sepsis: Sepsis from Left Lower Lobe pneumonia with progression to bilateral pneumonia -This is a patient who was admitted by [facility] physician on 05/08/19 for aspiration pneumonia and because of SIRS plus Acute kidney injury plus lactic acidosis, the patient met diagnosis of severe sepsis -patient has been hemodynamically stable -lactic acid has been chronically elevated on repeat labs in the 4 to 5 ranges but patient did not appear to be in acute distress -as high volume IV fluids did not significantly lower lactic acid levels, scheduled nebulizers were held as beta agonists can increase or maintain the lac tic acid levels -subsequently lactic acid coming to the 3.2 by evening of 05/08/19 without further aggressive IV fluids -nebulizers on a prn basis -antibiotics changed from ampicillin to ceftriaxone and azithromycin starting on 05/09/19 -05/10/19: 2 view Chest X ray shows Interval progression of the bilateral lower lobe airspace opacities and small bilateral pleural effusions. This is concerning for a pneumonia. clinically however patient is improved and better respiratory lung exam, lactic acid is normalized, white blood cell count normalized. continue ceftriaxone and azithromycin. Lasix 40 mg x 1 ordered -05/11/19: continue antibiotics, send stool culture and C.difficile test, plan for overnight pulse oximetry testing Diarrhea -send stool culture and C.difficile test chronic diastolic heart failure (EF 60 to 65%, TTE 2014) CAD as per records presence of pacemaker -continue aspirin -Lasix 40 mg x 1 ordered on 05/10/19. transferred off telemetry as of 05/10/19 -Lasix 40 mg IV x 1 ordered on 05/11/19 Hypertension -continue losartan 100 mg daily -amlodipine increased to 10 mg daily starting on 05/11/19 -trial diuretics as above acute kidney injury -admission creatinine is 1.6 -after IV fluids creatinine on this admission the creatinine is 1.3 which is around baseline, creatinine is 1.2 on 05/10/19 Type 2 diabetes mellitus without residential current use of insulin -recent outpatient hemoglobin A1c of 7.26 February 2019 -hold home dose metformin -recent admission hyperglycemia likely from respiratory steroids -insulin as needed Hemoptysis secondary to cough -Hemoglobin generally stable History Pulmonary in the distant past DVT prophylaxis. SCD Full Code Family [phone] test case developer discussed with patient and family and the patient declines inpatient rehabilitation center after hospital stay, preference is discharge to home with home health services when medically ready for discharge Subjective Patient seen and examined this AM. Patient wearing nasal cannula oxygen. As per nurse, patient 88% on room air at night and this was why nasal cannula oxygen started. Medical doctor request that patient be monitored off supplementary oxygen if possible. IV Azithromycin running. Patient reported 4 episodes of diarrhea since yesterday. Patient does not have abdominal pain. No chest pain. No acute shortness of breath. No dizziness. No lightheadedness Review of Systems Review of Systems: All systems reviewed & are unremarkable except as noted in HPI & below Physical Exam Constitutional: comfortable Eyes: PERRL, conjunctivae normal, anicteric sclerae ENMT: external ear and nose normal, oropharynx normal Neck: normal visual inspection Respiratory: normal respiratory effort Cardiovascular: Rate/Rhythm: regular rate and regular rhythm Gastrointestinal (Abdomen): normal bowel sounds, soft, nontender, no hepatosplenomegaly Musculoskeletal: Head/Neck/Chest: normocephalic and head atraumatic Neurologic: PERRL, EOMI, accommodation nl, no face palsy, no dysarthria Results & Data Vital Signs (Past 12 Hours) Vital Signs Temp Pulse Resp BP BP Pulse Ox Pulse Ox 05/11/19 07:42 36.6 C 76 18 189/77 H 90 05/11/19 03:49 36.7 C 65 18 179/77 H 94 05/10/19 23:35 36.6 C 68 16 170/75 H 92 92 05/10/19 21:26 70 168/67 H
[2019-05-11] MEDS: VITAMIN B COMPLEX TAB PO SCH (12:16)
[2019-05-11 13:59] LABS: Basophils # (auto) 0.01 K/uL (0-0.2); Basophils % (auto) 0.2 %; Eosinophils # (auto) 0.54 K/uL (0-0.5); Eosinophils % (auto) 8.1 %; Hematocrit (blood only) 29.8 % (42-52); Hemoglobin 10.4 g/dL (14.0-18.0); Immature Granulocytes # (auto) 0.04 K/uL (0.00-0.02); Immature Granulocytes % (auto) 0.6 %; Lymphocytes # (auto) 1.22 K/uL (1.2-3.4); Lymphocytes % (auto) 18.4 %; Mean Corpuscular Hemoglobin 35.4 pg (25-34); Mean Corpuscular Hgb Conc 34.9 g/dL (32-36); Mean Corpuscular Volume 101.4 fL (80-100); Mean Platelet Volume 9.5 fL (7.4-10.4); Monocytes # (auto) 0.64 K/uL (0.11-0.59); Monocytes % (auto) 9.6 %; Neutrophils # (auto) 4.19 K/uL (1.4-6.5); Neutrophils % (auto) 63.1 %; Platelet Count 321 K/uL (130-400); RDW Coefficient of Variation 18.1 % (11.5-14.5); RDW Standard Deviation 66.9 fL (36.4-46.3); Red Blood Count 2.94 M/uL (4.7-6.1); White Blood Count 6.64 K/uL (4.8-10.8)
[2019-05-11 14:16] LABS: Albumin Level 2.6 gm/dl (3.4-5.0); Calcium 8.6 mg/dl (8.5-10.1); Creatinine Clr Calc Pharmacy 33.6 ml/min; Est GFR (African American) 54.9; Est GFR (Non-African American) 47.4; Magnesium 1.8 mg/dl (1.8-2.4); Potassium 3.7 mmol/L (3.5-5.1)
[2019-05-11 14:19] LABS: Albumin Globulin Ratio 0.7 (0.9-2); Bilirubin,Total 0.3 mg/dl (0.2-1); Globulin 3.8 gm/dl (2.5-4.0); Phosphorus 3.8 mg/dl (2.5-4.9); Total Protein 6.4 gm/dl (6.4-8.2)
[2019-05-11] MEDS ORDERED: INSULIN GLARGINE SOLOSTAR 100 UNITS/ML 3 ML PEN SC ONE (15:45)
[2019-05-11] MEDS ORDERED: MAGNESIUM SULFATE / D5W 1 GM/100 ML BAG IV ONE (16:00)
[2019-05-11] MEDS: METFORMIN HCL 500 MG TAB PO SCH (17:21)
[2019-05-11] MEDS: HydrALAZINE 10 MG TAB PO SCH (18:11)
[2019-05-11] MEDS: TERAZOSIN HCL 5 MG CAP PO SCH (20:23)
[2019-05-11] MEDS: PANTOprazole 40 MG TAB PO SCH (20:23)
[2019-05-12] MEDS: HydrALAZINE 10 MG TAB PO SCH ×4 (01:08→23:54)
[2019-05-12 07:15] VITALS: TEMP 97.9
[2019-05-12] MEDS: ASPIRIN 81 MG ECTAB PO SCH (08:13)
[2019-05-12] MEDS: LOSARTAN POTASSIUM 50 MG TAB PO SCH (08:13)
[2019-05-12] MEDS: ATORVASTATIN 10 MG TAB PO SCH (08:13)
[2019-05-12] MEDS: PRIMIDONE 50 MG TAB PO SCH ×2 (08:14→20:41)
[2019-05-12] MEDS: METFORMIN HCL 500 MG TAB PO SCH ×2 (08:14→17:19)
[2019-05-12] MEDS: AMLODIPINE BESYLATE 5 MG TAB PO SCH (08:14)
[2019-05-12] MEDS: METOPROLOL SUCC 25MG EXT REL TAB PO SCH ×2 (08:16→20:42)
[2019-05-12] MEDS: INSULIN ASPART 100 UNITS/ML 3 ML PEN SC SCH ×4 (08:16→20:42)
[2019-05-12] MEDS: cefTRIAXone SODIUM 2,000 MG in DEXTROSE 5% 50 ML IV SCH (08:26)
[2019-05-12] MEDS ORDERED: INSULIN GLARGINE SOLOSTAR 100 UNITS/ML 3 ML PEN SC SCH (09:00)
[2019-05-12] MEDS: AZITHROMYCIN 500 MG in DEXTROSE 5% 250 ML IV SCH (09:15)
--- NOTE | 2019-05-12 11:07 | XRay Report ---
XR chest 2V PA/lateral CLINICAL HISTORY: 89 years-old Male presenting with follow up lung infiltrates. TECHNIQUE: PA and lateral views of the chest were obtained. COMPARISON: 05/10/2019. FINDINGS: Left subclavian pacer with leads in the right atrium and right ventricular apex. Atherosclerosis of t he aortic arch. Cardiac silhouette normal in size. Improved aeration of the lungs. Decreased left bas ilar opacity. Persistent bandlike opacity in the left lung base. Trace bilateral pleural effusions ma y be present, left greater than right. Right lung clear. No pneumothorax. Bilateral shoulder arthropl asties. Degenerative changes and mild scoliosis of the spine. Upper abdomen normal. IMPRESSION: 1. Improved aeration of the lung bases with decreased left basilar infiltrate. Continued follow-up t o resolution recommended. 2. Trace bilateral pleural effusions may be present, left greater than right. Electronically signed by: Marlon Ford M.D. 05/12/2019 11:06 AM
--- NOTE | 2019-05-12 11:42 | Hospitalist Progress Note ---
Date of Service May 12, 2019 Assessment & Plan (1) Severe sepsis: Sepsis from Left Lower Lobe pneumonia with progression to bilateral pneumonia -This is a patient who was admitted by [facility] physician on 05/08/19 for aspiration pneumonia and because of SIRS plus Acute kidney injury plus lactic acidosis, the patient met diagnosis of severe sepsis -patient has been hemodynamically stable -lactic acid has been chronically elevated on repeat labs in the 4 to 5 ranges but patient did not appear to be in acute distress -as high volume IV fluids did not significantly lower lactic acid levels, scheduled nebulizers were held as beta agonists can increase or maintain the lac tic acid levels -subsequently lactic acid coming to the 3.2 by evening of 05/08/19 without further aggressive IV fluids -nebulizers on a prn basis -antibiotics changed from ampicillin to ceftriaxone and azithromycin starting on 05/09/19 -05/10/19: 2 view Chest X ray shows Interval progression of the bilateral lower lobe airspace opacities and small bilateral pleural effusions. This is concerning for a pneumonia. clinically however patient is improved and better respiratory lung exam, lactic acid is normalized, white blood cell count normalized. continue ceftriaxone and azithromycin. Lasix 40 mg x 1 ordered -05/11/19: continue antibiotics, send stool culture and C.difficile test, plan for overnight pulse oximetry testing -overnight pulse oximetry from 05/11/19 night to 05/12/19 AM: total duration of desaturation as 1 hour 25 minutes and 42 seconds with 366 desaturation events noted (a desaturation is identified as a decrease of SpO2 percentage below 88 for at least 10 seconds. Comment also in the pulse oximetry study that commercial instructor supervisor doctor had ordered patient from 2liter/min nasal cannula to room air during the study. Patient appears to qualify for nocturnal oxygen. day time doing well on room air. 05/12/19 Chest X ray shows general resolution of lung infiltrates. because patient would like to get nocturnal oxygen from the [facility], case finisher will not be able to get them on a Monday. will need to wait until 05/13/19 for approval from [facility] and the oxygen supplies Diarrhea -send stool culture and C.difficile test when with bowel movement chronic diastolic heart failure (EF 60 to 65%, TTE 2014) CAD as per records presence of pacemaker -continue aspirin -Lasix 40 mg x 1 ordered on 05/10/19. transferred off telemetry as of 05/10/19 -Lasix 40 mg IV x 1 ordered on 05/11/19 Hypertension -continue losartan 100 mg daily -amlodipine increased to 10 mg daily starting on 05/11/19 -trial diuretics as above was given -hydralazine 10 mg q8 hours acute kidney injury -admission creatinine is 1.6 -after IV fluids creatinine on this admission the creatinine is 1.3 which is around baseline, creatinine is 1.2 on 05/10/19, creatinine 1.33 on 05/11/19 Type 2 diabetes mellitus without correction current use of insulin with hyperglycemia -recent outpatient hemoglobin A1c of 7.26 February 2019 -hold home dose metformin -recent admission hyperglycemia likely from respiratory steroids -insulin as needed Hemoptysis secondary to cough -Hemoglobin generally stable History Pulmonary in the distant past DVT prophylaxis. SCD Full Code Family [phone] case finisher discussed with patient and family and the patient declines inpatient rehabilitation center after hospital stay, preference is discharge to home with home health services when medically ready for discharge Subjective overnight pulse oximetry from 05/11/19 night to 05/12/19 AM: total duration of desaturation as 1 hour 25 minutes and 42 seconds with 366 desaturation events noted (a desaturation is identified as a decrease of SpO2 percentage below 88 for at least 10 seconds. Comment also in the pulse oximetry study that commercial instructor supervisor doctor had ordered patient from 2liter/min nasal cannula to room air during the study. Patient appears to qualify for nocturnal oxygen. day time doing well on room air. Chest X ray shows general resolution of lung infiltrates. because [facility], case finisher will not be able to get them on a Monday. will need to wait until 05/13/19 for approval from [facility] and the oxygen supplies no chest pain, no dizziness, no headache, no nausea, no abdominal pain, no diarrhea Review of Systems Review of Systems: All systems reviewed & are unremarkable except as noted in HPI & below Physical Exam Constitutional: comfortable Eyes: PERRL, conjunctivae normal, anicteric sclerae ENMT: external ear and nose normal, oropharynx normal Neck: normal visual inspection Respiratory: normal respiratory effort Cardiovascular: Rate/Rhythm: regular rate and regular rhythm Gastrointestinal (Abdomen): normal bowel sounds, soft, nontender, no hepatosplenomegaly Musculoskeletal: Head/Neck/Chest: normocephalic and head atraumatic Neurologic: PERRL, EOMI, accommodation nl, no face palsy, no dysarthria Results & Data Vital Signs (Past 12 Hours) Vital Signs Temp Pulse Pulse Pulse Resp BP BP 05/12/19 11:19 76 144/75 H 05/12/19 10:30 163/74 H 05/12/19 07:15 36.6 C 75 18 174/77 H 204/83 H 05/12/19 03:40 65 05/12/19 00:47 66 Pulse Ox Pulse Ox 05/12/19 11:19 05/12/19 10:30 05/12/19 07:15 91 05/12/19 03:40 91 05/12/19 00:47 95
[2019-05-12] MEDS: VITAMIN B COMPLEX TAB PO SCH (12:08)
[2019-05-12] MEDS: PANTOprazole 40 MG TAB PO SCH (20:42)
[2019-05-12] MEDS: TERAZOSIN HCL 5 MG CAP PO SCH (20:42)
[2019-05-13] MEDS: cefTRIAXone SODIUM 2,000 MG in DEXTROSE 5% 50 ML IV SCH (08:06)
[2019-05-13] MEDS: PRIMIDONE 50 MG TAB PO SCH (08:07)
[2019-05-13] MEDS: HydrALAZINE 10 MG TAB PO SCH (08:11)
[2019-05-13] MEDS: AMLODIPINE BESYLATE 5 MG TAB PO SCH (08:11)
[2019-05-13] MEDS: LOSARTAN POTASSIUM 50 MG TAB PO SCH (08:11)
[2019-05-13] MEDS: ATORVASTATIN 10 MG TAB PO SCH (08:12)
[2019-05-13] MEDS: METOPROLOL SUCC 25MG EXT REL TAB PO SCH (08:13)
[2019-05-13] MEDS: ASPIRIN 81 MG ECTAB PO SCH (08:13)
[2019-05-13] MEDS: INSULIN ASPART 100 UNITS/ML 3 ML PEN SC SCH ×2 (08:18→12:24)
[2019-05-13] MEDS ORDERED: INSULIN GLARGINE SOLOSTAR 100 UNITS/ML 3 ML PEN SC SCH (09:00)
[2019-05-13] MEDS: METFORMIN HCL 500 MG TAB PO SCH (10:45)
[2019-05-13] MEDS ORDERED: hydroCHLOROthiazide 25 MG TAB PO SCH (10:45)
[2019-05-13] MEDS: AZITHROMYCIN 500 MG in DEXTROSE 5% 250 ML IV SCH (10:45)
[2019-05-13] MEDS ORDERED: LABETALOL HCL IV 5 MG/ML 20ML IV STA (12:07)
[2019-05-13] MEDS: VITAMIN B COMPLEX TAB PO SCH (12:19)
[2019-05-13] MEDS ORDERED: HydrALAZINE 10 MG TAB PO SCH (12:45)
[2019-05-13] MEDS ORDERED: LOPERAMIDE HCL 2 MG CAP PO PRN (12:49)
--- NOTE | 2019-05-13 12:55 | Hospitalist Progress Note ---
Date of Service May 13, 2019 Assessment & Plan (1) Severe sepsis: Sepsis from Left Lower Lobe pneumonia with progression to bilateral pneumonia -This is a patient who was admitted by [facility] physician on 05/08/19 for aspiration pneumonia and because of SIRS plus Acute kidney injury plus lactic acidosis, the patient met diagnosis of severe sepsis -patient has been hemodynamically stable -lactic acid has been chronically elevated on repeat labs in the 4 to 5 ranges but patient did not appear to be in acute distress -as high volume IV fluids did not significantly lower lactic acid levels, scheduled nebulizers were held as beta agonists can increase or maintain the lac tic acid levels -subsequently lactic acid went down to 3.2 by evening of 05/08/19 without further aggressive IV fluids. repeat lactic acid normalized -antibiotics changed from ampicillin to ceftriaxone and azithromycin starting on 05/09/19 -05/10/19: 2 view Chest X ray shows Interval progression of the bilateral lower lobe airspace opacities and small bilateral pleural effusions. This is concernin g for a pneumonia. clinically however patient is improved and better respiratory lung exam, lactic acid is normalized, white blood cell count normalized. continue ceftriaxone and azithromycin. Lasix 40 mg x 1 ordered -Chest X ray 05/12/19 AM shows generally resolved pneumonia. Antibiotics completed on 05/13/19 -overnight pulse oximetry from 05/11/19 night to 05/12/19 AM: total duration of desaturation as 1 hour 25 minutes and 42 seconds with 366 desaturation events noted (a desaturation is identified as a decrease of SpO2 percentage below 88 for at least 10 seconds. Comment also in the pulse oximetry study that ase certified technician doctor had ordered patient from 2liter/min nasal cannula to room air during the study -Patient [place] discharged [place] oxygen from [place] to be set up at 2 liters/minute for use at night. Patient should be evaluated by primary care doctor if he has obstructive sleep apnea -Patient need to follow up also with primary care doctor for follow up of oxygen at night use and sleep study evaluation, diabetes control, blood pressure management, repeat electrolyte labs 05/16/2019 11:20 AM Provider Gisel Limon DO Department [facility] 05/17/2019 9:00 AM Provider Selma Fuentes RN Department [facility] 06/11/2019 8:00 AM Provider Lo Sandoval Department [facility] 06/18/2019 10:40 AM Provider Charlie Stafford MD Department Neurology [facility] 06/20/2019 8:15 AM Provider Guzman Taveras [facility] Department Cardiology, [facility] Diarrhea -C.difficile test is negative on 05/12/19 -Prescription of loperamide 2mg for use as every 8 hours as needed for diarrhea or loose stools (15 capsules total) sent electronically to [facility] [address] [place] [address] , [place] [address] chronic diastolic heart failure (EF 60 to 65%, TTE 2014) CAD as per records presence of pacemaker -continue aspirin -Lasix 40 mg x 1 ordered on 05/10/19. transferred off telemetry as of 05/10/19 -Lasix 40 mg IV x 1 ordered on 05/11/19 -would not prescribed diuretics at this time for outpatient because of diarrhea Hypertension -continue losartan 100 mg daily -amlodipine increased to 10 mg daily starting on 05/11/19 -trial diuretics as above was given -hydralazine 10 mg q8 hours -additional blood pressure medications ordered on 05/13/19 including a HCTZ dose, additional labetalol -Patient has difficult to control hypertension. 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 Hospital medical doctor also voiced concern of patient's prn use of Symbicort and also noting that respiratory steroids in Symbicort increases blood sugars and suggest patient may benefit from insulin -life educator also recommend that patient's metformin of 1000 mg twice a day to be changed to 500 mg twice a day to avoid problems with renal insufficiency, life educator also agrees with glargine (Lantus) 5 units daily on discharge -Metformin of 500 mg twice a day prescription sent electronically to [facility] [address], [place] [address] -[facility], a paper prescription of glargine (Lantus) of 5 units daily also made -Patient given paper prescription Insulin syringes - 3/10ml x 6mm (15/64") x 31G; and also paper prescription for 1 gluconometer and 30 compatible glucose test strips Hemoptysis secondary to cough -Hemoglobin generally stable, hemoptysis appears resolved History Pulmonary in the distant past DVT prophylaxis. 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 Patient's blood pressure has been difficult to control. Patient is asymptomatic - no headache, no dizziness, no lightheadedness. Breathing on room air during the day. Medical doctor informed [facility] to [facility] for [facility] at night. Patient and family would like to go home and extensive discussions on changes to home medications and discharge instructions discussed Review of Systems Review of Systems: All systems reviewed & are unremarkable except as noted in HPI & below Physical Exam Constitutional: comfortable Eyes: PERRL, conjunctivae normal, anicteric sclerae ENMT: external ear and nose normal, oropharynx normal Neck: normal visual inspection Respiratory: normal respiratory effort Cardiovascular: Rate/Rhythm: regular rate and regular rhythm Gastrointestinal (Abdomen): normal bowel sounds, soft, nontender, no hepatosplenomegaly Musculoskeletal: Head/Neck/Chest: normocephalic and head atraumatic Neurologic: PERRL, EOMI, accommodation nl, no face palsy, no dysarthria Results & Data Vital Signs (Past 12 Hours) Vital Signs Pulse BP 05/13/19 12:03 180/80 H 05/13/19 01:30 92 H 184/76 H
--- NOTE | 2019-05-13 13:16 | Discharge Summary ---
Date of Service May 13, 2019 Admission HPI Per Admitting Provider History obtained from patient, family, and records. Medical history significant for chronic diastolic heart failure (EF 60 to 65%, TTE 2015), SSS sp PPM, CAD as per records, hypertension, hyperlipidemia, COPD as per records, history PE status post Coumadin, essential tremors on primidone Rx, DM 2 on oral medications, chronic anemia (baseline hemoglobin 11-12), past tobacco abuse. Recent confinement March 2017 for intractable nausea, emesis symptoms. Today patient had sudden onset achy epigastric pain, nausea, emesis symptoms with good bowel movement. Subsequently noted junky cough symptoms followed by hemoptysis episode. No chest pain. Some shortness of breath noted. At the ER, patient received Zosyn for pneumonia. Medical History as above Surgical History : Carpal tunnel surgery, eardrum surgery, PPM, shoulder surgery, neck surgery, hernia repair Family History : Colon cancer, diabetes, heart disease Personal/Social history : Past tobacco abuse, no EtOH intake, retired [employer], [employer] Admission Exam Per Admitting Provider GENERAL: Comfortable, pleasant, slightly hard of hearing, no respiratory distress, obese SKIN: Pallor, warm HEENT: Partial alopecia, pale palpebral conjunctivae, no ptosis, dry buccal mucosa NECK : Supple, short neck, no tenderness CHEST : Decreased breath sounds, occasional no wheezes , no tenderness HEART : RRR, no obvious murmurs ABDOMEN: Some distention, nontender EXTREMITIES : Minimal LE swelling, no LE tenderness, no other conspicuous deformities noted NEUROLOGIC : Coherent, no facial asymmetry, intention tremors, no other gross focality Principal Diagnosis sepsis, Left lower lobe pneumonia to bilateral pneumonia, Hemoptysis secondary to cough, chronic diastolic heart failure, acute kidney injury (resolved), 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 with hyperglycemia, Hypertension, Diarrhea Discharge Exam Constitutional comfortable Eyes PERRL, conjunctivae normal, anicteric sclerae ENMT external ear and nose normal, oropharynx normal Neck normal visual inspection Respiratory normal respiratory effort Cardiovascular Rate/Rhythm: regular rate and regular rhythm Gastrointestinal (Abdomen) normal bowel sounds, soft, nontender, no hepatosplenomegaly Musculoskeletal Head/Neck/Chest: normocephalic and head atraumatic Neurologic PERRL, EOMI, accommodation nl, no face palsy, no dysarthria Discharge Data Allergies Allergy/AdvReac Type Severity Reaction Status Date / Time lisinopril Allergy Unknown HIVES Verified 05/07/19 18:08 Consultations 05/07/19 19:22 ED Decision to Admit Stat 05/07/19 22:48 Consult Case Management - Discharge Planning Routine 05/08/19 04:26 Consult Case Management - Discharge Planning Routine Ordered Studies 05/07/19 17:46 CT abd pelvis IV con only Stat 05/07/19 20:27 CT chest wo con Urgent Hospital Course (1) Severe sepsis: Sepsis from Left Lower Lobe pneumonia with progression to bilateral pneumonia -This is a patient who was admitted by [facility] physician on 05/08/19 for aspiration pneumonia and because of SIRS plus Acute kidney injury plus lactic acidosis, the patient met diagnosis of severe sepsis -patient has been hemodynamically stable -lactic acid has been chronically elevated on repeat labs in the 4 to 5 ranges but patient did not appear to be in acute distress -as high volume IV fluids did not significantly lower lactic acid levels, scheduled nebulizers were held as beta agonists can increase or maintain the lactic acid levels -subsequently lactic acid went down to 3.2 by evening of 05/08/19 without further aggressive IV fluids. repeat lactic acid normalized -antibiotics changed from ampicillin to ceftriaxone and azithromycin starting on 05/09/19 -05/10/19: 2 view Chest X ray shows Interval progression of the bilateral lower lobe airspace opacities and small bilateral pleural effusions. This is concerning for a pneumonia. clinically however patient is improved and better respiratory lung exam, lactic acid is normalized, white blood cell count normalized. continue ceftriaxone and azithromycin. Lasix 40 mg x 1 ordered -Chest X ray 05/12/19 AM shows generally resolved pneumonia. Antibiotics completed on 05/13/19 -overnight pulse oximetry from 05/11/19 night to 05/12/19 AM: total duration of desaturation as 1 hour 25 minutes and 42 seconds with 366 desaturation events noted (a desaturation is identified as a decrease of SpO2 percentage below 88 for at least 10 seconds. Comment also in the pulse oximetry study that corn cooker doctor had ordered patient from 2liter/min nasal cannula to room air during the study -[place] at 2 liters/minute for use at night. Patient should be evaluated by primary care doctor if he has obstructive sleep apnea -Patient need to follow up also with primary care doctor for follow up of oxygen at night use and sleep study evaluation, diabetes control, blood pressure management, repeat electrolyte labs 05/16/2019 11:20 AM Provider Gisel Limon DO Department Family [facility] 05/17/2019 9:00 AM Provider Selma Fuentes RN Department [facility] 06/11/2019 8:00 [facility] 06/18/2019 10:40 AM Provider Charlie Stafford MD Department Neurology [facility] 06/20/2019 8:15 AM Provider Pacer [facility] Department Cardiology, [facility] Diarrhea -C.difficile test is negative on 05/12/19 -Prescription of loperamide 2mg for use as every 8 hours as needed for diarrhea or loose stools (15 capsules total) sent electronically to [facility] [address], [place] [address] chronic diastolic heart failure (EF 60 to 65%, TTE 2014) CAD as per records presence of pacemaker -continue aspirin -Lasix 40 mg x 1 ordered on 05/10/19. transferred off telemetry as of 05/10/19 -Lasix 40 mg IV x 1 ordered on 05/11/19 -would not prescribed diuretics at this time for outpatient because of diarrhea Hypertension -continue losartan 100 mg daily -amlodipine increased to 10 mg daily starting on 05/11/19 -trial diuretics as above was given -hydralazine 10 mg q8 hours -additional blood pressure medications ordered on 05/13/19 including a HCTZ dose, additional labetalol -Patient has difficult to control hypertension. Blood pressure medications of amlodipine 10 mg daily, hydralazine 10 mg three times a day, renewed losartan 100 mg daily, renewed metoprolol 25 mg BID and these prescriptions sent electronically to [facility] [address], [place] [address] acute kidney injury -admission creatinine is 1.6 -after IV fluids creatinine on this admission the creatinine is 1.3 which is around baseline, creatinine is 1.2 on 05/10/19, creatinine 1.33 on 05/11/19 Type 2 diabetes mellitus without chcf current use of insulin with hyperglycemia -recent outpatient hemoglobin A1c of 7.26 February 2019 -Patient is encouraged to discuss with primary care provider on further op timization of blood pressure and diabetes management (Hemoglobin A1c of 8.5). Hospital medical doctor also voiced concern of patient's prn use of Symbicort and also noting that respiratory steroids in Symbicort increases blood sugars and suggest patient may benefit from insulin -nurse informatics educator also recommend that patient's metformin of 1000 mg twice a day to be changed to 500 mg twice a day to avoid problems with renal insufficiency, nurse informatics educator also agrees with glargine (Lantus) 5 units daily on discharge -Metformin of 500 mg twice a day prescription sent electronically to [facility] [address] [facility] , [place] [address] -[place], a [place] prescription of glargine (Lantus) of 5 units daily also made -Patient given paper prescription Insulin syringes - 3/10ml x 6mm (15") x 31G; and also paper prescription for 1 gluconometer and 30 compatible glucose test strips Hemoptysis secondary to cough -Hemoglobin generally stable, hemoptysis appears resolved History Pulmonary in the distant past DVT prophylaxis. 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, Hypertension, Diarrhea Total Time Total Time Spent Total Time Spent (In Minutes): 40 minutes Total Time Includes: Examination of the Patient, Discharge Planning, Medication Reconciliation and Communication With Other Providers Discharge Plan Discharge Items Patient Disposition: Home - Home Health Services Reason For Visit: HTN URGENCY, SEPSIS Discharge Diagnosis: sepsis, Left lower lobe pneumonia to bilateral pneumonia, Hemoptysis secondary to cough, chronic diastolic heart failure, acute kidney injury (resolved), Type 2 diabetes mellitus without chcf current use of insulin with hyperglycemia, Hypertension, Diarrhea Condition on Discharge: Good Activity: Per Instructions section Non-emergency contact: Primary Care Provider Call non-emergency contact if: you have any medication questions Follow-up/Referrals: Gisel Limon, [Primary Care Provider] - Diet: Carb Consistent or DM2 Addtl Attending Provider Instructions: Chest X ray 05/12/19 AM shows generally resolved pneumonia. Antibiotics completed on 05/13/19 overnight pulse oximetry from 05/11/19 night to 05/12/19 AM: total duration of desaturation as 1 hour 25 minutes and 42 seconds with 366 desaturation events noted (a desaturation is identified as a decrease of SpO2 percentage below 88 for at least 10 seconds. Comment also in the pulse oximetry study that corn cooker doctor had ordered patient from 2liter/min nasal cannula to room air during the study [place] at 2 liters/minute for use at night. Patient should be evaluated by primary care doctor if he has obstructive sleep apnea Patient has difficult to control hypertension. Blood pressure medications of am lodipine 10 mg daily, hydralazine 10 mg three times a day, renewed losartan 100 mg daily, renewed metoprolol 25 mg BID and these prescriptions sent electronically to [facility] [address] [place] [address] [address], [place] [address] Patient is encouraged to discuss with primary care provider on further optimization of blood pressure and diabetes management (Hemoglobin A1c of 8.5). Hospital medical doctor also voiced concern of patient's prn use of Symbicort and also noting that respiratory steroids in Symbicort increases blood sugars and suggest patient may benefit from insulin nurse informatics educator also recommend that patient's metformin of 1000 mg twice a day to be changed to 500 mg twice a day to avoid problems with renal insufficiency, nurse informatics educator also agrees with glargine (Lantus) 5 units daily on discharge Metformin of 500 mg twice a day prescription sent electronically to [facility] [address], [place] [address] Because [place], a paper prescription of glargine (Lantus) of 5 units daily also made Patient given paper prescription Insulin syringes - 3/10ml x 6mm (15/64") x 31G; and also paper prescription for 1 gluconometer and 30 compatible glucose test strips Prescription of loperamide 2mg for use as every 8 hours as needed for diarrhea or loose stools (15 capsules total) sent electronically to [facility] [address] [place] [address] [address], [place] [address] Patient need to follow up also with primary care doctor for follow up of oxygen at night use and sleep study evaluation, diabetes control, blood pressure management, repeat electrolyte labs 05/16/2019 11:20 AM Provider Gisel Limon DO Department Family Practice [facility] 05/17/2019 9:00 AM Provider Selma Fuentes RN Department [facility] 06/11/2019 8:00 AM Provider Lo Grider [facility] 06/18/2019 10:40 AM Provider Charlie Stafford MD Department Neurology [facility] 06/20/2019 8:15 AM Provider Guzman Taveras [facility] Department Cardiology, [facility] Pending Studies at Discharge: No Stand-Alone Forms: My [facility] [place] [employer], Smoking Cessation Medications and DC Order Prescriptions: New hydralazine 10 mg Tablet 10 mg PO Q8 30 Days Qty: 90 RF: 0 metformin 500 mg tablet 500 mg PO BID 30 Days Qty: 60 RF: 0 amlodipine 10 mg tablet 10 mg PO QAM 30 Days Qty: 30 RF: 0 metoprolol succinate 25 mg Tablet Extended Release 24 Hr 25 mg PO BID 30 Days Qty: 60 RF: 0 losartan 100 mg tablet 100 mg PO QAM 30 Days Qty: 30 RF: 0 metformin [Glucophage] 500 mg Tablet 500 mg PO BIDM 30 Days Qty: 60 RF: 0 Lantus U-100 Insulin 100 unit/mL solution 5 units SQ DAILY 30 Days Qty: 10 RF: 0 loperamide 2 mg Capsule 2 mg PO Q8H PRN (Reason: loose stool or diarrhea) 5 Days Qty: 15 RF: 0 Continued terazosin 5 mg capsule 5 mg PO HS RF: 0 primidone 50 mg tablet 25 mg PO BID RF: 0 atorvastatin 10 mg tablet 10 mg PO DAILY RF: 0 metoprolol succinate 50 mg tablet extended release 24 hr 25 mg PO BID RF: 0 cyanocobalamin (vitamin B-12) 1,000 mcg Tablet 1,000 mcg PO DAILY@1200 RF: 0 aspirin 81 mg Tablet,Delayed Release (Dr/Ec) 81 mg PO DAILY RF: 0 omeprazole 20 mg capsule,delayed release(DR/EC) 20 mg PO QPM RF: 0 vitamin B complex Tablet 1 tab PO DAILY@1200 RF: 0 ergocalciferol (vitamin D2) [Vitamin D2] 50,000 unit Capsule 50,000 unit PO Q7D@1800 RF: 0 losartan 100 mg tablet 100 mg PO DAILY@1200 RF: 0 magnesium 200 mg Tablet 200 mg PO HS RF: 0 Symbicort 160-4.5 mcg/actuation Hfa Aerosol Inhaler 2 puff INHALATION BID PRN (Reason: Shortness Of Breath Or Wheezing) RF: 0 Discontinued amlodipine 5 mg Tablet 5 mg PO DAILY RF: 0 metformin 1,000 mg tablet 1,000 mg PO BID RF: 0 Discharge Orders: Discharge Order (Routine); Ordered 05/13/19 Ordered By: John Courtney/Other Patient Handouts: Diabetes Manage A1C Test Admission Data Admit Date/Time: 05/07/19 20:37 Attending Provider: John Lacey Admit Provider: Dean Nguyễn Primary Care Provider: Gisel Limon Other Providers: [facility] ; Rosalia Miller ; [employer]
[2019-05-13 14:04] VITALS: O2SAT 91
[2019-05-13 14:35] VITALS: BP 155/80; PULSE 76
[2019-05-14] MEDS ORDERED: LOSARTAN POTASSIUM 50 MG TAB PO SCH (09:00)
== END 2019-05-13 15:42 | disposition home health service (06) | DRG 871 ==
LOC: ED 17:25 → 2N 20:37